=== PATIENT | male | born 1975 | race Two or more races ===

== ENCOUNTER → 2022-12-27 | Outpatient (CLI) | payer OTHER ==
[2022-12-27 22:58] LABS: Basophils # (A) 0.05 X 10*3/uL (0.00-0.10); Basophils % (A) 0.5 %; Eosinophils % (A) 2.2 %; HCT 44.6 % (39.6-50.0); HGB 14.2 d/dL (13.0-17.0); Lymphocytes # (A) 2.41 X 10*3/uL (0.90-5.00); Lymphocytes % (A) 26.2 %; MCH 28.3 pg (27.0-32.0); MCHC 31.8 d/dL (32.0-37.0); Monocytes # (A) 0.56 X 10*3/uL (0.20-1.00); Monocytes % (A) 6.1 %; NRBC Per 100 WBC 0 X 10*3/uL (0.00-0.01); Neutrophils # (A) 5.95 X 10*3/uL (1.80-7.70); Neutrophils % (A) 64.8 %; Platelet Count 261 X 10*3/uL (140-440); RBC 5.01 X 10*6/uL (4.40-5.60); RDW 12.7 % (11.5-14.5); WBC 9.19 X 10*3/uL (4.50-10.00)
[2022-12-27 23:23] LABS: ALT 28 U/L (10-49); AST 16 U/L (14-35); Albumin 4.1 d/dL (3.8-4.9); Albumin/Globulin Ratio 1.64 Ratio (1.60-3.17); Alkaline Phosphatase 60 U/L (41-126); BUN/Creat Ratio 20.25 Ratio (12.00-20.00); Blood Urea Nitrogen 16.2 mg/dL (9.0-27.0); Calcium 9.6 mg/dL (8.7-10.3); Chloride 107 mmol/L (96-109); Chol/HDL Ratio 3.16 Ratio; Globulin 2.5 d/dL (1.6-3.3); Glucose 103 mg/dL (70-110); LDL Cholesterol,Calculated 90.9 mg/dL (0.0-131.0); Sodium 143 mmol/L (135-145); Total Bilirubin 0.3 mg/dL (0.3-1.2); Total Protein 6.6 d/dL (6.2-8.2); VLDL Calculation 13.74 mg/dL (5.00-40.00)
== END | disposition home or self-care (01) ==
LOC: LABWHC1 10:16
PROVIDERS: ATTEND Family Medicine
DX: Z00.00 Encounter for general adult medical examination without abnormal findings (principal); Z12.5 Encounter for screening for malignant neoplasm of prostate; I10 Essential (primary) hypertension; E66.9 Obesity, unspecified; G47.33 Obstructive sleep apnea (adult) (pediatric)
CPT/HCPCS: 86803; 80061; 80053; 84443; 82607; 82746; 85025; 82306; 87086; 82043; 82570; 83036; 36415; G0103

== ENCOUNTER 2024-04-25 09:21 | Inpatient (IN) | payer BC ==
--- NOTE | 2024-04-25 09:36 | ED ---
General Adult HPI - General Stated complaint: Ch pressure, elevated temp Time Seen by Provider: 04/25/24 09:25 Source: patient, RN notes reviewed, old records reviewed - History of Present Illness Initial comments: This a 48-year-old male who presents to the emergency department with a past medical history significant for autism and panic attacks. Patient states this morning had a panic attack and after that he had a sharp chest pain which is now resolved. Patient states he also felt short of breath when he was having a pa eron attack. Patient states she was nauseous and did vomit and they gave him Zofran on the way in. Patient also was experiencing a temperature the last 2 days upwards of 101. Patient denies cough. Patient denies back pain. Patient has abdominal pain. - Related Data Allergies Allergy/AdvReac Type Severity Reaction Status Date / Time No Known Allergies Allergy Verified 04/25/24 09:52 Review of Systems ROS Statement: Those systems with pertinent positive or pertinent negative responses have been documented in the HPI. ROS Other: All systems not noted in ROS Statement are negative. General Exam - General Exam Comments Initial Comments: GENERAL: Patient is well-developed and well-nourished. Patient is nontoxic and well- hydrated and is in mild distress. ENT: Neck is soft and supple. No significant lymphadenopathy is noted. Oropharynx is clear. Moist mucous membranes. Neck has full range of motion without eliciting any pain. EYES: The sclera were anicteric and conjunctiva were pink and moist. Extraocular movements were intact and pupils were equal round and reactive to light. Eyelids were unremarkable. PULMONARY: Unlabored respirations. Good breath sounds bilaterally. No audible rales r honchi or wheezing was noted. CARDIOVASCULAR: There is a regular rate and rhythm without any murmurs gallops or rubs. ABDOMEN: Soft and nontender with normal bowel sounds. SKIN: Skin is clear with no lesions or rashes and otherwise unremarkable. NEUROLOGIC: Patient is alert and oriented x3. Cranial nerves II through XII are grossly intact. Motor and sensory are also intact. Normal speech, volume and content. Symmetrical smile. MUSCULOSKELETAL: Normal extremities with adequate strength and full range of motion. No lower extremity swelling or edema. No calf tenderness. LYMPHATICS: No significant lymphadenopathy is noted PSYCHIATRIC: Patient appears mildly anxious Course Vital Signs 04/25/24 04/25/24 04/25/24 09:30 09:48 10:00 Temperature 99.7 F H Pulse Rate 101 H 98 Pulse Rate [ 99 Bilateral Vascular Neurologist ] Respiratory 18 20 Rate Blood Pressure 103/63 103/63 O2 Sat by Pulse 97 97 Oximetry 04/25/24 04/25/24 04/25/24 10:30 11:00 11:46 Temperature 99.9 F H Pulse Rate 93 92 Pulse Rate [ Bilateral Vascular Neurologist ] Respiratory 26 H 25 H 18 Rate Blood Pressure 93/26 108/23 85/62 O2 Sat by Pulse 98 97 98 Oximetry Medical Decision Making - Medical Decision Making EKG is interpreted by myself EKG shows sinus tachycardia at 100 bpm OR interval 141 QRS 100 QT interval 342 QTc is 399. Patient's EKG shows no ST segment elevation. Patient does have some T wave versions in leads III and aVF as well as Q waves in 3 and aVF Was pt. sent in by a medical professional or institution ([facility]BI Grimaldo, CLAIMS INVESTIGATOR, urgent care, hospital, or fpc...) When possible be specific @ -No Did you speak to anyone other than the patient for history (EMS, parent, family, police, friend...)? What history was obtained from this source @ -No Did you review nursing and triage notes (agree or disagree)? Why? @ -I reviewed and agree with nursing and triage notes Were old charts reviewed (outside hosp., previous admission, EMS record, old EKG, old radiological studies, urgent care reports/EKG's, fpc records)? Report findings @ -No old charts were reviewed Differential Diagnosis? @ -Differential Chest Pain: Stable Angina, Unstable Angina, STEMI, NSTEMI Aortic Dissection, Pneumothorax, Musculoskeletal, Esophageal Spasm GERD, Cholecystitis, Pancreatitis, Zoster, this is not meant to be an all-inclusive list. EKG interpreted by me (3pts min.). @ -As above X-rays interpreted by me (1pt min.). @ -Chest x-ray shows no acute abnormality CT interpreted by me (1pt min.). @ -CT chest. CT shows no pulmonary embolism however the base of the lungs show some opacifications that could be consistent with atypical pneumonia U/S interpreted by me (1pt. min.). @ -None done What testing was considered but not performed or refused? (CT, X-rays, U/S, labs)? Why? @ -None What meds were considered but not given or refused? Why? @ -None Did you discuss the management of the patient with other professionals (professionals i.e. , PA, CLAIMS INVESTIGATOR, lab, RT, psych nurse, social media project manager, magnetic tape composer operator, teacher, chief technical officer, case investigator)? Give summary @ -I spoke with sound physicians agreed to admit the patient admit the patient wrote admitting orders Was smoking cessation discussed for >3mins.? @ -No Was critical care preformed (if so, how long)? @ -35 minutes Were there social determinants of health that impacted care today? How? (Homelessness, low income, unemployed, alcoholism, drug addiction, tr ansportation, low edu. Level, literacy, decrease access to med. care, shelter, rehab)? @ -No Was there de-escalation of care discussed even if they declined (Discuss DNR or withdrawal of care, Hospice)? DNR status @ -No What co-morbidities impacted this encounter? (DM, HTN, Smoking, COPD, CAD, Cancer, CVA, ARF, Chemo, Hep., AIDS, mental health diagnosis, sleep apnea, morbid obesity)? @ -None Was patient admitted / discharged? Hospital course, mention meds given and route, prescriptions, significant lab abnormalities, going to OR and other pertinent info. @ -Patient had a white count and had a fever so Rocephin was started. Patient's troponin was elevated so cardiology was consulted. They wanted to heparin started but since the patient had head trauma a few weeks ago without a normal CT reading we were waiting until the CT of the head was done and then heparin will be started. Cardiology came down to the emergency department to see the patient as did the sound physicians Undiagnosed new problem with uncertain prognosis? @ -No Drug Therapy requiring intensive monitoring for toxicity (Heparin, Nitro, Insulin, Cardizem)? @ -No Were any procedures done? @ -No Diagnosis/symptom? @ -NSTEMI Acute, or Chronic, or Acute on Chronic? @ -Acute Uncomplicated (without systemic symptoms) or Complicated (systemic symptoms)? @ -Complicated Side effects of treatment? @ -No Exacerbation, Progression, or Severe Exacerbation? @ -No Poses a threat to life or bodily function? How? (Chest pain, [place], [place], pneumonia, PE, COPD, DKA, ARF, appy, cholecystitis, CVA, Diverticulitis, Homicidal, Suicidal, threat to staff... and all critical care pts) @ -Yes this could lead to heart damage and poor perfusion with endorgan dysfunction Diagnosis/symptom? @ -Pneumonia Acute, or Chronic, or Acute on Chronic? @ -Acute Uncomplicated (without systemic symptoms) or Complicated (systemic symptoms)? @ -Complicated Side effects of treatment? @ -None Exacerbation, Progression, or Severe Exacerbation] @ -No Poses a threat to life or bodily function? @ -Yes this could lead to hypoxia and endorgan dysfunction - Lab Data Result diagrams: 04/25/24 09:46 04/25/24 09:46 Lab Results 04/25/24 04/25/24 04/25/24 Range/Units 09:46 09:46 09:46 WBC 26.3 H (3.8-10.6) k/uL RBC 4.64 (4.30-5.90) m/uL Hgb 14.1 (13.0-17.5) gm/dL Hct 41.5 (39.0-53.0) % MCV 89.5 (80.0-100.0) fL MCH 30.4 (25.0-35.0) pg MCHC 34.0 (31.0-37.0) g/dL RDW 13.3 (11.5-15.5) % Plt Count 171 (150-450) k/uL MPV 7.9 Neutrophils % 91 % Lymphocytes % 4 % Monocytes % 4 % Eosinophils % 1 % Basophils % 0 % Neutrophils # 23.8 H (1.3-7.7) k/uL Lymphocytes # 1.1 (1.0-4.8) k/uL Monocytes # 1.0 (0-1.0) k/uL Eosinophils # 0.1 (0-0.7) k/uL Basophils # 0.1 (0-0.2) k/uL PT 14.5 H (10.0-12.5) sec INR 1.4 H (<1.2) APTT 23.5 (22.0-30.0) sec D-Dimer (<0.60) mg/L FEU Sodium 138 (137-145) mmol/L Potassium 3.2 L (3.5-5.1) mmol/L Chloride 106 (98-107) mmol/L Carbon Dioxide 15 L (22-30) mmol/L Anion Gap 17 mmol/L BUN 27 H (9-20) mg/dL Creatinine 1.49 H (0.66-1.25) mg/dL Est GFR (CKD-EPI)AfAm 63 (>60 ml/min/1.73 sqM) Est GFR (CKD-EPI)NonAf 55 (>60 ml/min/1.73 sqM) Glucose 160 H (74-99) mg/dL Plasma Lactic Acid Marv (0.7-2.0) mmol/L Calcium 9.3 (8.4-10.2) mg/dL Magnesium 2.0 (1.6-2.3) mg/dL Total Bilirubin 1.5 H (0.2-1.3) mg/dL AST 47 (17-59) U/L ALT 40 (4-49) U/L Alkaline Phosphatase 134 H (38-126) U/L Troponin I (0.000-0.034) ng/mL Total Protein 6.6 (6.3-8.2) g/dL Albumin 3.9 (3.5-5.0) g/dL Influenza Type A (PCR) (Not Detectd) Influenza Type B (PCR) (Not Detectd) RSV (PCR) (Not Detectd) SARS-CoV-2 (PCR) (Not Detectd) 04/25/24 04/25/24 04/25/24 Range/Units 09:46 09:46 09:46 WBC (3.8-10.6) k/uL RBC (4.30-5.90) m/uL Hgb (13.0-17.5) gm/dL Hct (39.0-53.0) % MCV (80.0-100.0) fL MCH (25.0-35.0) pg MCHC (31.0-37.0) g/dL RDW (11.5-15.5) % Plt Count (150-450) k/uL MPV Neutrophils % % Lymphocytes % % Monocytes % % Eosinophils % % Basophils % % Neutrophils # (1.3-7.7) k/uL Lymphocytes # (1.0-4.8) k/uL Monocytes # (0-1.0) k/uL Eosinophils # (0-0.7) k/uL Basophils # (0-0.2) k/uL PT (10.0-12.5) sec INR (<1.2) APTT (22.0-30.0) sec D-Dimer 7.66 H (<0.60) mg/L FEU Sodium (137-145) mmol/L Potassium (3.5-5.1) mmol/L Chloride (98-107) mmol/L Carbon Dioxide (22-30) mmol/L Anion Gap mmol/L BUN (9-20) mg/dL Creatinine (0.66-1.25) mg/dL Est GFR (CKD-EPI)AfAm (>60 ml/min/1.73 sqM) Est GFR (CKD-EPI)NonAf (>60 ml/min/1.73 sqM) Glucose (74-99) mg/dL Plasma Lactic Acid Marv (0.7-2.0) mmol/L Calcium (8.4-10.2) mg/dL Magnesium (1.6-2.3) mg/dL Total Bilirubin (0.2-1.3) mg/dL AST (17-59) U/L ALT (4-49) U/L Alkaline Phosphatase (38-126) U/L Troponin I 1.310 H* (0.000-0.034) ng/mL Total Protein (6.3-8.2) g/dL Albumin (3.5-5.0) g/dL Influenza Type A (PCR) Not Detected (Not Detectd) Influenza Type B (PCR) Not Detected (Not Detectd) RSV (PCR) Not Detected (Not Detectd) SARS-CoV-2 (PCR) Not Detected (Not Detectd) 04/25/24 Range/Units 11:25 WBC (3.8-10.6) k/uL RBC (4.30-5.90) m/uL Hgb (13.0-17.5) gm/dL Hct (39.0-53.0) % MCV (80.0-100.0) fL MCH (25.0-35.0) pg MCHC (31.0-37.0) g/dL RDW (11.5-15.5) % Plt Count (150-450) k/uL MPV Neutrophils % % Lymphocytes % % Monocytes % % Eosinophils % % Basophils % % Neutrophils # (1.3-7.7) k/uL Lymphocytes # (1.0-4.8) k/uL Monocytes # (0-1.0) k/uL Eosinophils # (0-0.7) k/uL Basophils # (0-0.2) k/uL PT (10.0-12.5) sec INR (<1.2) APTT (22.0-30.0) sec D-Dimer (<0.60) mg/L FEU Sodium (137-145) mmol/L Potassium (3.5-5.1) mmol/L Chloride (98-107) mmol/L Carbon Dioxide (22-30) mmol/L Anion Gap mmol/L BUN (9-20) mg/dL Creatinine (0.66-1.25) mg/dL Est GFR (CKD-EPI)AfAm (>60 ml/min/1.73 sqM) Est GFR (CKD-EPI)NonAf (>60 ml/min/1.73 sqM) Glucose (74-99) mg/dL Plasma Lactic Acid Marv 2.7 H* (0.7-2.0) mmol/L Calcium (8.4-10.2) mg/dL Magnesium (1.6-2.3) mg/dL Total Bilirubin (0.2-1.3) mg/dL AST (17-59) U/L ALT (4-49) U/L Alkaline Phosphatase (38-126) U/L Troponin I (0.000-0.034) ng/mL Total Protein (6.3-8.2) g/dL Albumin (3.5-5.0) g/dL Influenza Type A (PCR) (Not Detectd) Influenza Type B (PCR) (Not Detectd) RSV (PCR) (Not Detectd) SARS-CoV-2 (PCR) (Not Detectd) Disposition Clinical Impression: Acute non-ST elevation myocardial infarction (NSTEMI), Pneumonia Disposition: ADMITTED IP TO THIS HOSP Referrals: None,Stated [REFERRING] - 1-2 days Time of Disposition: 13:20
[2024-04-25] MEDS: ACETAMINOPHEN TAB 500 MG TAB PO STA (09:58)
[2024-04-25] MEDS: IBUPROFEN 600 MG TAB PO STA (10:00)
[2024-04-25] MEDS: LORazepam 2 MG/ML INJ IV STA (10:04)
[2024-04-25] MEDS: SODIUM CHLORIDE 0.9% 500 ML 500 ML IV STA (10:07)
[2024-04-25 10:12] LABS: ALT 40 U/L (4-49); AST 47 U/L (17-59); African American GFR (CKD) 63 (>60 ml/min/1.73 sqM); Albumin 3.9 g/dL (3.5-5.0); Alkaline Phosphatase 134 U/L (38-126); Anion Gap 17 mmol/L; Blood Urea Nitrogen 27 mg/dL (9-20); Calcium 9.3 mg/dL (8.4-10.2); Carbon Dioxide 15 mmol/L (22-30); Chloride 106 mmol/L (98-107); Glucose 160 mg/dL (74-99); Non-African American GFR(CKD) 55 (>60 ml/min/1.73 sqM); Potassium 3.2 mmol/L (3.5-5.1); Sodium 138 mmol/L (137-145); Total Bilirubin 1.5 mg/dL (0.2-1.3); Total Protein 6.6 g/dL (6.3-8.2)
[2024-04-25 10:18] LABS: Basophils # (A) 0.1 k/uL (0-0.2); Basophils % (A) 0 %; Eosinophils # (A) 0.1 k/uL (0-0.7); Eosinophils % (A) 1 %; HCT 41.5 % (39.0-53.0); HGB 14.1 gm/dL (13.0-17.5); Lymphocytes # (A) 1.1 k/uL (1.0-4.8); Lymphocytes % (A) 4 %; MCH 30.4 pg (25.0-35.0); MCV 89.5 fL (80.0-100.0); Mean Platelet Volume 7.9; Monocytes % (A) 4 %; Neutrophils # (A) 23.8 k/uL (1.3-7.7); Neutrophils % (A) 91 %; Platelet Count 171 k/uL (150-450); RBC 4.64 m/uL (4.30-5.90); RDW 13.3 % (11.5-15.5); WBC 26.3 k/uL (3.8-10.6)
[2024-04-25 10:26] LABS: INR 1.4 (<1.2); Partial Thromboplastin Time 23.5 sec (22.0-30.0); Prothrombin Time 14.5 sec (10.0-12.5)
--- NOTE | 2024-04-25 10:29 | XR ---
EXAMINATION TYPE: XR chest 2V DATE OF EXAM: 04/25/2024 10:20 AM COMPARISON: None. CLINICAL INDICATION: Male, 48 years old with history of Chest Pain, TECHNIQUE: XR chest 2V view(s) obtained. FINDINGS: The heart size is normal. The pulmonary vasculature is normal. The lungs are clear. IMPRESSION: 1. No acute pulmonary process. [facility], , 04/25/2024 10:27 AM
[2024-04-25 10:36] LABS: Influenza A Not Detected (Not Detectd); Influenza B Not Detected (Not Detectd); RSV Not Detected (Not Detectd)
--- NOTE | 2024-04-25 11:06 | CT ---
EXAMINATION TYPE: CT chest angio for PE CT DLP: 436 mGycm, Automated exposure control for dose reduction was used. DATE OF EXAM: 04/25/2024 10:51 AM COMPARISON: Chest radiograph from same day. CLINICAL INDICATION:Male, 48 years old with history of Chest pain; SOB TECHNIQUE/CONTRAST: CTA scan of the thorax is performed with IV Contrast, patient injected with 80 mL of Isovue 370, pulm onary embolism protocol. MIP images are created and reviewed. FINDINGS: Pulmonary Artery: There is no evidence for a filling defect within the pulmonary vasculature to sugge st acute pulmonary embolism. The pulmonary artery is of normal size. Lungs/Pleura: No pleural effusion or pneumothorax. Minimal dependent groundglass opacities/atelectasi s. No suspicious pulmonary nodule or mass. Airway: Large airways are patent. Heart: Heart is within normal limits for size.. Vasculature: No evidence of aortic aneurysm. Mediastinum: No gross evidence of adenopathy. Musculoskeletal: No acute osseous abnormalities Soft Tissues: Unremarkable. Lower neck: No significant findings. Upper Abdomen: No significant findings. IMPRESSION: 1. No evidence of pulmonary embolism. 2. Minimal dependent groundglass opacities/atelectasis. Correlate for possible atypical pneumonia. [facility], , 04/25/2024 11:04 AM
[2024-04-25] MEDS ORDERED: HEPARIN SODIUM 1,000 UN/ML (10ML VL) IV PRN (11:10)
[2024-04-25] MEDS: cefTRIAXone IN SWFI 1,000 MG/10 ML SYRINGE IVP STA (11:37)
[2024-04-25] MEDS: SODIUM CHLORIDE 0.9% 1,000 ML IV STA (12:09)
[2024-04-25] MEDS: SODIUM CHLORIDE 0.9% 1,000 ML IV SCH (12:45)
[2024-04-25] MEDS: LACTATED RINGERS 1,000 ML IV ONE ×2 (12:53→12:59)
--- NOTE | 2024-04-25 13:09 | P.HPIM ---
History of Present Illness H&P Date: 04/25/24 History of present illness; 48-year-old man with PMH of autism panic attacks, had a panic attack earlier this morning with associated sharp chest pain, shortness of breath and dizziness. He describes the chest pain as being a sharp pain that is centrally located without radiation. He notes the pain having been 910/10 in intensity. He notes that nothing alleviates the pain and even presently when exerting himself in the bed he notes some centrally located chest pain. Additionally, he endorses 2-day history of elevated temperature, with Tmax being 101 F, and "not feeling well". He states that he had been feeling this way dating back more than a week ago, at that time he went to [facility] and was prescribed amoxicillin and prednisone and he began to feel better. However, he notes that this past weekend he began feeling the same way he had been before, with increased fatigue and fevers. Labratory review: -WBCs 26.3, hemoglobin 14.1, hematocrit 41.5, platelet 171; D-dimer 7.66; sodium 138, potassium 3.2, bicarb 15, BUN 27, creatinine 1.49, calcium 9.3, magnesium 2.0, total bilirubin 1.5, AST 47, ALT 40, alkaline phosphatase 134; troponin 1.310 -Respiratory viral panel all negative Imaging: -Chest x-ray done in the ER showed no acute pulmonary process -CTA chest showed no evidence of pulmonary embolism with minimal dependent groundglass opacity/atelectasis, to be correlated for atypical pneumonia -EKG done in the ER showed heart rate of 100, no ST segment elevation or depression seen, T wave inversions. Vitals: Temp 99.7 F, blood pressure 103/63, heart rate 101, respiratory rate 18, SpO2 97% on room air Patient admitted to internal medicine service REVIEW OF SYSTEMS: Pertinent positives and negatives noted in HPI. The rest of the 14-point review of systems is negative. Physical Exam: General: nontoxic, in some distress/discomfort Derm: warm, dry, intact Head: atraumatic, normocephalic, symmetric Eyes: EOMI, anicteric sclera Mouth: no lip lesion, mucus membranes moist Cardiovascular: S1 S2 reg, no murmur, rubs, or gallops Lungs: CTA bilateral, no rales, no accessory muscle use Abdominal: soft, non-tender to palpataion, no appreciable organomegaly Extremities: no gross muscle atrophy, no edema, no contractures Neuro: Alert, Oriented, CNII-XII grossly intact, gait normal Psych: well appearing, appropriate affect Assessment and plan 48-year-old man with PMH of autism panic attacks, had a panic attack earlier this morning with associated sharp chest pain, shortness of breath and dizziness. He describes the chest pain as being a sharp pain that is centrally located without radiation. He notes the pain having been 910/10 in intensity. Additionally, he endorses 2-day history of elevated temperature, with Tmax being 101 F, and "not feeling well". #Acute NSTEMI #History of panic attacks -Trend troponins: Initial troponin 1.310 -EKG done in the ER showed sinus rhythm heart rate of 100, with T wave inversions in inferior leads -Continue with aspirin 81 mg daily -Continue Lipitor 40 mg nightly -To be initiated on heparin drip, has had head trauma in the last [address] brain ordered, currently pending, continue with heparin drip pending the result -Lipid panel and hemoglobin A1c pending -Cardiac monitoring -Supplemental oxygen as needed -Cardiology consulted -Echocardiogram ordered #Severe sepsis secondary to likely atypical pneumonia #Leukocytosis of unknown origin with neutrophilic predominance, atypical pneumonia v dehydration #Anion gap metabolic acidosis #Acute kidney injury #Hypokalemia #Transaminitis #Elevated D-dimer -CTA chest read and reviewed, ruled out pulmonary embolism -Total bilirubin 1.5, alkaline phosphatase 134 -Lactic acid 2.7 -Started on Zithromax IV 500 mg and Rocephin IV 2 g daily -Liver US pending -Blood culture pending -Sputum culture pending -Legionella pending -LR 150 cc/h -Continue monitor CBC and CMP DVT prophylaxis: To be started on heparin drip The patient is admitted with an anticipated more than than 2 midnight stay for evaluation of sepsis and non-STEMI Anticipated discharge place: Pending clinical course Dictation was produced using [employer] dictation software. please excuse any grammatical, word or spelling errors. A total of 55 minutes was spent on the care of this complex patient more than 50% of the time was spent in counseling and care coordination. I have seen and evaluated the patient today. Discussed with the resident and agree with the residents finding and plan as documented in the resident's note. Changes highlighted in blue font. Past Medical History Past Medical History: Hypertension History of Any Multi-Drug Resistant Organisms: None Reported Past Psychological History: Anxiety, Panic Disorder Smoking Status: Never smoker Past Alcohol Use History: Occasional Past Drug Use History: None Reported Medications and Allergies Allergies Allergy/AdvReac Type Severity Reaction Status Date / Time No Known Allergies Allergy Verified 04/25/24 09:52 Physical Exam Vitals: Vital Signs Temp Pulse Pulse Resp BP Pulse Ox 04/25/24 11:46 99.9 F H 92 18 85/62 98 04/25/24 11:00 93 25 H 108/23 97 04/25/24 10:30 26 H 93/26 98 04/25/24 10:00 98 20 103/63 97 04/25/24 09:48 99 04/25/24 09:30 99.7 F H 101 H 18 103/63 97 Intake and Output 04/24/24 04/25/24 04/25/24 22:59 06:59 14:59 Other: Weight 93.894 kg Results CBC & Chem 7: 04/25/24 09:46 04/25/24 09:46 Labs: Abnormal Lab Results - Last 24 Hours (Table) 04/25/24 04/25/24 04/25/24 Range/Units 09:46 09:46 09:46 WBC 26.3 H (3.8-10.6) k/uL Neutrophils # 23.8 H (1.3-7.7) k/uL PT 14.5 H (10.0-12.5) sec INR 1.4 H (<1.2) D-Dimer (<0.60) mg/L FEU Potassium 3.2 L (3.5-5.1) mmol/L Carbon Dioxide 15 L (22-30) mmol/L BUN 27 H (9-20) mg/dL Creatinine 1.49 H (0.66-1.25) mg/dL Glucose 160 H (74-99) mg/dL Total Bilirubin 1.5 H (0.2-1.3) mg/dL Alkaline Phosphatase 134 H (38-126) U/L Troponin I (0.000-0.034) ng/mL 04/25/24 04/25/24 Range/Units 09:46 09:46 WBC (3.8-10.6) k/uL Neutrophils # (1.3-7.7) k/uL PT (10.0-12.5) sec INR (<1.2) D-Dimer 7.66 H (<0.60) mg/L FEU Potassium (3.5-5.1) mmol/L Carbon Dioxide (22-30) mmol/L BUN (9-20) mg/dL Creatinine (0.66-1.25) mg/dL Glucose (74-99) mg/dL Total Bilirubin (0.2-1.3) mg/dL Alkaline Phosphatase (38-126) U/L Troponin I 1.310 H* (0.000-0.034) ng/mL
--- NOTE | 2024-04-25 13:17 | P.CRDCN ---
History of Present Illness History of present illness: HISTORY OF PRESENT ILLNESS: This is a 48-year-old male with a past medical history significant for hypertension, obesity, and anxiety. Patient not follow with a geriatric nurse practitioner. We have been asked to see the patient in consultation for elevated troponins. Patient examined at the bedside in the emergency room. Patient states this morning he had a panic attack. He states shortly after this he began to have chest pain in the middle of his chest that felt like a stabbing sensation. He s tates the pain was in the middle of his chest and also on the right side of his chest. He states the pain lasted for about 15 minutes and then subsided. He states that he was not doing anything exertionally related at that time. He denies having any previous episodes of chest pain in the past. The patient does report that he has been feeling ill over the past week. He states that he went to his PCP office last Thursday and was diagnosed with an upper respiratory infection and was prescribed steroids and antibiotics. He states that he was starting to feel little bit better until this weekend when he started to feel worse again. He does report having a fever at home. According to EMS he had 101.0 temperature and route to the hospital. He continues to have a low-grade fever of 99.9. Patient is also hypotensive with a systolic blood pressure in the 80s90s. DIAGNOSTICS: - EKG reveals sinus tachycardia with T wave inversions inferiorly. - Chest xray negative for acute process. - Chest CTA: Negative for pulmonary embolism. Minimal dependent groundglass opacity/atelectasis. Correlate for possible atypical pneumonia. - Laboratory data: WBC 26.3. Hemoglobin 14.1. Platelet count 171. Sodium 138. Potassium 3.2. BUN 27. Creatinine 1.49. Lactic acid 2.7. Troponin 1.310. - Current home cardiac medications include lisinopril 20 mg daily and amlodipine 5 mg daily - No previous echocardiogram, stress test, or cardiac catheterization available in EMR for review REVIEW OF SYSTEMS: At the time of my exam: CONSTITUTIONAL: Reports fever or chills. HEENT: Denies blurred vision, vision changes, or eye pain. Denies hemoptysis CARDIOVASCULAR: Denies chest pain. Denies orthopnea. Denies PND. Denies palpitations RESPIRATORY: Denies shortness of breath. GASTROINTESTINAL: Denies abdominal pain. Denies nausea or vomiting. HEMATOLOGIC: Denies bleeding disorders. GENITOURINARY: Denies any blood in urine. SKIN: Denies pruitis. Denies rash. PHYSICAL EXAM: VITAL SIGNS: Reviewed. GENERAL: Well-developed in no acute distress. HEENT: Head is normocephalic. Pupils are equal, round. Sclerae anicteric. Mucous membranes of the mouth are moist. Neck supple. No JVD or thyromegaly LUNGS: Respirations even and unlabored. Lungs with fine bilateral crackles HEART: Regular rate and rhythm. S1 and S2 heard. ABDOMEN: Soft. Nondistended. Nontender. EXTREMITIES: Normal range of motion. No clubbing or cyanosis. Peripheral pulses intact. No lower extremity edema NEUROLOGIC: Awake and alert. Oriented x 3. ASSESSMENT: Elevated troponins, Type I versus type II [place] Recent upper respiratory infection Sepsis with leukocytosis, fever, and hypotension Acute kidney injury Elevated D-dimer, CTA negative for pulmonary embolism History of hypertension PLAN: Obtain 2D echo to assess cardiac structure and function Trend troponins Begin IV heparin Begin IV fluids. Repeat kidney function in a.m. Add aspirin 81 mg daily Add atorvastatin 40 mg at night Check lipid panel and hemoglobin A1c Hold home antihypertensive medications due to hypotension Consult pulmonary for evaluation Patient may require cardiac catheterization pending trend of troponins and echocardiogram results Further recommendations pending patient course Nurse practitioner note has been reviewed by physician. Signing provider agrees with the documented findings, assessment, and plan of care documented by [employer] AD[employer]RATION SUPERVISOR as a scribe. Past Medical History Past Medical History: Hypertension History of Any Multi-Drug Resistant Organisms: None Reported Past Psychological History: Anxiety, Panic Disorder Smoking Status: Never smoker Past Alcohol Use History: Occasional Past Drug Use History: None Reported Medications and Allergies Allergies Allergy/AdvReac Type Severity Reaction Status Date / Time No Known Allergies Allergy Verified 04/25/24 09:52 Physical Exam Vitals: Vital Signs Temp Pulse Pulse Resp BP Pulse Ox 04/25/24 12:46 85 18 90/43 99 04/25/24 11:46 99.9 F H 92 18 85/62 98 04/25/24 11:00 93 25 H 108/23 97 04/25/24 10:30 26 H 93/26 98 04/25/24 10:00 98 20 103/63 97 04/25/24 09:48 99 04/25/24 09:30 99.7 F H 101 H 18 103/63 97 Intake and Output 04/24/24 04/25/24 04/25/24 22:59 06:59 14:59 Other: Weight 93.894 kg Results 04/25/24 09:46 04/25/24 09:46 Cardiac Enzymes 04/25/24 04/25/24 Range/Units 09:46 09:46 AST 47 (17-59) U/L Troponin I 1.310 H* (0.000-0.034) ng/mL Coagulation 04/25/24 Range/Units 09:46 PT 14.5 H (10.0-12.5) sec APTT 23.5 (22.0-30.0) sec CBC 04/25/24 Range/Units 09:46 WBC 26.3 H (3.8-10.6) k/uL RBC 4.64 (4.30-5.90) m/uL Hgb 14.1 (13.0-17.5) gm/dL Hct 41.5 (39.0-53.0) % Plt Count 171 (150-450) k/uL Comprehensive Metabolic Panel 04/25/24 Range/Units 09:46 Sodium 138 (137-145) mmol/L Potassium 3.2 L (3.5-5.1) mmol/L Chloride 106 (98-107) mmol/L Carbon Dioxide 15 L (22-30) mmol/L BUN 27 H (9-20) mg/dL Creatinine 1.49 H (0.66-1.25) mg/dL Glucose 160 H (74-99) mg/dL Calcium 9.3 (8.4-10.2) mg/dL AST 47 (17-59) U/L ALT 40 (4-49) U/L Alkaline Phosphatase 134 H (38-126) U/L Total Protein 6.6 (6.3-8.2) g/dL Albumin 3.9 (3.5-5.0) g/dL Current Medications Generic Name Dose Route Start Last Admin Trade Name Freq PRN Reason Stop Dose Admin Aspirin 81 mg 04/26/24 09:00 Aspirin 81 Mg PO DAILY [facility] Atorvastatin Calcium 40 mg 04/25/24 21:00 Atorvastatin 40 Mg Tab PO HS JOB Heparin Sodium (Porcine) 0 unit 04/25/24 11:10 Heparin Sodium 1,000 Un/Ml (10ml Vl) IV PER PROTOCOL PRN Low PTT Protocol Heparin Sodium/Sodium Chloride 250 mls @ 10 mls/hr 04/25/24 11:15 25,000 unit/ Sodium Chloride IV .Q24H JOB Protocol 10.65 UNITS/KG/HR Lactated Ringer's 1,000 mls @ 150 mls/hr 04/25/24 12:37 04/25/24 12:53 Lactated Ringers IV 04/25/24 19:16 100 mls/hr .Q6H40M ONE Administration Lactated Ringer's 1,000 mls @ 999 mls/hr 04/25/24 12:55 04/25/24 12:59 Lactated Ringers IV 04/25/24 13:55 999 mls/hr .Q1H1M ONE Administration Ceftriaxone Sodium 2 gm/ 50 mls @ 100 mls/hr 04/26/24 09:00 Sodium Chloride IVPB Q24HR JOB Protocol Azithromycin 500 mg/ Sodium 250 mls @ 250 mls/hr 04/25/24 13:00 Chloride IVPB 04/27/24 09:59 DAILY JOB Protocol Potassium Chloride 40 meq 04/25/24 13:00 Potassium Chloride Er 20 Meq Tab.Er PO 04/25/24 13:01 ONCE STA Intake and Output 04/24/24 04/25/24 04/25/24 22:59 06:59 14:59 Other: Weight 93.894 kg Patient Weight 04/26/24 06:59 Weight 93.894 kg 04/25/24 09:46 04/25/24 09:46
[2024-04-25] MEDS ORDERED: NITROGLYCERIN SL TABS 0.4 MG TAB SUBLINGUAL PRN (13:20)
[2024-04-25] MEDS: POTASSIUM CHLORIDE ER 20 MEQ TAB.ER PO STA (13:49)
--- NOTE | 2024-04-25 14:48 | US ---
EXAMINATION TYPE: US liver DATE OF EXAM: 04/25/2024 COMPARISON: NONE CLINICAL INDICATION: Male, 48 years old with history of transaminitis; LFTs TECHNIQUE: Grayscale and color Doppler imaging of the right upper quadrant was performed. FINDINGS: EXAM MEASUREMENTS: Liver Length: 18.8 cm Gallbladder Wall: 0.3 cm CBD: obscured by bowel Right Kidney: 10.2x6.3x5.4 cm [employer] INST[employer]ER NOTES: Pancreas: Obscured by bowel gas Liver: increased size and echogenicity Gallbladder: wnl as best visualized Evidence for sonographic De Paz's sign: No CBD: Obscured by overlying bowel gas Right Kidney: wnl as best visualized exam very limited by bowel gas, body habitus, rib shadows IMPRESSION: 1. Hepatomegaly. 2. Limited evaluation due to bowel gas and body habitus [facility], , 04/25/2024 2:45 PM
--- NOTE | 2024-04-25 15:05 | CT ---
EXAMINATION TYPE: CT brain wo con DATE OF EXAM: 04/25/2024 2:56 PM COMPARISON: None. CLINICAL INDICATION: Male, 48 years old with history of Trauma, PT has previous hx of fall, head inju ry. Dr. Morfin also wants to start heparin drip. Pt had contrast 4 hours prior for CTA chest, Dr. Shirley breen said to wait 4 hours post injection to scan brain. TECHNIQUE: Brain: Axial CT images of the brain were obtained with coronal and sagittal reformats created and rev iewed. Contrast used: None. Oral contrast used: None. CT DLP: 1168.4 mGycm, Automated exposure control for dose reduction was used. FINDINGS: Brain: Extra-axial spaces: No abnormal extra-axial fluid collections. Ventricular system: Within normal limits Cerebral parenchyma: No acute intraparenchymal hemorrhage or mass effect. The pham-white junction is well differentiated. Cerebellum: Unremarkable. Mass effect: No evidence of midline shift. Intracranial vasculature: unremarkable Soft tissues: Normal. Calvarium/osseous structures: No depressed skull fracture. Paranasal sinuses and mastoid air cells: Mild scattered paranasal sinus disease. Visualized orbits: Orbital contents are intact. IMPRESSION: No acute intracranial process. [facility], , 04/25/2024 3:02 PM
[2024-04-25] MEDS: HEPARIN SODIUM 1,000 UN/ML (10ML VL) IV ONE (15:21)
[2024-04-25] MEDS: HEPARIN SOD,PORK IN 0.45% NACL 25,000 UNIT in 0.45% NACL 1 250ML.BAG IV SCH (15:25)
[2024-04-25] MEDS: AZITHROMYCIN 500 MG in SODIUM CHLORIDE 0.9% 250 ML IVPB SCH (15:30)
[2024-04-25 16:03] LABS: Chol/HDL Ratio 2.41 Ratio; LDL Cholesterol,Calculated 73.3 mg/dL (0.0-131.0); VLDL Calculation 10.36 mg/dL (5.00-40.00)
[2024-04-25] MEDS: ONDANSETRON 4 MG/2 ML VIAL IVP PRN (16:13)
[2024-04-25 20:04] LABS: Appearance,Urine Clear (Clear); Bacteria,Urine Rare /hpf; Bilirubin,Urine Negative (Negative); Blood,Urine Moderate (Negative); Color,Urine Yellow; Glucose,Urine (UA) Negative (Negative); Ketones,Urine Trace (Negative); Leukocyte Esterase,Urine Moderate (Negative); Mucus,Urine Rare /hpf; Nitrite,Urine Negative (Negative); Protein,Urine 1+ (Negative); RBC,Urine 14 /hpf (0-5); Specific Gravity,Urine >1.050 (1.001-1.035); Squamous Epithelial Cell,Urine 1 /hpf (0-4); WBC,Urine 33 /hpf (0-5)
[2024-04-25] MEDS: ATORVASTATIN 40 MG TAB PO SCH (20:23)
[2024-04-26] MEDS: SODIUM CHLORIDE 0.9% 500 ML 500 ML IV ONE (01:29)
[2024-04-26] MEDS: SODIUM CHLORIDE 0.9% 1,000 ML IV SCH (03:18)
--- NOTE | 2024-04-26 05:20 | P.CNPUL ---
History of Present Illness Consult date: 04/26/24 Requesting physician: Sarahi Muhammad Reason for consult: pneumonia Chief complaint: Shortness of breath, chest pain History of present illness: Patient is a 48-year-old male with past medical history significant for hypertension, urethral stricture with previous dilation. His primary care pr ovider is Dr. Garvin. Patient presents emergency department yesterday afternoon complaining of substernal chest pain, diaphoresis, nausea and vomiting. Chest pain, severe, nonradiating, reported lasting 10 to 15 minutes. He did take 4 baby aspirin at home. His is at bedside, and states that he did get confused and pulled down the shower curtain at home. Patient believes he was having a panic attack. Of note, patient reportedly recently treated for URI by his PCP 1 to 2 weeks ago, given a course of amoxicillin and prednisone burst taper. States his symptoms initially improved and then worsened following completion of medications. Reportedly, having intermittent fevers, cough with occasional clear phlegm production. Denies purulent sputum, hemoptysis. Denies any abdominal pain. Denies any diarrhea. Appetite has been fair. Viral screen done at our facility negative for influenza A/B, COVID, RSV. Workup in the emergency department including a chest CTA which did not show any filling defects consistent with pulmonary embolism. Very minimal dependent groundglass opacities or atelectasis. No pleural effusions or pneumothoraces. CBC remarkable for leukocytosis with a WBC count of 26.3, hemoglobin 14.1, platelets 171. D-dimer was 7.6. CMP: Sodium 138, potassium 3.2, chloride 106, serum bicarb 15, BUN 27, creatinine 1.49, glucose 160. NT proBNP elevated at 2040. Troponins were elevated at 1.3, 1.17, and 0.8 respectively. EKG: Normal sinus rhythm, rate 100 bpm, T wave inversions in 3, aVF; no ST segment elevation or depressions. Patient was started on IV heparin per cardiology. Patient currently being evaluated in the emergency department. Resting comfortably in bed. His spouse is at bedside. Denies any further chest pain. Heparin continues per protocol. Denies heart palpitations, lightheadedness, syncopal events, orthopnea, PND, lower extremity edema. He is alert and oriented. Brain CT was done earlier and unremarkable for acute intracranial process. Did have low-grade temperature of 99.9 F. Empirically placed on antibiotics in the ED. UA remarkable for pyuria and rare bacteriuria. Blood pressure is marginal, did receive 2 L crystalloid fluid bolus in the ED. Current vital signs: Temperature 97.6 F, heart rate 70 bpm, blood pressure 87/59 mmHg, SpO2 97% on room air. Review of Systems Constitutional: Reports chills, Reports fatigue, Reports fever, Reports night sweats, Reports poor appetite, Denies weight gain, Denies weight loss Ears, nose, mouth and throat: Denies headache, Denies nasal congestion, Denies nasal discharge, Denies post-nasal drip, Denies sinus pain, Denies sinus pressure, Denies sore throat Cardiovascular: Reports as per HPI Respiratory: Reports as per HPI Gastrointestinal: Reports as per HPI Genitourinary: Reports dysuria, Reports urinary frequency, Reports urinary retention, Denies flank pain, Denies hematuria Musculoskeletal: Denies limitation of motion Integumentary: Denies rash Neurological: Denies seizures, Denies syncope Psychiatric: Reports anxiety, Denies depression Past Medical History Past Medical History: Hypertension History of Any Multi-Drug Resistant Organisms: None Reported Past Psychological History: Anxiety, Panic Disorder Smoking Status: Never smoker Past Alcohol Use History: Occasional Past Drug Use History: None Reported Medications and Allergies Home Medications Medication Instructions Recorded Confirmed Type Multivitamins, Thera [Multivitamin 1 tab PO DAILY 04/25/24 04/25/24 History (formulary)] amLODIPine [Norvasc] 5 mg PO DAILY 04/25/24 04/25/24 History lisinopriL [Zestril] 20 mg PO DAILY 04/25/24 04/25/24 History Allergies Allergy/AdvReac Type Severity Reaction Status Date / Time No Known Allergies Allergy Verified 04/25/24 09:52 Physical Exam Vitals: Vital Signs Temp Pulse Pulse Resp BP Pulse Ox 04/26/24 00:13 67 18 87/59 97 04/25/24 21:43 65 18 78/60 99 04/25/24 20:26 97.6 F 72 18 88/59 100 04/25/24 18:30 80 14 82/55 99 04/25/24 18:00 71 16 82/52 99 04/25/24 17:39 97.9 F 04/25/24 17:30 74 16 75/57 99 04/25/24 17:00 80 17 71/52 96 04/25/24 16:30 86 20 72/53 96 04/25/24 16:00 85 16 87/58 97 04/25/24 15:30 20 86/63 95 04/25/24 15:00 81 18 89/56 96 04/25/24 14:30 87 11 L 88/60 99 04/25/24 14:00 86 9 L 105/66 98 04/25/24 13:30 86 21 72/55 98 04/25/24 13:00 89 11 L 90/43 99 04/25/24 12:46 97.4 F L 85 18 90/43 99 04/25/24 12:30 88 14 82/58 04/25/24 12:00 21 80/62 98 04/25/24 11:46 99.9 F H 92 18 85/62 98 04/25/24 11:30 89 25 H 84/66 99 04/25/24 11:00 93 25 H 108/23 97 04/25/24 10:30 26 H 93/26 98 04/25/24 10:00 98 20 103/63 97 04/25/24 09:48 99 04/25/24 09:30 99.7 F H 101 H 18 103/63 97 Intake and Output 04/25/24 04/25/24 04/26/24 14:59 22:59 06:59 Other: Weight 93.894 kg GENERAL EXAM: Alert, 48-year-old male, comfortable in no apparent distress. HEAD: Normocephalic and atraumatic EYES: Normal reaction of pupils, equal size. NOSE: Clear with pink turbinates. THROAT: No erythema or exudates. NECK: No masses, no JVD. CHEST: No chest wall deformity. LUNGS: Equal air entry with no crackles, wheeze, rhonchi or dullness. On room air. No conversational dyspnea or accessory muscle use.. CVS: S1 and S2 normal with soft grade 1 systolic murmur, regular rhythm. No other extra heart sounds ABDOMEN: No hepatosplenomegaly, active bowel sounds, no guarding or rigidity. SPINE: No scoliosis or deformity SKIN: No rashes CENTRAL NERVOUS SYSTEM: No focal deficits, tone is normal in all 4 extremities. EXTREMITIES: There is no peripheral edema, clubbing, or cyanosis. Peripheral pulses are intact. Results - Laboratory Findings CBC and BMP: 04/26/24 07:58 04/26/24 07:30 PT/INR, D-dimer PT 14.5 sec (10.0-12.5) H 04/25/24 09:46 INR 1.4 (<1.2) H 04/25/24 09:46 D-Dimer 7.66 mg/L FEU (<0.60) H 04/25/24 09:46 Abnormal lab findings: Abnormal Labs 04/25/24 04/25/24 04/25/24 09:46 09:46 09:46 WBC 26.3 H Neutrophils # 23.8 H PT 14.5 H INR 1.4 H APTT D-Dimer Potassium 3.2 L Carbon Dioxide 15 L BUN 27 H Creatinine 1.49 H Glucose 160 H Plasma Lactic Acid Marv Total Bilirubin 1.5 H Alkaline Phosphatase 134 H Troponin I Ur Specific [place] Urine Protein Urine Ketones Urine Blood Ur Leukocyte Esterase Urine RBC Urine WBC Urine Bacteria Urine Mucus 04/25/24 04/25/24 04/25/24 09:46 09:46 11:25 WBC Neutrophils # PT INR APTT D-Dimer 7.66 H Potassium Carbon Dioxide BUN Creatinine Glucose Plasma Lactic Acid Marv 2.7 H* Total Bilirubin Alkaline Phosphatase Troponin I 1.310 H* Ur Specific [place] Urine Protein Urine Ketones Urine Blood Ur Leukocyte Esterase Urine RBC Urine WBC Urine Bacteria Urine Mucus 04/25/24 04/25/24 04/25/24 13:08 16:11 16:11 WBC Neutrophils # PT INR APTT D-Dimer Potassium Carbon Dioxide BUN Creatinine Glucose Plasma Lactic Acid Marv 3.0 H* Total Bilirubin Alkaline Phosphatase Troponin I 1.170 H* 0.859 H* Ur Specific [place] Urine Protein Urine Ketones Urine Blood Ur Leukocyte Esterase Urine RBC Urine WBC Urine Bacteria Urine Mucus 04/25/24 04/25/24 04/25/24 18:20 19:19 19:19 WBC Neutrophils # PT INR APTT D-Dimer Potassium Carbon Dioxide BUN Creatinine Glucose Plasma Lactic Acid Marv 2.5 H* Total Bilirubin Alkaline Phosphatase Troponin I 0.804 H* Ur Specific [place] >1.050 H Urine Protein 1+ H Urine Ketones Trace H Urine Blood Moderate H Ur Leukocyte Esterase Moderate H Urine RBC 14 H Urine WBC 33 H Urine Bacteria Rare H Urine Mucus Rare H 04/25/24 21:11 WBC Neutrophils # PT INR APTT 58.4 H D-Dimer Potassium Carbon Dioxide BUN Creatinine Glucose Plasma Lactic Acid Marv Total Bilirubin Alkaline Phosphatase Troponin I Ur Specific [place] Urine Protein Urine Ketones Urine Blood Ur Leukocyte Esterase Urine RBC Urine WBC Urine Bacteria Urine Mucus - Diagnostic Findings Chest x-ray: image reviewed Assessment and Plan Assessment: Acute dyspnea, chest CTA unremarkable for filling defects consistent with pulmonary embolism, very minimal bibasilar groundglass opacity disease/atelectasis. No obvious focal infiltrates or definitive pneumonia. Elevated troponins, rule out non-ST elevation VT, continues on IV heparin per cardiology Acute leukocytosis Anion gap metabolic acidosis Acute kidney injury, creatinine 1.49 Hypokalemia, replaced History of urethral stricture with previous dilation History of hypertension Obesity, with a BMI 31.5 kg/m Plan: Patient's medications, labs, chest x-ray reviewed Currently on room air Continues on IV heparin per cardiology Echocardiogram scheduled for the morning Blood pressure remains marginal, give an additional 500 mL normal saline bolus and continue normal saline at 75 mm/h Continues on antibiotics, which are empiric Blood and urine cultures pending Procalcitonin level Viral screen negative for influenza A/B, COVID, RSV We will continue to follow I have personally seen and examined the patient, performed the documentation and the assessment and plan as written. Number of minutes spent on the visit:20 This is a joint evaluation that was done along with the nurse practitioner. This evaluation was done more than 30 minutes, specifically 32 minutes. The patient was seen and evaluated. The patient presented to us with a vague subste rnal chest pain and diaphoresis along with nausea and vomiting. Noted, the patient's cardiac enzymes were elevated. He came in with a creatinine of 1.3 and dropped down to 0.8 and the patient is currently on IV heparin. Echocardiogram was also done and the patient has impairment of the LV function and the patient's left ventricular ejection fraction was estimated to be at 35 to 40%. He has impairment of LV function along with mild pulm hypertension. No significant valvular abnormalities. I also reviewed the CT of the chest that showed no evidence of any pulmonary embolism. There is minimal dependent groundglass changes/atelectasis and a CAT scan of the abdomen and pelvis was also completed today that showed similar findings in the lung bases without any acute intra-abdominal abnormalities. The patient is scheduled to undergo a cardiac catheterization in a.m. Currently, hemodynamically stable, pulse ox is 98% on room air oxygen. The white cell count is at 14.4 with a hemoglobin 11.6 and a platelet count of 118. Electrolytes are normal. Renal function is normal. LDL cholesterol is at 43. Antibiotics can be discontinued. Continue IV fluids. Cardiac catheterization in a.m. Cannot completely rule out the possibility of mild pericarditis underlying his symptoms. Healthcare Economics Consultant on the case. Time with Patient: Greater than 30
[2024-04-26 08:03] LABS: Basophils % (A) 0 %; Eosinophils % (A) 0 %; HGB 11.6 gm/dL (13.0-17.5); Hypochromasia Slight; Lymphocytes # (A) 1.1 k/uL (1.0-4.8); Lymphocytes % (A) 7 %; MCH 29.7 pg (25.0-35.0); MCHC 32.1 g/dL (31.0-37.0); MCV 92.5 fL (80.0-100.0); Mean Platelet Volume 7.9; Monocytes # (A) 0.5 k/uL (0-1.0); Monocytes % (A) 3 %; Neutrophils # (A) 12.7 k/uL (1.3-7.7); Neutrophils % (A) 88 %; Platelet Count 118 k/uL (150-450); RBC 3.89 m/uL (4.30-5.90); RDW 13.2 % (11.5-15.5); WBC 14.4 k/uL (3.8-10.6)
[2024-04-26] MEDS: ASPIRIN 81 MG PO SCH (08:17)
[2024-04-26 08:38] LABS: ALT 64 U/L (4-49); AST 70 U/L (17-59); African American GFR (CKD) >90 (>60 ml/min/1.73 sqM); Albumin 2.8 g/dL (3.5-5.0); Alkaline Phosphatase 88 U/L (38-126); Anion Gap 5 mmol/L; Blood Urea Nitrogen 17 mg/dL (9-20); Calcium 7.8 mg/dL (8.4-10.2); Carbon Dioxide 23 mmol/L (22-30); Chloride 109 mmol/L (98-107); Glucose 103 mg/dL (74-99); Non-African American GFR(CKD) >90 (>60 ml/min/1.73 sqM); Potassium 4.1 mmol/L (3.5-5.1); Sodium 137 mmol/L (137-145); Total Bilirubin 1.2 mg/dL (0.2-1.3); Total Protein 5.1 g/dL (6.3-8.2)
[2024-04-26] MEDS ORDERED: ASPIRIN 325 MG TAB PO SCH (09:00)
[2024-04-26 10:54] LABS: Chol/HDL Ratio 2.92 Ratio
[2024-04-26 11:06] LABS: LDL Cholesterol,Calculated 43.5 mg/dL (0.0-131.0)
[2024-04-26] MEDS ORDERED: IOPAMIDOL CONTRAST (ORAL USE) VIAL PO PRN (11:37)
[2024-04-26] MEDS ORDERED: NITROGLYCERIN SL TABS 0.4 MG TAB SUBLINGUAL PRN (12:11)
--- NOTE | 2024-04-26 12:11 | P.PN ---
Subjective HISTORY OF PRESENT ILLNESS: This is a 48-year-old male with a past medical history significant for hypertension, obesity, and anxiety. 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 We have been asked to see the patient in consultation for elevated troponins. Patient examined at the bedside in the emergency room. Patient states this morning he had a panic attack. He states shortly after this he began to have chest pain in the middle of his chest that felt like a stabbing sensation. He states the pain was in the middle of his chest and also on the right side of his chest. He states the pain lasted for about 15 minutes and then subsided. He states that he was not doing anything exertionally related at that time. He denies having any previous episodes of chest pain in the past. The patient does report that he has been feeling ill over the past week. He states that he went to his PCP office last Thursday and was diagnosed with an upper respiratory infection and was prescribed steroids and antibiotics. He states that he was starting to feel little bit better until this weekend when he started to feel worse again. He does report having a fever at home. According to EMS he had 101.0 temperature and route to the hospital. He continues to have a low-grade fever of 99.9. Patient is also hypotensive with a systolic blood pressure in the 80s90s. DIAGNOSTICS: - EKG reveals sinus tachycardia with T wave inversions inferiorly. - Chest xray negative for acute process. - Chest CTA: Negative for pulmonary embolism. Minimal dependent groundglass opacity/atelectasis. Correlate for possible atypical pneumonia. - Laboratory data: WBC 26.3. Hemoglobin 14.1. Platelet count 171. Sodium 138. Potassium 3.2. BUN 27. Creatinine 1.49. Lactic acid 2.7. Troponin 1.310. - Current home cardiac medications include lisinopril 20 mg daily and amlodipine 5 mg daily - No previous echocardiogram, stress test, or cardiac catheterization available in EMR for review 04/26/2024 Patient examined this morning in the emergency room. Patient's is at the bedside. Patient states he feels weak this morning. He states he has been sneezing and coughing a lot. He denies shortness of breath. He denies any chest pain at the time of examination. He remains on IV heparin. Troponins resulted at 1.310. 1.170. 0.859. 0.804. Blood pressures this morning remain marginal. PHYSICAL EXAM: VITAL SIGNS: Reviewed. GENERAL: Well-developed in no acute distress. HEENT: Head is normocephalic. Pupils are equal, round. Sclerae anicteric. Mucous membranes of the mouth are moist. Neck supple. No JVD or thyromegaly LUNGS: Respirations even and unlabored. Lungs with fine bilateral crackles HEART: Regular rate and rhythm. S1 and S2 heard. ABDOMEN: Soft. Nondistended. Nontender. EXTREMITIES: Normal range of motion. No clubbing or cyanosis. Peripheral pulses intact. No lower extremity edema NEUROLOGIC: Awake and alert. Oriented x 3. ASSESSMENT: Elevated troponins, Type I versus type II SD Recent upper respiratory infection Sepsis with leukocytosis, fever, and hypotension Acute kidney injury, resolved Elevated D-dimer, CTA negative for pulmonary embolism History of hypertension PLAN: 2D echo pending. Await results. Continue IV fluids Continue to monitor blood pressure. Continue to hold home antihypertensive medications. Continue IV heparin N.p.o. at midnight Patient to undergo cardiac catheterization tomorrow with Dr. Love Further recommendations pending patient course Nurse practitioner note has been reviewed by physician. Signing provider agrees with the documented findings, assessment, and plan of care documented by ROLL GRINDER as a scribe. Objective - Vital Signs Vital signs: Vital Signs Temp 97.6 F 04/25/24 20:26 Pulse 68 04/26/24 11:05 Resp 16 04/26/24 11:05 BP 105/61 04/26/24 11:05 Pulse Ox 99 04/26/24 11:05 FiO2 Intake & Output 04/25/24 04/26/24 04/26/24 18:59 06:59 18:59 Intake Total 197.167 Balance 197.167 Weight 93.894 kg Intake: Intake, IV Titration 197.167 Amount Heparin Sod,Pork in 0.45% 197.167 NaCl 25,000 unit In 0.45 % NaCl 1 250ml.bag @ 10. 65 UNITS/KG/HR 10 mls/hr IV .Q24H [facility] Rx#: [id number] - Labs CBC & Chem 7: 04/26/24 07:58 04/26/24 07:30 Labs: Abnormal Lab Results - Last 24 Hours (Table) 04/25/24 04/25/24 04/25/24 Range/Units 13:08 16:11 16:11 WBC (3.8-10.6) k/uL RBC (4.30-5.90) m/uL Hgb (13.0-17.5) gm/dL Hct (39.0-53.0) % Plt Count (150-450) k/uL Neutrophils # (1.3-7.7) k/uL APTT (22.0-30.0) sec Chloride (98-107) mmol/L Glucose (74-99) mg/dL Plasma Lactic Acid Marv 3.0 H* (0.7-2.0) mmol/L Calcium (8.4-10.2) mg/dL AST (17-59) U/L ALT (4-49) U/L Troponin I 1.170 H* 0.859 H* (0.000-0.034) ng/mL Total Protein (6.3-8.2) g/dL Albumin (3.5-5.0) g/dL HDL Cholesterol (40.00-60.00) mg/dL Procalcitonin (0.02-0.50) ng/mL Ur Specific [place] (1.001-1.035) Urine Protein (Negative) Urine Ketones (Negative) Urine Blood (Negative) Ur Leukocyte Esterase (Negative) Urine RBC (0-5) /hpf Urine WBC (0-5) /hpf Urine Bacteria (None) /hpf Urine Mucus (None) /hpf 04/25/24 04/25/24 04/25/24 Range/Units 18:20 19:19 19:19 WBC (3.8-10.6) k/uL RBC (4.30-5.90) m/uL Hgb (13.0-17.5) gm/dL Hct (39.0-53.0) % Plt Count (150-450) k/uL Neutrophils # (1.3-7.7) k/uL APTT (22.0-30.0) sec Chloride (98-107) mmol/L Glucose (74-99) mg/dL Plasma Lactic Acid Marv 2.5 H* (0.7-2.0) mmol/L Calcium (8.4-10.2) mg/dL AST (17-59) U/L ALT (4-49) U/L Troponin I 0.804 H* (0.000-0.034) ng/mL Total Protein (6.3-8.2) g/dL Albumin (3.5-5.0) g/dL HDL Cholesterol (40.00-60.00) mg/dL Procalcitonin (0.02-0.50) ng/mL Ur Specific [place] >1.050 H (1.001-1.035) Urine Protein 1+ H (Negative) Urine Ketones Trace H (Negative) Urine Blood Moderate H (Negative) Ur Leukocyte Esterase Moderate H (Negative) Urine RBC 14 H (0-5) /hpf Urine WBC 33 H (0-5) /hpf Urine Bacteria Rare H (None) /hpf Urine Mucus Rare H (None) /hpf 04/25/24 04/26/24 04/26/24 Range/Units 21:11 07:30 07:58 WBC 14.4 H (3.8-10.6) k/uL RBC 3.89 L (4.30-5.90) m/uL Hgb 11.6 L (13.0-17.5) gm/dL Hct 36.0 L (39.0-53.0) % Plt Count 118 L (150-450) k/uL Neutrophils # 12.7 H (1.3-7.7) k/uL APTT 58.4 H (22.0-30.0) sec Chloride 109 H (98-107) mmol/L Glucose 103 H (74-99) mg/dL Plasma Lactic Acid Marv (0.7-2.0) mmol/L Calcium 7.8 L (8.4-10.2) mg/dL AST 70 H (17-59) U/L ALT 64 H (4-49) U/L Troponin I (0.000-0.034) ng/mL Total Protein 5.1 L (6.3-8.2) g/dL Albumin 2.8 L (3.5-5.0) g/dL HDL Cholesterol (40.00-60.00) mg/dL Procalcitonin (0.02-0.50) ng/mL Ur Specific [place] (1.001-1.035) Urine Protein (Negative) Urine Ketones (Negative) Urine Blood (Negative) Ur Leukocyte Esterase (Negative) Urine RBC (0-5) /hpf Urine WBC (0-5) /hpf Urine Bacteria (None) /hpf Urine Mucus (None) /hpf 04/26/24 04/26/24 04/26/24 Range/Units 07:58 07:58 07:58 WBC (3.8-10.6) k/uL RBC (4.30-5.90) m/uL Hgb (13.0-17.5) gm/dL Hct (39.0-53.0) % Plt Count (150-450) k/uL Neutrophils # (1.3-7.7) k/uL APTT 50.2 H (22.0-30.0) sec Chloride (98-107) mmol/L Glucose (74-99) mg/dL Plasma Lactic Acid Marv (0.7-2.0) mmol/L Calcium (8.4-10.2) mg/dL AST (17-59) U/L ALT (4-49) U/L Troponin I (0.000-0.034) ng/mL Total Protein (6.3-8.2) g/dL Albumin (3.5-5.0) g/dL HDL Cholesterol 34.30 L (40.00-60.00) mg/dL Procalcitonin 28.90 H (0.02-0.50) ng/mL Ur Specific [place] (1.001-1.035) Urine Protein (Negative) Urine Ketones (Negative) Urine Blood (Negative) Ur Leukocyte Esterase (Negative) Urine RBC (0-5) /hpf Urine WBC (0-5) /hpf Urine Bacteria (None) /hpf Urine Mucus (None) /hpf
--- NOTE | 2024-04-26 13:11 | CA ---
Transthoracic Echo Report Name: Ulises Jacobson Age: 48 Gender: M : 1975 Exam Date: 04/25/2024 14:50 Exam Location: [place] [facility] Ht (in): 68 Wt (lb): 207 Ordering Physician: Sarahi Muhammad Attending/Referring Phys: [id number], [employer] Curator Mamie Khalil RDCS Procedure CPT: Indications: CP, elevated trops Cardiac Hx: Technical Quality: Technically difficult study Contrast 1: Definity Total Dose (mL): 3 Contrast 2: Total Dose (mL): MEASUREMENTS (Male / Female) Normal Values 2D ECHO LV Diastolic Diameter PLAX 4.8 cm 4.2 - 5.9 / 3.9 - 5.3 cm LV Systolic Diameter PLAX 3.8 cm IVS Diastolic Thickness 0.8 cm 0.6 - 1.0 / 0.6 - 0.9 cm LVPW Diastolic Thickness 0.8 cm 0.6 - 1.0 / 0.6 - 0.9 cm LV Relative Wall Thickness 0.3 LVOT Diameter 2.1 cm LV Diastolic Volume MOD 4C 98.1 cm??? LV Systolic Volume MOD 4C 52.1 cm??? LV Ejection Fraction MOD 4C 46.9 % LV Cardiac Index MOD 4C 1772.6 cm???/min???m??? LV Diastolic Length 4C 8.3 cm LV Systolic Length 4C 7.4 cm LA Volume 48.8 cm??? 18 - 58 / 22 - 52 cm??? LA Volume Index 22.7 cm???/m??? 16 - 28 cm???/m??? DOPPLER AV Peak Velocity 115.4 cm/s AV Peak Gradient 5.3 mmHg AV Mean Velocity 85.9 cm/s AV Mean Gradient 3.2 mmHg AV Velocity Time Integral 20.9 cm LVOT Peak Velocity 94.0 cm/s LVOT Peak Gradient 3.5 mmHg LVOT Velocity Time Integral 15.8 cm LVOT Stroke Volume 57.0 cm??? LVOT Stroke Volume Index 27.5 ml/m??? LVOT Cardiac Index 2197.4 cm???/min???m??? AV Area Cont Eq vti 2.7 cm??? AV Area Cont Eq pk 2.9 cm??? Mitral E Point Velocity 44.7 cm/s Mitral A Point Velocity 33.9 cm/s Mitral E to A Ratio 1.3 MV Deceleration Time 141.3 ms TR Peak Velocity 239.6 cm/s TR Peak Gradient 23.0 mmHg Right Atrial Pressure 20.0 mmHg Pulmonary Artery Systolic Pressu 43.0 mmHg Right Ventricular Systolic Press 43.0 mmHg PV Peak Velocity 52.3 cm/s PV Peak Gradient 1.1 mmHg FINDINGS Left Ventricle Left ventricular ejection fraction is estimated at 35-40 %. Left ventricular cavity size normal. Left ventricular wall thickness normal. Global left ventricular hypokinesis with regional variability. Right Ventricle Right ventricle not well visualized. Moderately reduced right ventricular global systolic function. Mild pulmonary hypertension. Right Atrium Normal right atrial size. Left Atrium Normal left atrial size. Mitral Valve Structurally normal mitral valve. No mitral stenosis, regurgitation or prolapse. Aortic Valve Trileaflet aortic valve. Aortic valve sclerosis. No aortic valve stenosis or regurgitation. Tricuspid Valve Structurally normal tricuspid valve. No tricuspid stenosis. Mild tricuspid regurgitation. Pulmonic Valve Structurally normal pulmonic valve. No pulmonic stenosis. No pulmonic regurgitation. Pericardium No pericardial effusion. Aorta Normal size aortic root and proximal ascending aorta. CONCLUSIONS Impaired LV function with EF between 35 to 40% Technically difficult study for interpretation and Definity was used Poorly visualized right ventricle Mild pulmonary hypertension Previewed by: Dr. Gil Laurent MD (Electronically Signed) Final Date: 26 April 2024 13:10
--- NOTE | 2024-04-26 13:55 | P.PN ---
Subjective Progress Note Date: 04/26/24 48-year-old man with PMH of autism panic attacks, had a panic attack earlier this morning with associated sharp chest pain, shortness of breath and dizziness. He describes the chest pain as being a sharp pain that is centrally located without radiation. He notes the pain having been 910/10 in intensity. He notes that nothing alleviates the pain and even presently when exerting himself in the bed he notes some centrally located chest pain. Additionally, he endorses 2-day history of elevated temperature, with Tmax being 101 F, and "not feeling well". He states that he had been feeling this way dating back more than a week ago, at that time he went to [facility] and was prescribed amoxicillin and prednisone and he began to feel better. However, he notes that this past weekend he began feeling the same way he had been before, with increased fatigue and fevers. 04/26/24 - Patient seen and examined at bedside this morning, remaining in the emergency department, patient's at bedside as well. No acute events overnight. He denies any shortness of breath or chest pain at time examination. Blood pressure continues to be marginal, 105/61, and improvement from yesterday afternoon. Continues to have good oxygen saturation on room air. REVIEW OF SYSTEMS: Pertinent positives and negatives noted in HPI. Physical Exam: General: nontoxic, in some distress/discomfort Derm: warm, dry, intact Head: atraumatic, normocephalic, symmetric Eyes: EOMI, anicteric sclera Mouth: no lip lesion, mucus membranes moist Cardiovascular: S1 S2 reg, no murmur, rubs, or gallops Lungs: CTA bilateral, no rales, no accessory muscle use Abdominal: soft, non-tender to palpataion, no appreciable organomegaly Extremities: no gross muscle atrophy, no edema, no contractures Neuro: Alert, Oriented, CNII-XII grossly intact, gait normal Psych: well appearing, appropriate affect Data Received Today: Labs: WBCs 14.4, hemoglobin 11.6 hematocrit 36.0, platelet 118; sodium 03/09/1937, potassium 4.1, chloride 109, bicarb 23, BUN 70, creatinine 0.75, calcium 7.8, total bilirubin 1.2, AST 70, ALT 64, alkaline phosphatase 88; total cholesterol 100, LDL 43.5, VLDL 22.2, HDL 34.3, triglycerides 111; procalcitonin 28.9 Imagining: Liver US showed hepatomegaly Assessment and plan 48-year-old man with PMH of autism panic attacks, had a panic attack earlier this morning with associated sharp chest pain, shortness of breath and dizziness. He describes the chest pain as being a sharp pain that is centrally located without radiation. He notes the pain having been 910/10 in intensity. Additionally, he endorses 2-day history of elevated temperature, with Tmax being 101 F, and "not feeling well". #Acute NSTEMI, type I versus type II #History of panic attacks -Trend troponins: Initial troponin 1.310 => 1.170 => 0.859 => 0.804 -Continue with aspirin 81 mg daily, continue Lipitor 40 mg nightly and continue on heparin drip -Cardiac monitoring -Supplemental oxygen as needed -Cardiology consulted -N.p.o. at midnight; patient undergo cardiac catheterization with Dr. Love tomorrow -Echocardiogram ordered, awaiting results -Continue to hold home antihypertensives #Severe sepsis secondary to likely atypical pneumonia #Leukocytosis of unknown origin with neutrophilic predominance, atypical pneumonia v dehydration #Anion gap metabolic acidosis #Acute kidney injury, resolved #Hypokalemia, resolved #Lactic acidosis, resolved #Transaminitis #Elevated D-dimer -Continue on Zithromax IV 500 mg (day 2) and Rocephin IV 2 g daily (day 2) -Liver US showed hepatomegaly -CT abdomen pelvis with contrast, and with oral contrast currently pending -Blood culture pending -Sputum culture pending -Legionella pending -Procalcitonin 20.9 -UA showed 1+ protein, trace ketones, moderate blood, moderate leukocyte esterase, 14 urine RBCs, 33 urine WBCs, rare urine bacteria and rare urine mucus -LR 150 cc/h -Continue monitor CBC and CMP DVT ppx: On heparin drip Code status: Full code F: LR 150 cc/h E: Replete as needed N: Heart healthy, n.p.o. at midnight A: Ambulatory Anticipated discharge place: Pending clinical course Anticipated discharge time: Pending clinical course Dictation was produced using [employer] dictation software. please excuse any grammatical, word or spelling errors. I have seen and evaluated the patient today. Discussed with the resident and agree with the residents finding and plan as documented in the resident's note. Changes highlighted in blue font. Objective - Vital Signs Vital signs: Vital Signs Temp 97.6 F 04/25/24 20:26 Pulse 68 04/26/24 11:05 Resp 16 04/26/24 11:05 BP 105/61 04/26/24 11:05 Pulse Ox 99 04/26/24 11:05 FiO2 Intake & Output 04/25/24 04/26/24 04/26/24 18:59 06:59 18:59 Intake Total 197.167 Balance 197.167 Weight 93.894 kg Intake: Intake, IV Titration 197.167 Amount Heparin Sod,Pork in 0.45% 197.167 NaCl 25,000 unit In 0.45 % NaCl 1 250ml.bag @ 10. 65 UNITS/KG/HR 10 mls/hr IV .Q24H [facility] Rx#: [id number] - Labs CBC & Chem 7: 04/26/24 07:58 04/26/24 07:30 Labs: Abnormal Lab Results - Last 24 Hours (Table) 04/25/24 04/25/24 04/25/24 Range/Units 13:08 16:11 16:11 WBC (3.8-10.6) k/uL RBC (4.30-5.90) m/uL Hgb (13.0-17.5) gm/dL Hct (39.0-53.0) % Plt Count (150-450) k/uL Neutrophils # (1.3-7.7) k/uL APTT (22.0-30.0) sec Chloride (98-107) mmol/L Glucose (74-99) mg/dL Plasma Lactic Acid Marv 3.0 H* (0.7-2.0) mmol/L Calcium (8.4-10.2) mg/dL AST (17-59) U/L ALT (4-49) U/L Troponin I 1.170 H* 0.859 H* (0.000-0.034) ng/mL Total Protein (6.3-8.2) g/dL Albumin (3.5-5.0) g/dL HDL Cholesterol (40.00-60.00) mg/dL Procalcitonin (0.02-0.50) ng/mL Ur Specific [place] (1.001-1.035) Urine Protein (Negative) Urine Ketones (Negative) Urine Blood (Negative) Ur Leukocyte Esterase (Negative) Urine RBC (0-5) /hpf Urine WBC (0-5) /hpf Urine Bacteria (None) /hpf Urine Mucus (None) /hpf 04/25/24 04/25/24 04/25/24 Range/Units 18:20 19:19 19:19 WBC (3.8-10.6) k/uL RBC (4.30-5.90) m/uL Hgb (13.0-17.5) gm/dL Hct (39.0-53.0) % Plt Count (150-450) k/uL Neutrophils # (1.3-7.7) k/uL APTT (22.0-30.0) sec Chloride (98-107) mmol/L Glucose (74-99) mg/dL Plasma Lactic Acid Marv 2.5 H* (0.7-2.0) mmol/L Calcium (8.4-10.2) mg/dL AST (17-59) U/L ALT (4-49) U/L Troponin I 0.804 H* (0.000-0.034) ng/mL Total Protein (6.3-8.2) g/dL Albumin (3.5-5.0) g/dL HDL Cholesterol (40.00-60.00) mg/dL Procalcitonin (0.02-0.50) ng/mL Ur Specific [place] >1.050 H (1.001-1.035) Urine Protein 1+ H (Negative) Urine Ketones Trace H (Negative) Urine Blood Moderate H (Negative) Ur Leukocyte Esterase Moderate H (Negative) Urine RBC 14 H (0-5) /hpf Urine WBC 33 H (0-5) /hpf Urine Bacteria Rare H (None) /hpf Urine Mucus Rare H (None) /hpf 04/25/24 04/26/24 04/26/24 Range/Units 21:11 07:30 07:58 WBC 14.4 H (3.8-10.6) k/uL RBC 3.89 L (4.30-5.90) m/uL Hgb 11.6 L (13.0-17.5) gm/dL Hct 36.0 L (39.0-53.0) % Plt Count 118 L (150-450) k/uL Neutrophils # 12.7 H (1.3-7.7) k/uL APTT 58.4 H (22.0-30.0) sec Chloride 109 H (98-107) mmol/L Glucose 103 H (74-99) mg/dL Plasma Lactic Acid Marv (0.7-2.0) mmol/L Calcium 7.8 L (8.4-10.2) mg/dL AST 70 H (17-59) U/L ALT 64 H (4-49) U/L Troponin I (0.000-0.034) ng/mL Total Protein 5.1 L (6.3-8.2) g/dL Albumin 2.8 L (3.5-5.0) g/dL HDL Cholesterol (40.00-60.00) mg/dL Procalcitonin (0.02-0.50) ng/mL Ur Specific [place] (1.001-1.035) Urine Protein (Negative) Urine Ketones (Negative) Urine Blood (Negative) Ur Leukocyte Esterase (Negative) Urine RBC (0-5) /hpf Urine WBC (0-5) /hpf Urine Bacteria (None) /hpf Urine Mucus (None) /hpf 04/26/24 04/26/24 04/26/24 Range/Units 07:58 07:58 07:58 WBC (3.8-10.6) k/uL RBC (4.30-5.90) m/uL Hgb (13.0-17.5) gm/dL Hct (39.0-53.0) % Plt Count (150-450) k/uL Neutrophils # (1.3-7.7) k/uL APTT 50.2 H (22.0-30.0) sec Chloride (98-107) mmol/L Glucose (74-99) mg/dL Plasma Lactic Acid Marv (0.7-2.0) mmol/L Calcium (8.4-10.2) mg/dL AST (17-59) U/L ALT (4-49) U/L Troponin I (0.000-0.034) ng/mL Total Protein (6.3-8.2) g/dL Albumin (3.5-5.0) g/dL HDL Cholesterol 34.30 L (40.00-60.00) mg/dL Procalcitonin 28.90 H (0.02-0.50) ng/mL Ur Specific [place] (1.001-1.035) Urine Protein (Negative) Urine Ketones (Negative) Urine Blood (Negative) Ur Leukocyte Esterase (Negative) Urine RBC (0-5) /hpf Urine WBC (0-5) /hpf Urine Bacteria (None) /hpf Urine Mucus (None) /hpf
--- NOTE | 2024-04-26 14:07 | CT ---
EXAMINATION TYPE: CT abdomen pelvis w con DATE OF EXAM: 04/26/2024 COMPARISON: None CLINICAL INDICATION: Male, 48 years old with history of severe sepsis; PHH, severe sepsis TECHNIQUE: Performed with Oral Contrast and with IV Contrast, patient injected with 100 mL of Isovue 300. CT DLP: 1419.[address] CTDI: mGy Automated exposure control for dose reduction was used. FINDINGS: There is mild interstitial opacity in the posterior lung bases with tiny pleural effusions. Acute inf ectious process not excluded and short-term follow-up is recommended.. The gallbladder is normal without distention, wall thickening, pericholecystic fluid or gallstones. T here is no biliary ductal dilatation. There is no focal mass or organomegaly involving the liver, pancreas, spleen or adrenal glands. There is no solid renal mass or hydronephrosis and there is homogeneous contrast enhancement of the r enal parenchyma. The caliber the abdominal aorta is normal is no retroperitoneal adenopathy or hemorr robyn. The bowel loops are normal in caliber and there is no evidence of dilatation or obstruction. No infla mmatory changes are identified in the bowel wall or mesentery. There is no free intraperitoneal air or fluid. No pelvic mass, free fluid, abscess or adenopathy. There are no focal destructive osseous lesions. IMPRESSION: 1. No acute changes within the abdomen or pelvis. 2. Mild reticular opacities and tiny effusions in the lung bases. Findings could represent a chronic or acute infectious process and short-term follow-up is recommended [facility] Eliezer Vegas, , 04/26/2024 2:05 PM
[2024-04-26 15:53] LABS: Glucose,Whole Blood 88 mg/dL (70-110)
[2024-04-26] MEDS: ACETAMINOPHEN TAB 325 MG TAB PO PRN (21:45)
[2024-04-26] MEDS: SODIUM CHLORIDE 0.9% 1,000 ML in EMPTY BAG 1 BAG IV SCH (22:10)
[2024-04-27] MEDS: ATORVASTATIN 80 MG TAB PO ONE (05:59)
[2024-04-27] MEDS: ASPIRIN 325 MG TAB PO ONE (05:59)
[2024-04-27] MEDS ORDERED: HEPARIN SODIUM,PORCINE (1 ML) 2,500 UNIT in SODIUM CHLORIDE 0.9% 250 ML IRRIGATION PRN (07:00)
[2024-04-27] MEDS ORDERED: HEPARIN SODIUM,PORCINE 10,000 UNIT in SODIUM CHLORIDE 0.9% 1,000 ML IRRIGATION PRN (07:00)
[2024-04-27 08:21] LABS: Basophils % (A) 0 %; Eosinophils % (A) 0 %; HCT 34.1 % (39.0-53.0); HGB 11.3 gm/dL (13.0-17.5); Lymphocytes # (A) 1.1 k/uL (1.0-4.8); Lymphocytes % (A) 19 %; MCH 30.1 pg (25.0-35.0); MCV 91.3 fL (80.0-100.0); Mean Platelet Volume 8.2; Monocytes # (A) 0.4 k/uL (0-1.0); Monocytes % (A) 6 %; Neutrophils # (A) 4.3 k/uL (1.3-7.7); Neutrophils % (A) 72 %; Platelet Count 115 k/uL (150-450); RBC 3.74 m/uL (4.30-5.90); RDW 13.1 % (11.5-15.5); WBC 5.9 k/uL (3.8-10.6)
[2024-04-27 08:50] LABS: ALT 59 U/L (4-49); AST 66 U/L (17-59); African American GFR (CKD) >90 (>60 ml/min/1.73 sqM); Albumin 2.8 g/dL (3.5-5.0); Alkaline Phosphatase 92 U/L (38-126); Anion Gap 8 mmol/L; Blood Urea Nitrogen 9 mg/dL (9-20); Calcium 7.9 mg/dL (8.4-10.2); Carbon Dioxide 21 mmol/L (22-30); Chloride 110 mmol/L (98-107); Glucose 102 mg/dL (74-99); Non-African American GFR(CKD) >90 (>60 ml/min/1.73 sqM); Potassium 3.8 mmol/L (3.5-5.1); Sodium 139 mmol/L (137-145); Total Bilirubin 1.1 mg/dL (0.2-1.3); Total Protein 5.2 g/dL (6.3-8.2)
--- NOTE | 2024-04-27 11:04 | P.PN ---
Subjective Progress Note Date: 04/27/24 48-year-old man with PMH of autism panic attacks, had a panic attack earlier this morning with associated sharp chest pain, shortness of breath and dizziness. He describes the chest pain as being a sharp pain that is centrally located without radiation. He notes the pain having been 910/10 in intensity. He notes that nothing alleviates the pain and even presently when exerting himself in the bed he notes some centrally located chest pain. Additionally, he endorses 2-day history of elevated temperature, with Tmax being 101 F, and "not feeling well". He states that he had been feeling this way dating back more than a week ago, at that time he went to [facility] and was prescribed amoxicillin and prednisone and he began to feel better. However, he notes that this past weekend he began feeling the same way he had been before, with increased fatigue and fevers. 04/26/24 - Patient seen and examined at bedside this morning, remaining in the emergency department, patient's at bedside as well. No acute events overnight. He denies any shortness of breath or chest pain at time examination. Blood pressure continues to be marginal, 105/61, and improvement from yesterday afternoon. Continues to have good oxygen saturation on room air. 04/27/24 - Patient seen and examined at bedside this morning. No acute events overnight. Preliminary blood culture positive for E. coli, with no resistance genes detected. Per the pharmacist, ceftriaxone is the appropriate treatment for the organism identified. He is to receive cardiac catheterization early this afternoon. He has no acute complaints at this time. REVIEW OF SYSTEMS: Pertinent positives and negatives noted in HPI. Physical Exam: General: nontoxic, in some distress/discomfort Derm: warm, dry, intact Head: atraumatic, normocephalic, symmetric Eyes: EOMI, anicteric sclera Mouth: no lip lesion, mucus membranes moist Cardiovascular: S1 S2 reg, no murmur, rubs, or gallops Lungs: CTA bilateral, no rales, no accessory muscle use Abdominal: soft, non-tender to palpataion, no appreciable organomegaly Extremities: no gross muscle atrophy, no edema, no contractures Neuro: Alert, Oriented, CNII-XII grossly intact, gait normal Psych: well appearing, appropriate affect Data Received Today: Labs: WBCs 5.9, hemoglobin 12.3, hematocrit 34.1, platelet 115 Imagining: Echocardiogram (04/25/2024) showed EF 35-40%, with mild pulmonary hypertension -CT abdomen pelvis with no acute changes within the abdomen or pelvis, with mild reticular opacities and tiny effusions in the lung bases Assessment and plan 48-year-old man with PMH of autism panic attacks, had a panic attack earlier this morning with associated sharp chest pain, shortness of breath and dizziness. He describes the chest pain as being a sharp pain that is centrally located without radiation. He notes the pain having been 910/10 in intensity. Additionally, he endorses 2-day history of elevated temperature, with Tmax being 101 F, and "not feeling well". #Acute NSTEMI, type I versus type II #New onset HFrEF (echocardiogram 04/25/24 showed EF 35-40%) #History of panic attacks -Trend troponins: Initial troponin 1.310 => 1.170 => 0.859 => 0.804 -Continue with aspirin 81 mg daily, continue Lipitor 40 mg nightly and continue on heparin drip -Cardiac monitoring -Supplemental oxygen as needed -Cardiology consulted -Undergoing cardiac catheterization today (04/27/2024) -Echocardiogram (04/25/2024) showed EF 35-40%, with mild pulmonary hypertension -Continue to hold home antihypertensives #Severe sepsis secondary to likely atypical pneumonia #Leukocytosis of unknown origin with neutrophilic predominance, atypical pneumonia v dehydration #Anion gap metabolic acidosis #Acute kidney injury, resolved #Hypokalemia, resolved #Lactic acidosis, resolved #Transaminitis #Elevated D-dimer -Continue on Zithromax IV 500 mg (day 3) and Rocephin IV 2 g daily (day 3) -CT abdomen pelvis with contrast, and with oral contrast read and reviewed -Blood culture preliminarily positive for E. coli, without resistance gene detected -Sputum culture pending -Legionella pending -0.9% 75 cc/h -Continue monitor CBC and CMP DVT ppx: On heparin drip Code status: Full code F: 0.9% 75 cc/h E: Replete as needed N: N.p.o. in preparation for catheterization A: Ambulatory Anticipated discharge place: Pending clinical course Anticipated discharge time: Pending clinical course Dictation was produced using IQMax[employer] software. please excuse any grammatical, word or spelling errors. I have seen and evaluated the patient today. Discussed with the resident and agree with the residents finding and plan as documented in the resident's note. Changes highlighted in blue font. Objective - Vital Signs Vital signs: Vital Signs Temp 98.3 F 04/27/24 08:00 Pulse 86 04/27/24 08:00 Resp 18 04/27/24 08:00 BP 114/73 04/27/24 08:00 Pulse Ox 96 04/27/24 08:00 FiO2 Intake & Output 04/26/24 04/27/24 04/27/24 18:59 06:59 18:59 Intake Total 197.167 Balance 197.167 Weight 95.8 kg Intake: Intake, IV Titration 197.167 Amount Heparin Sod,Pork in 0.45% 197.167 NaCl 25,000 unit In 0.45 % NaCl 1 250ml.bag @ 10. 65 UNITS/KG/HR 10 mls/hr IV .Q24H [facility] Rx#: [id number] Other: Voiding Method Toilet # Voids 1 - Labs CBC & Chem 7: 04/27/24 07:10 04/27/24 07:10 Labs: Abnormal Lab Results - Last 24 Hours (Table) 04/26/24 04/26/24 04/27/24 Range/Units 07:58 07:58 07:10 RBC 3.74 L (4.30-5.90) m/uL Hgb 11.3 L (13.0-17.5) gm/dL Hct 34.1 L (39.0-53.0) % Plt Count 115 L (150-450) k/uL HDL Cholesterol 34.30 L (40.00-60.00) mg/dL Procalcitonin 28.90 H (0.02-0.50) ng/mL Microbiology - Last 24 Hours (Table) 04/25/24 11:10 Blood Culture Gram Stain - Preliminary Blood Blood Culture - Preliminary Molecular ID 04/25/24 18:20 Urine Culture - Final Urine,Voided
[2024-04-27] MEDS: fentaNYL (PF) 50 MCG/ML 2 ML AMP IVP ONE (11:52)
[2024-04-27] MEDS: LIDOCAINE 1% INJ 10MG/ML (20 ML MDV) SQ ONE (11:53)
[2024-04-27] MEDS: MIDAZOLAM 2 MG/2 ML VIAL IVP ONE ×2 (11:55→12:12)
[2024-04-27] MEDS: VERAPAMIL SYRINGE (5 MG/10 ML) INTRAARTER ONE (12:03)
[2024-04-27] MEDS: HEPARIN SODIUM 1,000 UN/ML (10ML VL) IVP ONE (12:05)
[2024-04-27] MEDS: HEPARIN SODIUM,PORCINE (1 ML) 2,500 UNIT in SODIUM CHLORIDE 0.9% 250 ML IRRIGATION ONE (12:06)
[2024-04-27] MEDS: IV FLUID CONTINUATION 350 ML IV ONE (12:06)
[2024-04-27] MEDS: HEPARIN SODIUM,PORCINE 10,000 UNIT in SODIUM CHLORIDE 0.9% 1,000 ML IRRIGATION ONE (12:06)
[2024-04-27] MEDS: IOPAMIDOL-370 100ML BTL INJ ONE (12:22)
[2024-04-27] MEDS ORDERED: RX INFO: IV CONTRAST WAS GIVEN 1 EACH MISC MISCELLANE PRN (12:33)
--- NOTE | 2024-04-27 12:39 | P.CARDCATH ---
Date of Procedure: 04/27/24 Description of Procedure: Cardiac Catheterization: The patient is a 48-year-old male with a history of hypertension who presented with symptoms of chest comfort, fever and not feeling well had troponin elevation and his echocardiogram showed evidence of cardiomyopathy of unclear etiology. Recommendations were made regarding cardiac catheterization, the risks and the complications were discussed with the patient who is in full understanding and agreement. 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 Using Xylocaine Anesthesia and modified Seldinger technique, a 6-Zambian sheath was introduced in the right radial artery . Subsequently, selective coronary angiography was performed using a 5-[place]ambian 3.5 bend Livier catheter. Multiple views of the coronary artery including hemiaxial views were obtained. The 5 [place]ian pigtail catheter was used to cross the aortic valve and LVEDP was calculated. A 30 degree WHITAKER view of the left ventricle was performed. Following that, catheter and sheath were removed. Hemostasis was obtained with deployment of vascular band . There was no immediate complication. Patient was returned to room in stable condition. Of note, the patient received a total of 5000 units of intravenous heparin as well as intra-arterial verapamil. Findings: Left main: This is a large size vessel, bifurcating into LAD and left circumflex, left main has no obstructive disease LAD: This is a large size vessel, reaching to the apex, giving rise to a diagonal branch of moderate caliber the LAD and its branches have no obstructive disease Left circumflex: This is a large nondominant vessel giving rise to a very proximal obtuse marginal branch the second obtuse marginal branch is smaller caliber. The left circumflex and its branches have no obstructive disease RCA: This is a large dominant vessel, bifurcating distally to PDA and PLV, the right coronary artery and its branches have no obstructive disease Left Ventriculogram: Performed in the 30 degree WHITAKER view revealed normal left ventricular size and systolic function with ejection fraction of 50 to 55% Hemodynamics: There was no gradient across aortic valve, LVEDP was 14-16 mmHg Conclusion: 1. Normal coronary arteries 2. Preserved left ventricular systolic function 3. Normal LVEDP Recommendations: I have recommended to continue medical therapy, the patient may have had an episode of transient cardiomyopathy related to his infections with no evidence of obstructive disease. The findings and the recommendations were discussed with the patient and the family and they were in full understanding and agreement. Duration of sedation is 30 minutes.
[2024-04-27] MEDS: SODIUM CHLORIDE 0.9% 1,000 ML IV SCH (14:07)
--- NOTE | 2024-04-27 18:47 | P.PN ---
Subjective Progress Note Date: 04/27/24 Patient is a 48-year-old male with past medical history significant for hypertension, urethral stricture with previous dilation. His primary care provider is Dr. Garvin. Patient presents emergency department yesterday afternoon complaining of substernal chest pain, diaphoresis, nausea and vomiting. Chest pain, severe, nonradiating, reported lasting 10 to 15 minutes. He did take 4 baby aspirin at home. His is at bedside, and states that he did get confused and pulled down the shower curtain at home. Patient believes he was having a panic attack. Of note, patient reportedly recently treated for URI by his PCP 1 to 2 weeks ago, given a course of amoxicillin and prednisone burst taper. States his symptoms initially improved and then worsened following completion of medications. Reportedly, having intermittent fevers, cough with occasional clear phlegm production. Denies purulent sputum, hemoptysis. Denies any abdominal pain. Denies any diarrhea. Appetite has been fair. Viral screen done at our facility negative for influenza A/B, COVID, RSV. Workup in the emergency department including a chest CTA which did not show any filling defects consistent with pulmonary embolism. Very minimal dependent groundglass opacities or atelectasis. No pleural effusions or pneumothoraces. CBC remarkable for leukocytosis with a WBC count of 26.3, hemoglobin 14.1, platelets 171. D-dimer was 7.6. CMP: Sodium 138, potassium 3.2, chloride 106, serum bicarb 15, BUN 27, creatinine 1.49, glucose 160. NT proBNP elevated at 2040. Troponins were elevated at 1.3, 1.17, and 0.8 respectively. EKG: Normal sinus rhythm, rate 100 bpm, T wave inversions in 3, aVF; no ST segment elevation or depressions. Patient was started on IV heparin per cardiology. Patient currently being evaluated in the emergency department. Resting comfortably in bed. His spouse is at bedside. Denies any further chest pain. Heparin continues per protocol. Denies heart palpitations, lightheadedness, syncopal events, orthopnea, PND, lower extremity edema. He is alert and oriented. Brain CT was done earlier and unremarkable for acute intracranial process. Did have low-grade temperature of 99.9 F. Empirically placed on antibiotics in the ED. UA remarkable for pyuria and rare bacteriuria. Blood pressure is marginal, did receive 2 L crystalloid fluid bolus in the ED. Current vital signs: Temperature 97.6 F, heart rate 70 bpm, blood pressure 87/59 mmHg, SpO2 97% on room air. 04/27/2024, seen the patient for a follow-up. The patient has improved considerably. The patient feels less short of breath. Afebrile. Hemodynamically stable and the patient is currently on room air oxygen with a 9 7% pulse ox. Meanwhile, the patient's procalcitonin level was considerably elevated at 28.9. Blood culture came back positive for E. coli and I suspect that this E. coli septicemia is related to a urinary source. The patient has had issues with urinary stricture in the past. Cardiac catheterization was also done and the patient was found to have normal coronaries, preserved LV function, normal left ventricular end-diastolic pressure. White cell count is currently down to 5.9 with a hemoglobin 11.3 and a platelet count of 115. BUN is 9 with a creatinine of 0.66 and sodium levels at 139. Hemodynamically stable. Objective - Vital Signs Vital signs: Vital Signs Temp 97.5 F L 04/27/24 12:54 Pulse 80 04/27/24 12:54 Resp 18 04/27/24 12:54 BP 125/81 04/27/24 12:54 Pulse Ox 97 04/27/24 12:54 FiO2 Intake & Output 04/26/24 04/27/24 04/27/24 18:59 06:59 18:59 Intake Total 197.167 100 Balance 197.167 100 Weight 95.8 kg Intake: IV 100 Intake, IV Titration 197.167 Amount Heparin Sod,Pork in 0.45% 197.167 NaCl 25,000 unit In 0.45 % NaCl 1 250ml.bag @ 10. 65 UNITS/KG/HR 10 mls/hr IV .Q24H [facility] Rx#: [id number] Other: Voiding Method Toilet # Voids 1 - Exam GENERAL EXAM: Alert, 48-year-old male, comfortable in no apparent distress. HEAD: Normocephalic and atraumatic EYES: Normal reaction of pupils, equal size. NOSE: Clear with pink turbinates. THROAT: No erythema or exudates. NECK: No masses, no JVD. CHEST: No chest wall deformity. LUNGS: Equal air entry with no crackles, wheeze, rhonchi or dullness. On room air. No conversational dyspnea or accessory muscle use.. CVS: S1 and S2 normal with soft grade 1 systolic murmur, regular rhythm. No other extra heart sounds ABDOMEN: No hepatosplenomegaly, active bowel sounds, no guarding or rigidity. SPINE: No scoliosis or deformity SKIN: No rashes CENTRAL NERVOUS SYSTEM: No focal deficits, tone is normal in all 4 extremities. EXTREMITIES: There is no peripheral edema, clubbing, or cyanosis. Peripheral pulses are intact. - Labs CBC & Chem 7: 04/27/24 07:10 04/27/24 07:10 Labs: Abnormal Lab Results - Last 24 Hours (Table) 04/27/24 04/27/24 Range/Units 07:10 07:10 RBC 3.74 L (4.30-5.90) m/uL Hgb 11.3 L (13.0-17.5) gm/dL Hct 34.1 L (39.0-53.0) % Plt Count 115 L (150-450) k/uL Chloride 110 H (98-107) mmol/L Carbon Dioxide 21 L (22-30) mmol/L Glucose 102 H (74-99) mg/dL Calcium 7.9 L (8.4-10.2) mg/dL AST 66 H (17-59) U/L ALT 59 H (4-49) U/L Total Protein 5.2 L (6.3-8.2) g/dL Albumin 2.8 L (3.5-5.0) g/dL Microbiology - Last 24 Hours (Table) 04/25/24 11:10 Blood Culture Gram Stain - Preliminary Blood Blood Culture - Preliminary Escherichia coli Molecular ID 04/25/24 18:20 Urine Culture - Final Urine,Voided Assessment and Plan Assessment: E. coli sepsis, likely urinary source. Currently on IV Rocephin 2 g every 24 hours. The patient has abnormal UA. The patient also has previous history of urethral stricture that has required dilatation. Will consult urology again. Acute dyspnea, chest CTA unremarkable for filling defects consistent with pulmonary embolism, very minimal bibasilar groundglass opacity disease/atelectasis. No obvious focal infiltrates or definitive pneumonia. No significant shortness of breath for now. Elevated troponins probably demand type of myocardial ischemia type II second to underlying sepsis. Cardiac catheterization was done and the coronaries are within normal limits. Left-ventricular diastolic pressure is also within normal limits. Acute leukocytosis, improving Anion gap metabolic acidosis, improved Acute kidney injury,, improved Hypokalemia, replaced History of urethral stricture with previous dilation History of hypertension Obesity, with a BMI 31.5 kg/m Plan: Continue Rocephin 2 g every 24 hours Discontinue Zithromax Cardiac catheterization results were noted Patient currently on room air oxygen White cell count is improving Renal function has normalized Clinically improving Consult urology regarding a complicated urine tract infection as the patient has previous history of ureteral stricture.
[2024-04-27] MEDS: lisinopriL 5 MG TAB PO SCH (20:27)
[2024-04-28 07:32] LABS: Basophils % (A) 0 %; Eosinophils % (A) 0 %; HCT 33.9 % (39.0-53.0); HGB 10.9 gm/dL (13.0-17.5); Lymphocytes # (A) 1.1 k/uL (1.0-4.8); Lymphocytes % (A) 17 %; MCH 29.4 pg (25.0-35.0); MCHC 32.2 g/dL (31.0-37.0); MCV 91.3 fL (80.0-100.0); Monocytes # (A) 0.3 k/uL (0-1.0); Monocytes % (A) 5 %; Neutrophils % (A) 75 %; Platelet Count 135 k/uL (150-450); RBC 3.71 m/uL (4.30-5.90); RDW 13.2 % (11.5-15.5); WBC 6.6 k/uL (3.8-10.6)
[2024-04-28 07:44] LABS: ALT 67 U/L (4-49); AST 71 U/L (17-59); African American GFR (CKD) >90 (>60 ml/min/1.73 sqM); Albumin 3.1 g/dL (3.5-5.0); Alkaline Phosphatase 129 U/L (38-126); Anion Gap 7 mmol/L; Blood Urea Nitrogen 6 mg/dL (9-20); Calcium 8.1 mg/dL (8.4-10.2); Carbon Dioxide 21 mmol/L (22-30); Chloride 106 mmol/L (98-107); Glucose 118 mg/dL (74-99); Non-African American GFR(CKD) >90 (>60 ml/min/1.73 sqM); Potassium 3.6 mmol/L (3.5-5.1); Sodium 134 mmol/L (137-145); Total Bilirubin 0.9 mg/dL (0.2-1.3); Total Protein 5.5 g/dL (6.3-8.2)
--- NOTE | 2024-04-28 13:53 | P.PN ---
Subjective HISTORY OF PRESENT ILLNESS: This is a 48-year-old male with a past medical history significant for hypertension, obesity, and anxiety. 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 We have been asked to see the patient in consultation for elevated troponins. Patient examined at the bedside in the emergency room. Patient states this morning he had a panic attack. He states shortly after this he began to have chest pain in the middle of his chest that felt like a stabbing sensation. He states the pain was in the middle of his chest and also on the right side of his chest. He states the pain lasted for about 15 minutes and then subsided. He states that he was not doing anything exertionally related at that time. He denies having any previous episodes of chest pain in the past. The patient does report that he has been feeling ill over the past week. He states that he went to his PCP office last Thursday and was diagnosed with an upper respiratory infection and was prescribed steroids and antibiotics. He states that he was starting to feel little bit better until this weekend when he started to feel worse again. He does report having a fever at home. According to EMS he had 101.0 temperature and route to the hospital. He continues to have a low-grade fever of 99.9. Patient is also hypotensive with a systolic blood pressure in the 80s90s. DIAGNOSTICS: - EKG reveals sinus tachycardia with T wave inversions inferiorly. - Chest xray negative for acute process. - Chest CTA: Negative for pulmonary embolism. Minimal dependent groundglass opacity/atelectasis. Correlate for possible atypical pneumonia. - Laboratory data: WBC 26.3. Hemoglobin 14.1. Platelet count 171. Sodium 138. Potassium 3.2. BUN 27. Creatinine 1.49. Lactic acid 2.7. Troponin 1.310. - Current home cardiac medications include lisinopril 20 mg daily and amlodipine 5 mg daily - No previous echocardiogram, stress test, or cardiac catheterization available in EMR for review 04/26/2024 Patient examined this morning in the emergency room. Patient's is at the bedside. Patient states he feels weak this morning. He states he has been sneezing and coughing a lot. He denies shortness of breath. He denies any chest pain at the time of examination. He remains on IV heparin. Troponins resulted at 1.310. 1.170. 0.859. 0.804. Blood pressures this morning remain marginal. 04/28/2024 Patient is s/p cardiac catheterization with Dr. Love revealing normal coronary arteries, normal LVEDP and preserved left ventricular systolic function. Patient seen this afternoon. Patient is sitting up in the chair. He denies any chest pain or pressure. He continues to report frequent coughing. He states that he feels tired and does not have much energy currently. Vital signs are stable. Telemetry reveals sinus mechanism PHYSICAL EXAM: VITAL SIGNS: Reviewed. GENERAL: Well-developed in no acute distress. HEENT: Head is normocephalic. Pupils are equal, round. Sclerae anicteric. Mucous membranes of the mouth are moist. Neck supple. No JVD or thyromegaly LUNGS: Respirations even and unlabored. Lungs are clear to auscultation. HEART: Regular rate and rhythm. S1 and S2 heard. ABDOMEN: Soft. Nondistended. Nontender. EXTREMITIES: Normal range of motion. No clubbing or cyanosis. Peripheral pulses intact. No lower extremity edema NEUROLOGIC: Awake and alert. Oriented x 3. ASSESSMENT: Elevated troponins, Type II NV, status post cardiac cath revealing normal coronary arteries Recent upper respiratory infection E. coli bacteremia Sepsis with leukocytosis, fever, and hypotension Acute kidney injury, resolved Elevated D-dimer, CTA negative for pulmonary embolism History of hypertension PLAN: Continue current cardiac medications Patient is currently stable for discharge from a cardiac standpoint Patient to follow-up postdischarge with Dr. Love Nurse practitioner note has been reviewed by physician. Signing provider agrees with the documented findings, assessment, and plan of care documented by NURSE TRANSPLANT as a scribe. Objective - Vital Signs Vital signs: Vital Signs Temp 97.6 F 04/28/24 08:00 Pulse 84 04/28/24 08:00 Resp 16 04/28/24 08:00 BP 147/91 04/28/24 08:00 Pulse Ox 99 04/28/24 08:00 FiO2 Intake & Output 04/27/24 04/28/24 04/28/24 18:59 06:59 18:59 Intake Total 100 540 480 Balance 100 540 480 Weight 97.6 kg Intake: IV 100 Oral 540 480 Other: Voiding Method Toilet Toilet # Voids 3 - Labs CBC & Chem 7: 04/28/24 07:12 04/28/24 07:12 Labs: Abnormal Lab Results - Last 24 Hours (Table) 04/28/24 04/28/24 Range/Units 07:12 07:12 RBC 3.71 L (4.30-5.90) m/uL Hgb 10.9 L (13.0-17.5) gm/dL Hct 33.9 L (39.0-53.0) % Plt Count 135 L (150-450) k/uL Sodium 134 L (137-145) mmol/L Carbon Dioxide 21 L (22-30) mmol/L BUN 6 L (9-20) mg/dL Glucose 118 H (74-99) mg/dL Calcium 8.1 L (8.4-10.2) mg/dL AST 71 H (17-59) U/L ALT 67 H (4-49) U/L Alkaline Phosphatase 129 H (38-126) U/L Total Protein 5.5 L (6.3-8.2) g/dL Albumin 3.1 L (3.5-5.0) g/dL Microbiology - Last 24 Hours (Table) 04/25/24 11:10 Blood Culture Gram Stain - Final Blood Blood Culture - Final Escherichia coli Molecular ID
--- NOTE | 2024-04-28 16:35 | P.PN ---
Subjective Progress Note Date: 04/28/24 48-year-old man with PMH of autism panic attacks, had a panic attack earlier this morning with associated sharp chest pain, shortness of breath and dizziness. He describes the chest pain as being a sharp pain that is centrally located without radiation. He notes the pain having been 910/10 in intensity. He notes that nothing alleviates the pain and even presently when exerting himself in the bed he notes some centrally located chest pain. Additionally, he endorses 2-day history of elevated temperature, with Tmax being 101 F, and "not feeling well". He states that he had been feeling this way dating back more than a week ago, at that time he went to [facility] and was prescribed amoxicillin and prednisone and he began to feel better. However, he notes that this past weekend he began feeling the same way he had been before, with increased fatigue and fevers. 04/26/24 - Patient seen and examined at bedside this morning, remaining in the emergency department, patient's at bedside as well. No acute events overnight. He denies any shortness of breath or chest pain at time examination. Blood pressure continues to be marginal, 105/61, and improvement from yesterday afternoon. Continues to have good oxygen saturation on room air. 04/27/24 - Patient seen and examined at bedside this morning. No acute events overnight. Preliminary blood culture positive for E. coli, with no resistance genes detected. Per the pharmacist, ceftriaxone is the appropriate treatment for the organism identified. He is to receive cardiac catheterization early this afternoon. He has no acute complaints at this time. 04/28/24 - Patient seen and examined at bedside this morning. No acute events overnight. Final urine culture noted to be negative. He underwent cardiac catheterization yesterday which no stents were placed and showed normal coronary arteries, preserved left ventricular systolic function and a normal LVEDP. He is waiting to be seen by urology. Cardiology consider him medically stable for discharge, plan is to discharge tomorrow following evaluation by urology. REVIEW OF SYSTEMS: Pertinent positives and negatives noted in HPI. Physical Exam: General: nontoxic Derm: warm, dry, intact Head: atraumatic, normocephalic, symmetric Eyes: EOMI, anicteric sclera Mouth: no lip lesion, mucus membranes moist Cardiovascular: S1 S2 reg, no murmur, rubs, or gallops Lungs: CTA bilateral, no rales, no accessory muscle use Abdominal: soft, non-tender to palpataion, no appreciable organomegaly Extremities: no gross muscle atrophy, no edema, no contractures Neuro: Alert, Oriented, CNII-XII grossly intact, gait normal Psych: well appearing, appropriate affect Data Received Today: Labs: WBC 6.6, hemoglobin 10.9, hematocrit 33.9, platelet 135; sodium 134, potassium 3.6, bicarb 21, BUN 6, creatinine 0.74, calcium 8.1, total bilirubin 0.9, AST 71, ALT 67, alkaline phosphatase 129 Imagining: Cardiac catheterization was completed yesterday which showed normal coronary arteries, preserved left ventricular systolic function and normal LVEDP without any stents placed; left ventriculogram showed normal left ventricle size and systolic function with an ejection fraction of 50-55% Assessment and plan 48-year-old man with PMH of autism panic attacks, had a panic attack earlier this morning with associated sharp chest pain, shortness of breath and dizziness. He describes the chest pain as being a sharp pain that is centrally located without radiation. He notes the pain having been 910/10 in intensity. Additionally, he endorses 2-day history of elevated temperature, with Tmax being 101 F, and "not feeling well". #Acute NSTEMI, type I versus type II #Possible new onset HFrEF (echocardiogram 04/25/24 showed EF 35-40% v left ventriculogram showed normal left ventricle size and systolic function with an ejection fraction of 50-55%) #History of panic attacks -Trend troponins: Initial troponin 1.310 => 1.170 => 0.859 => 0.804 -Continue with aspirin 81 mg daily, continue Lipitor 40 mg nightly -Heparin drip discontinued -Patient initiated on Zestril 5 mg twice daily per cardiology's recommendation -Cardiac monitoring -Supplemental oxygen as needed -Cardiology consulted -Undergoing cardiac catheterization today (04/27/2024) -left ventriculogram showed normal left ventricle size and systolic function with an ejection fraction of 50-55% -Continue to hold home antihypertensives #Severe sepsis secondary to E. coli bacteremia #Anion gap metabolic acidosis #Acute kidney injury, resolved #Hypokalemia, resolved #Lactic acidosis, resolved #Transaminitis #Elevated D-dimer -Continue on Rocephin IV 2 g daily -CT abdomen pelvis with contrast, and with oral contrast read and reviewed -Blood culture preliminarily positive for E. coli, without resistance gene detected -Final urine culture negative -Urology consulted due to patient's history of urethral stricture -0.9% 75 cc/h -Continue monitor CBC and CMP DVT ppx: Code status: Full code F: 0.9% 75 cc/h E: Replete as needed N: N.p.o. in preparation for catheterization A: Ambulatory Anticipated discharge place: Home Anticipated discharge time: Tomorrow Dictation was produced using [employer] dictation software. please excuse any grammatical, word or spelling errors. I have seen and evaluated the patient today. Discussed with the resident and agree with the residents finding and plan as documented in the resident's note. Changes highlighted in blue font. Objective - Vital Signs Vital signs: Vital Signs Temp 97.7 F 04/28/24 04:00 Pulse 93 04/28/24 04:00 Resp 18 04/28/24 04:00 BP 122/72 04/28/24 04:00 Pulse Ox 96 04/28/24 04:00 FiO2 Intake & Output 04/27/24 04/28/24 04/28/24 18:59 06:59 18:59 Intake Total 100 540 Balance 100 540 Weight 97.6 kg Intake: IV 100 Oral 540 Other: Voiding Method Toilet # Voids 3 - Labs CBC & Chem 7: 04/28/24 07:12 04/28/24 07:12 Labs: Abnormal Lab Results - Last 24 Hours (Table) 04/27/24 04/27/24 Range/Units 07:10 07:10 RBC 3.74 L (4.30-5.90) m/uL Hgb 11.3 L (13.0-17.5) gm/dL Hct 34.1 L (39.0-53.0) % Plt Count 115 L (150-450) k/uL Chloride 110 H (98-107) mmol/L Carbon Dioxide 21 L (22-30) mmol/L Glucose 102 H (74-99) mg/dL Calcium 7.9 L (8.4-10.2) mg/dL AST 66 H (17-59) U/L ALT 59 H (4-49) U/L Total Protein 5.2 L (6.3-8.2) g/dL Albumin 2.8 L (3.5-5.0) g/dL Microbiology - Last 24 Hours (Table) 04/25/24 11:10 Blood Culture Gram Stain - Preliminary Blood Blood Culture - Preliminary Escherichia coli Molecular ID
--- NOTE | 2024-04-28 19:04 | P.PN ---
Subjective Progress Note Date: 04/28/24 Patient is a 48-year-old male with past medical history significant for hypertension, urethral stricture with previous dilation. His primary care provider is Dr. Garvin. Patient presents emergency department yesterday afternoon complaining of substernal chest pain, diaphoresis, nausea and vomiting. Chest pain, severe, nonradiating, reported lasting 10 to 15 minutes. He did take 4 baby aspirin at home. His is at bedside, and states that he did get confused and pulled down the shower curtain at home. Patient believes he was having a panic attack. Of note, patient reportedly recently treated for URI by his PCP 1 to 2 weeks ago, given a course of amoxicillin and prednisone burst taper. States his symptoms initially improved and then worsened following completion of medications. Reportedly, having intermittent fevers, cough with occasional clear phlegm production. Denies purulent sputum, hemoptysis. Denies any abdominal pain. Denies any diarrhea. Appetite has been fair. Viral screen done at our facility negative for influenza A/B, COVID, RSV. Workup in the emergency department including a chest CTA which did not show any filling defects consistent with pulmonary embolism. Very minimal dependent groundglass opacities or atelectasis. No pleural effusions or pneumothoraces. CBC remarkable for leukocytosis with a WBC count of 26.3, hemoglobin 14.1, platelets 171. D-dimer was 7.6. CMP: Sodium 138, potassium 3.2, chloride 106, serum bicarb 15, BUN 27, creatinine 1.49, glucose 160. NT proBNP elevated at 2040. Troponins were elevated at 1.3, 1.17, and 0.8 respectively. EKG: Normal sinus rhythm, rate 100 bpm, T wave inversions in 3, aVF; no ST segment elevation or depressions. Patient was started on IV heparin per cardiology. Patient currently being evaluated in the emergency department. Resting comfortably in bed. His spouse is at bedside. Denies any further chest pain. Heparin continues per protocol. Denies heart palpitations, lightheadedness, syncopal events, orthopnea, PND, lower extremity edema. He is alert and oriented. Brain CT was done earlier and unremarkable for acute intracranial process. Did have low-grade temperature of 99.9 F. Empirically placed on antibiotics in the ED. UA remarkable for pyuria and rare bacteriuria. Blood pressure is marginal, did receive 2 L crystalloid fluid bolus in the ED. Current vital signs: Temperature 97.6 F, heart rate 70 bpm, blood pressure 87/59 mmHg, SpO2 97% on room air. 04/27/2024, seen the patient for a follow-up. The patient has improved considerably. The patient feels less short of breath. Afebrile. Hemodynamically stable and the patient is currently on room air oxygen with a 9 7% pulse ox. Meanwhile, the patient's procalcitonin level was considerably elevated at 28.9. Blood culture came back positive for E. coli and I suspect that this E. coli septicemia is related to a urinary source. The patient has had issues with urinary stricture in the past. Cardiac catheterization was also done and the patient was found to have normal coronaries, preserved LV function, normal left ventricular end-diastolic pressure. White cell count is currently down to 5.9 with a hemoglobin 11.3 and a platelet count of 115. BUN is 9 with a creatinine of 0.66 and sodium levels at 139. Hemodynamically stable. On 04/28/2024, the patient is being seen for a follow-up. Patient is feeling well. No new complaints. Remains on IV Rocephin. Urology consultation has been requested regarding his history of ureteral stricture. The white cell count is down to 6.6 with a hemoglobin 10.9 and a platelet count of 135. Electrolytes are all within normal limits. BUN 6 with a creatinine of 0.7. LFTs are mildly elevated. Procalcitonin level was as high as 28. He is on room air oxygen. No chest pain. Cardiac catheterization was completed and the patient has a normal coronaries Objective - Vital Signs Vital signs: Vital Signs Temp 97.6 F 04/28/24 08:00 Pulse 84 04/28/24 08:00 Resp 16 04/28/24 08:00 BP 147/91 04/28/24 08:00 Pulse Ox 99 04/28/24 08:00 FiO2 Intake & Output 04/27/24 04/28/24 04/28/24 18:59 06:59 18:59 Intake Total 100 540 240 Balance 100 540 240 Weight 97.6 kg Intake: IV 100 Oral 540 240 Other: Voiding Method Toilet Toilet # Voids 3 - Exam GENERAL EXAM: Alert, 48-year-old male, comfortable in no apparent distress. HEAD: Normocephalic and atraumatic EYES: Normal reaction of pupils, equal size. NOSE: Clear with pink turbinates. THROAT: No erythema or exudates. NECK: No masses, no JVD. CHEST: No chest wall deformity. LUNGS: Equal air entry with no crackles, wheeze, rhonchi or dullness. On room air. No conversational dyspnea or accessory muscle use.. CVS: S1 and S2 normal with soft grade 1 systolic murmur, regular rhythm. No other extra heart sounds ABDOMEN: No hepatosplenomegaly, active bowel sounds, no guarding or rigidity. SPINE: No scoliosis or deformity SKIN: No rashes CENTRAL NERVOUS SYSTEM: No focal deficits, tone is normal in all 4 extremities. EXTREMITIES: There is no peripheral edema, clubbing, or cyanosis. Peripheral pulses are intact. - Labs CBC & Chem 7: 04/28/24 07:12 04/28/24 07:12 Labs: Abnormal Lab Results - Last 24 Hours (Table) 04/28/24 04/28/24 Range/Units 07:12 07:12 RBC 3.71 L (4.30-5.90) m/uL Hgb 10.9 L (13.0-17.5) gm/dL Hct 33.9 L (39.0-53.0) % Plt Count 135 L (150-450) k/uL Sodium 134 L (137-145) mmol/L Carbon Dioxide 21 L (22-30) mmol/L BUN 6 L (9-20) mg/dL Glucose 118 H (74-99) mg/dL Calcium 8.1 L (8.4-10.2) mg/dL AST 71 H (17-59) U/L ALT 67 H (4-49) U/L Alkaline Phosphatase 129 H (38-126) U/L Total Protein 5.5 L (6.3-8.2) g/dL Albumin 3.1 L (3.5-5.0) g/dL Microbiology - Last 24 Hours (Table) 04/25/24 11:10 Blood Culture Gram Stain - Final Blood Blood Culture - Final Escherichia coli Molecular ID Assessment and Plan Assessment: E. coli sepsis, likely urinary source. Currently on IV Rocephin 2 g every 24 hours. The patient has abnormal UA. The patient also has previous history of urethral stricture that has required dilatation. Will consult urology again. Acute dyspnea, chest CTA unremarkable for filling defects consistent with pulmonary embolism, very minimal bibasilar groundglass opacity disease/atelectasis. No obvious focal infiltrates or definitive pneumonia. No significant shortness of breath for now. Elevated troponins probably demand type of myocardial ischemia type II second to underlying sepsis. Cardiac catheterization was done and the coronaries are within normal limits. Left-ventricular diastolic pressure is also within normal limits. Acute leukocytosis, improving Anion gap metabolic acidosis, improved Acute kidney injury,, improved Hypokalemia, replaced History of urethral stricture with previous dilation History of hypertension Obesity, with a BMI 31.5 kg/m Plan: Continue same treatment Clinically improving Continue Rocephin 2 g every 24 hours Cardiac catheterization results were noted Patient currently on room air oxygen White cell count is improving Renal function has normalized Clinically improving Consult urology regarding a complicated urine tract infection as the patient has previous history of ureteral stricture. Time with Patient: Greater than 30
[2024-04-29 06:46] LABS: Basophils % (A) 0 %; Eosinophils # (A) 0.1 k/uL (0-0.7); Eosinophils % (A) 2 %; HCT 32.9 % (39.0-53.0); HGB 10.9 gm/dL (13.0-17.5); Hypochromasia Slight; Lymphocytes % (A) 32 %; MCH 30.4 pg (25.0-35.0); MCHC 33.2 g/dL (31.0-37.0); MCV 91.4 fL (80.0-100.0); Mean Platelet Volume 7.9; Monocytes # (A) 0.4 k/uL (0-1.0); Monocytes % (A) 6 %; Neutrophils # (A) 3.4 k/uL (1.3-7.7); Neutrophils % (A) 56 %; Platelet Count 148 k/uL (150-450); RDW 13.4 % (11.5-15.5); WBC 6.2 k/uL (3.8-10.6)
[2024-04-29 06:57] LABS: ALT 81 U/L (4-49); AST 76 U/L (17-59); African American GFR (CKD) >90 (>60 ml/min/1.73 sqM); Albumin 3.2 g/dL (3.5-5.0); Alkaline Phosphatase 111 U/L (38-126); Anion Gap 7 mmol/L; Blood Urea Nitrogen 7 mg/dL (9-20); Calcium 8.8 mg/dL (8.4-10.2); Carbon Dioxide 25 mmol/L (22-30); Chloride 107 mmol/L (98-107); Glucose 95 mg/dL (74-99); Non-African American GFR(CKD) >90 (>60 ml/min/1.73 sqM); Potassium 3.9 mmol/L (3.5-5.1); Sodium 139 mmol/L (137-145); Total Bilirubin 0.6 mg/dL (0.2-1.3); Total Protein 5.7 g/dL (6.3-8.2)
--- NOTE | 2024-04-29 11:01 | P.PN ---
Subjective Progress Note Date: 04/29/24 48-year-old man with PMH of autism panic attacks, had a panic attack earlier this morning with associated sharp chest pain, shortness of breath and dizziness. He describes the chest pain as being a sharp pain that is centrally located without radiation. He notes the pain having been 910/10 in intensity. He notes that nothing alleviates the pain and even presently when exerting himself in the bed he notes some centrally located chest pain. Additionally, he endorses 2-day history of elevated temperature, with Tmax being 101 F, and "not feeling well". He states that he had been feeling this way dating back more than a week ago, at that time he went to [facility] and was prescribed amoxicillin and prednisone and he began to feel better. However, he notes that this past weekend he began feeling the same way he had been before, with increased fatigue and fevers. 04/26/24 - Patient seen and examined at bedside this morning, remaining in the emergency department, patient's at bedside as well. No acute events overnight. He denies any shortness of breath or chest pain at time examination. Blood pressure continues to be marginal, 105/61, and improvement from yesterday afternoon. Continues to have good oxygen saturation on room air. 04/27/24 - Patient seen and examined at bedside this morning. No acute events overnight. Preliminary blood culture positive for E. coli, with no resistance genes detected. Per the pharmacist, ceftriaxone is the appropriate treatment for the organism identified. He is to receive cardiac catheterization early this afternoon. He has no acute complaints at this time. 04/28/24 - Patient seen and examined at bedside this morning. No acute events overnight. Final urine culture noted to be negative. He underwent cardiac catheterization yesterday which no stents were placed and showed normal coronary arteries, preserved left ventricular systolic function and a normal LVEDP. He is waiting to be seen by urology. Cardiology consider him medically stable for discharge, plan is to discharge tomorrow following evaluation by urology. 04/29/24 - Patient seen and examined at bedside this morning. No acute events overnight. He is scheduled to undergo surgery for his urethral stricture with Dr. Marie. He reports feeling well without any acute complaints at this time. REVIEW OF SYSTEMS: Pertinent positives and negatives noted in HPI. Physical Exam: General: nontoxic, no distress. Derm: warm, dry, intact Head: atraumatic, normocephalic, symmetric Eyes: EOMI, anicteric sclera Mouth: no lip lesion, mucus membranes moist Cardiovascular: S1 S2 reg, no murmur, rubs, or gallops Lungs: CTA bilateral, no rales, no accessory muscle use Abdominal: soft, non-tender to palpataion, no appreciable organomegaly Extremities: no gross muscle atrophy, no edema, no contractures Neuro: Alert, Oriented, CNII-XII grossly intact, gait normal Psych: well appearing, appropriate affect Data Received Today: Labs: WBC 6.2, hemoglobin 10.9, hematocrit 32.9, platelet 148; sodium 139, potassium 3.9, bicarb 25, BUN 7, creatinine 0.70, calcium 8.8, AST 76, ALT 81 Imagining: No new ventricular Assessment and plan 48-year-old man with PMH of autism panic attacks, had a panic attack earlier this morning with associated sharp chest pain, shortness of breath and dizziness. He describes the chest pain as being a sharp pain that is centrally located without radiation. He notes the pain having been 910/10 in intensity. Additionally, he endorses 2-day history of elevated temperature, with Tmax being 101 F, and "not feeling well". #Severe sepsis secondary to UTI #History of urethral stricture #Anion gap metabolic acidosis #Acute kidney injury, resolved #Hypokalemia, resolved #Lactic acidosis, resolved #Transaminitis #Elevated D-dimer -Continue on Rocephin IV 2 g daily (day 4) -Final urine culture negative -0.9% 20 cc/h -Continue monitor CBC and CMP -He is scheduled to undergo repair of his urethral stricture with Dr. Marie today #Acute NSTEMI, type I versus type II #Possible new onset HFrEF (echocardiogram 04/25/24 showed EF 35-40% v left ventriculogram showed normal left ventricle size and systolic function with an ejection fraction of 50-55%) #History of panic attacks -left ventriculogram showed normal left ventricle size and systolic function with an ejection fraction of 50-55% -Cardiac cath showing normal coronary arteries -Continue with aspirin 81 mg daily, continue Lipitor 40 mg nightly -Heparin drip discontinued -Cardiac monitoring -Supplemental oxygen as needed -Cardiology consulted -Continue to hold home antihypertensives DVT ppx: Code status: Full code F: 0.9% 20 cc/h E: Replete as needed N: N.p.o. in preparation for ureteral surgery A: Ambulatory Anticipated discharge place: Home Anticipated discharge time: Tomorrow Dictation was produced using [employer] dictation software. please excuse any grammatical, word or spelling errors. I have seen and evaluated the patient today. Discussed with the resident and agree with the residents finding and plan as documented in the resident's note. Changes highlighted in blue font. Objective - Vital Signs Vital signs: Vital Signs Temp 97.8 F 04/29/24 08:00 Pulse 61 04/29/24 08:00 Resp 16 04/29/24 08:00 BP 156/93 04/29/24 08:00 Pulse Ox 100 04/29/24 08:00 FiO2 Intake & Output 04/28/24 04/29/24 04/29/24 18:59 06:59 18:59 Intake Total 720 Balance 720 Weight 98.2 kg Intake: Oral 720 Other: Voiding Method Toilet Toilet Toilet # Voids 2 - Labs CBC & Chem 7: 04/29/24 05:30 04/29/24 05:30 Labs: Abnormal Lab Results - Last 24 Hours (Table) 04/29/24 04/29/24 Range/Units 05:30 05:30 RBC 3.60 L (4.30-5.90) m/uL Hgb 10.9 L (13.0-17.5) gm/dL Hct 32.9 L (39.0-53.0) % Plt Count 148 L (150-450) k/uL BUN 7 L (9-20) mg/dL AST 76 H (17-59) U/L ALT 81 H (4-49) U/L Total Protein 5.7 L (6.3-8.2) g/dL Albumin 3.2 L (3.5-5.0) g/dL Microbiology - Last 24 Hours (Table) 04/25/24 11:10 Blood Culture Gram Stain - Final Blood Blood Culture - Final Escherichia coli Molecular ID
--- NOTE | 2024-04-29 12:40 | P.GSCN ---
History of Present Illness Consult date: 04/28/24 Reason for Consult: Possible UTI, h/o urethral stricture disease Requesting physician: Shelly Peraza History of present illness: The patient is a 48-year-old white male who presented to the ER with complaints of chest pain, dyspnea, and dizziness on April 25, 2024. He also reported fever and laboratory studies showed evidence of leukocytosis. Urinalysis was somewhat suggestive of a UTI. A urine culture was negative, but the specimen appears to have been obtained after the patient received a dose of azithromycin. Additionally, the patient has taken amoxicillin for 7 days for an upper respiratory tract infection. Blood cultures have shown E. coli. The patient has a history of urethral stricture disease. A CT scan of the abdomen and pelvis showed no genitourinary abnormalities. The patient has a history of hypospadius repair during childhood. He has developed meatal stenosis. He underwent urethral dilation and cystoscopy by Dr. Porter in April 2023. The patient states that his urinary stream improved significantly following that procedure, but has recently diminished and he reports a feeling of incomplete bladder emptying. He also reports urinary frequency and urgency. An attempt to catheterize him in the emergency room was unsuccessful. Review of Systems - Cardiovascular Reports high blood pressure - Genitourinary Reports as per HPI Past Medical History Past Medical History: Hypertension Additional Past Medical History / Comment(s): urethral stricture, high functioning autism History of Any Multi-Drug Resistant Organisms: None Reported Additional Past Surgical History / Comment(s): urethral stricture surgery Past Anesthesia/Blood Transfusion Reactions: No Reported Reaction Past Psychological History: Anxiety, Panic Disorder Smoking Status: Never smoker Past Alcohol Use History: Occasional Past Drug Use History: None Reported Medications and Allergies Home Medications Medication Instructions Recorded Confirmed Type Multivitamins, Thera [Multivitamin 1 tab PO DAILY 04/25/24 04/25/24 History (formulary)] amLODIPine [Norvasc] 5 mg PO DAILY 04/25/24 04/25/24 History lisinopriL [Zestril] 20 mg PO DAILY 04/25/24 04/25/24 History Allergies Allergy/AdvReac Type Severity Reaction Status Date / Time No Known Allergies Allergy Verified 04/25/24 09:52 Surgical - Exam Vital Signs Temp Pulse Resp BP Pulse Ox 99.7 F H 101 H 18 103/63 97 04/25/24 09:30 04/25/24 09:30 04/25/24 09:30 04/25/24 09:30 04/25/24 09:30 - General well developed, well nourished, no distress - Respiratory normal respiratory effort - Genitourinary The penis is circumcised. Scarring of the glans penis was evident due to previous hypospadias repair. The urethral meatus is diminished in caliber. Frenular edema is noted. The scrotum and testes are normal. - Psychiatric oriented to time, oriented to person, oriented to place, speech is normal, memory intact Results - Labs 04/29/24 05:30 04/29/24 05:30 Abnormal Lab Results - Last 24 Hours (Table) 04/28/24 04/28/24 Range/Units 07:12 07:12 RBC 3.71 L (4.30-5.90) m/uL Hgb 10.9 L (13.0-17.5) gm/dL Hct 33.9 L (39.0-53.0) % Plt Count 135 L (150-450) k/uL Sodium 134 L (137-145) mmol/L Carbon Dioxide 21 L (22-30) mmol/L BUN 6 L (9-20) mg/dL Glucose 118 H (74-99) mg/dL Calcium 8.1 L (8.4-10.2) mg/dL AST 71 H (17-59) U/L ALT 67 H (4-49) U/L Alkaline Phosphatase 129 H (38-126) U/L Total Protein 5.5 L (6.3-8.2) g/dL Albumin 3.1 L (3.5-5.0) g/dL Microbiology - Last 24 Hours (Table) 04/25/24 11:10 Blood Culture Gram Stain - Final Blood Blood Culture - Final Escherichia coli Molecular ID Diabetes panel 04/28/24 Range/Units 07:12 Sodium 134 L (137-145) mmol/L Potassium 3.6 (3.5-5.1) mmol/L Chloride 106 (98-107) mmol/L Carbon Dioxide 21 L (22-30) mmol/L BUN 6 L (9-20) mg/dL Creatinine 0.74 (0.66-1.25) mg/dL Glucose 118 H (74-99) mg/dL Calcium 8.1 L (8.4-10.2) mg/dL AST 71 H (17-59) U/L ALT 67 H (4-49) U/L Alkaline Phosphatase 129 H (38-126) U/L Total Protein 5.5 L (6.3-8.2) g/dL Albumin 3.1 L (3.5-5.0) g/dL Calcium panel 04/28/24 Range/Units 07:12 Calcium 8.1 L (8.4-10.2) mg/dL Albumin 3.1 L (3.5-5.0) g/dL Pituitary panel 04/28/24 Range/Units 07:12 Sodium 134 L (137-145) mmol/L Potassium 3.6 (3.5-5.1) mmol/L Chloride 106 (98-107) mmol/L Carbon Dioxide 21 L (22-30) mmol/L BUN 6 L (9-20) mg/dL Creatinine 0.74 (0.66-1.25) mg/dL Glucose 118 H (74-99) mg/dL Calcium 8.1 L (8.4-10.2) mg/dL Adrenal panel 04/28/24 Range/Units 07:12 Sodium 134 L (137-145) mmol/L Potassium 3.6 (3.5-5.1) mmol/L Chloride 106 (98-107) mmol/L Carbon Dioxide 21 L (22-30) mmol/L BUN 6 L (9-20) mg/dL Creatinine 0.74 (0.66-1.25) mg/dL Glucose 118 H (74-99) mg/dL Calcium 8.1 L (8.4-10.2) mg/dL Total Bilirubin 0.9 (0.2-1.3) mg/dL AST 71 H (17-59) U/L ALT 67 H (4-49) U/L Alkaline Phosphatase 129 H (38-126) U/L Total Protein 5.5 L (6.3-8.2) g/dL Albumin 3.1 L (3.5-5.0) g/dL - Imaging CT scan - abdomen: report reviewed, image reviewed Assessment and Plan (1) Unspecified urethral stricture, male, meatal Current Visit: Yes Status: Acute Code(s): N35.911 - UNSPECIFIED URETHRAL STRICTURE, MALE, MEATAL SNOMED Code(s): 88164403546345270 Plan: The patient will undergo urethral dilation with cystoscopy to improve bladder emptying. The procedure has been reviewed in detail with the patient, who is aware of risks which include anesthesia, bleeding, infection, and recurrent stricture.
--- NOTE | 2024-04-29 12:45 | P.PN ---
Subjective HISTORY OF PRESENT ILLNESS: This is a 48-year-old male with a past medical history significant for hypertension, obesity, and anxiety. Patient not follow with a title i assistant. We have been asked to see the patient in consultation for elevated troponins. Patient examined at the bedside in the emergency room. Patient states this morning he had a panic attack. He states shortly after this he began to have chest pain in the middle of his chest that felt like a stabbing sensation. He states the pain was in the middle of his chest and also on the right side of his chest. He states the pain lasted for about 15 minutes and then subsided. He states that he was not doing anything exertionally related at that time. He denies having any previous episodes of chest pain in the past. The patient does report that he has been feeling ill over the past week. He states that he went to his PCP office last Thursday and was diagnosed with an upper respiratory infection and was prescribed steroids and antibiotics. He states that he was starting to feel little bit better until this weekend when he started to feel worse again. He does report having a fever at home. According to EMS he had 101.0 temperature and route to the hospital. He continues to have a low-grade fever of 99.9. Patient is also hypotensive with a systolic blood pressure in the 80s90s. DIAGNOSTICS: - EKG reveals sinus tachycardia with T wave inversions inferiorly. - Chest xray negative for acute process. - Chest CTA: Negative for pulmonary embolism. Minimal dependent groundglass opacity/atelectasis. Correlate for possible atypical pneumonia. - Laboratory data: WBC 26.3. Hemoglobin 14.1. Platelet count 171. Sodium 138. Potassium 3.2. BUN 27. Creatinine 1.49. Lactic acid 2.7. Troponin 1.310. - Current home cardiac medications include lisinopril 20 mg daily and amlodipine 5 mg daily - No previous echocardiogram, stress test, or cardiac catheterization available in EMR for review 04/26/2024 Patient examined this morning in the emergency room. Patient's is at the bedside. Patient states he feels weak this morning. He states he has been sneezing and coughing a lot. He denies shortness of breath. He denies any chest pain at the time of examination. He remains on IV heparin. Troponins resulted at 1.310. 1.170. 0.859. 0.804. Blood pressures this morning remain marginal. 04/28/2024 Patient is s/p cardiac catheterization with Dr. Love revealing normal coronary arteries, normal LVEDP and preserved left ventricular systolic function. Patient seen this afternoon. Patient is sitting up in the chair. He denies any chest pain or pressure. He continues to report frequent coughing. He states that he feels tired and does not have much energy currently. Vital signs are stable. Telemetry reveals sinus mechanism 04/29/2024 Patient examined at the bedside. Patient denies chest pain or pressure. Denies shortness of breath. Patient does report having some anxiety today. Patient has been up ambulating without difficulty. Vital signs are stable. Blood pressure is elevated with a systolic between [id number]. He is maintaining sinus mechanism on telemetry. Patient was evaluated by urology and is scheduled for to undergo urethral dilation today. PHYSICAL EXAM: VITAL SIGNS: Reviewed. GENERAL: Well-developed in no acute distress. HEENT: Head is normocephalic. Pupils are equal, round. Sclerae anicteric. Mucous membranes of the mouth are moist. Neck supple. No JVD or thyromegaly LUNGS: Respirations even and unlabored. Lungs are clear to auscultation. HEART: Regular rate and rhythm. S1 and S2 heard. ABDOMEN: Soft. Nondistended. Nontender. EXTREMITIES: Normal range of motion. No clubbing or cyanosis. Peripheral pu lses intact. No lower extremity edema NEUROLOGIC: Awake and alert. Oriented x 3. ASSESSMENT: Elevated troponins, Type II TN, status post cardiac cath revealing normal coronary arteries Recent upper respiratory infection E. coli bacteremia Sepsis with leukocytosis, fever, and hypotension Acute kidney injury, resolved Elevated D-dimer, CTA negative for pulmonary embolism History of hypertension History of urethral stricture PLAN: Increase lisinopril to 10 mg twice a day. Given additional 5 mg now. Continue additional current cardiac medications Patient is currently stable for discharge from a cardiac standpoint Patient to follow-up postdischarge with Dr. Love Nurse practitioner note has been reviewed by physician. Signing provider agrees with the documented findings, assessment, and plan of care documented by TANK PUMPER as a scribe. Objective - Vital Signs Vital signs: Vital Signs Temp 97.8 F 04/29/24 08:00 Pulse 61 04/29/24 08:00 Resp 16 04/29/24 08:00 BP 156/93 04/29/24 08:00 Pulse Ox 100 04/29/24 08:00 FiO2 Intake & Output 04/28/24 04/29/24 04/29/24 18:59 06:59 18:59 Intake Total 720 Balance 720 Weight 98.2 kg Intake: Oral 720 Other: Voiding Method Toilet Toilet Toilet # Voids 2 - Labs CBC & Chem 7: 04/29/24 05:30 04/29/24 05:30 Labs: Abnormal Lab Results - Last 24 Hours (Table) 04/29/24 04/29/24 Range/Units 05:30 05:30 RBC 3.60 L (4.30-5.90) m/uL Hgb 10.9 L (13.0-17.5) gm/dL Hct 32.9 L (39.0-53.0) % Plt Count 148 L (150-450) k/uL BUN 7 L (9-20) mg/dL AST 76 H (17-59) U/L ALT 81 H (4-49) U/L Total Protein 5.7 L (6.3-8.2) g/dL Albumin 3.2 L (3.5-5.0) g/dL Microbiology - Last 24 Hours (Table) 04/25/24 11:10 Blood Culture Gram Stain - Final Blood Blood Culture - Final Escherichia coli Molecular ID
[2024-04-29] MEDS: ALPRAZolam 0.5 MG TAB PO PRN (14:00)
[2024-04-29] MEDS: lisinopriL 5 MG TAB PO STA (14:00)
[2024-04-29] MEDS: DEXAMETHASONE SOD PHOSPHATE 4 MG/ML 1 ML VIAL IVP STA (14:53)
[2024-04-29] MEDS: LACTATED RINGERS 1,000 ML IV ONE (14:57)
[2024-04-29] MEDS: LACTATED RINGERS 1,000 ML IV STA (15:00)
--- NOTE | 2024-04-29 16:08 | P.PN ---
Subjective Progress Note Date: 04/29/24 Patient is a 48-year-old male with past medical history significant for hypertension, urethral stricture with previous dilation. His primary care provider is Dr. Garvin. Patient presents emergency department yesterday afternoon complaining of substernal chest pain, diaphoresis, nausea and vomiting. Chest pain, severe, nonradiating, reported lasting 10 to 15 minutes. He did take 4 baby aspirin at home. His is at bedside, and states that he did get confused and pulled down the shower curtain at home. Patient believes he was having a panic attack. Of note, patient reportedly recently treated for URI by his PCP 1 to 2 weeks ago, given a course of amoxicillin and prednisone burst taper. States his symptoms initially improved and then worsened following completion of medications. Reportedly, having intermittent fevers, cough with occasional clear phlegm production. Denies purulent sputum, hemoptysis. Denies any abdominal pain. Denies any diarrhea. Appetite has been fair. Viral screen done at our facility negative for influenza A/B, COVID, RSV. Workup in the emergency department including a chest CTA which did not show any filling defects consistent with pulmonary embolism. Very minimal dependent groundglass opacities or atelectasis. No pleural effusions or pneumothoraces. CBC remarkable for leukocytosis with a WBC count of 26.3, hemoglobin 14.1, platelets 171. D-dimer was 7.6. CMP: Sodium 138, potassium 3.2, chloride 106, serum bicarb 15, BUN 27, creatinine 1.49, glucose 160. NT proBNP elevated at 2040. Troponins were elevated at 1.3, 1.17, and 0.8 respectively. EKG: Normal sinus rhythm, rate 100 bpm, T wave inversions in 3, aVF; no ST segment elevation or depressions. Patient was started on IV heparin per cardiology. Patient currently being evaluated in the emergency department. Resting comfortably in bed. His spouse is at bedside. Denies any further chest pain. Heparin continues per protocol. Denies heart palpitations, lightheadedness, syncopal events, orthopnea, PND, lower extremity edema. He is alert and oriented. Brain CT was done earlier and unremarkable for acute intracranial process. Did have low-grade temperature of 99.9 F. Empirically placed on antibiotics in the ED. UA remarkable for pyuria and rare bacteriuria. Blood pressure is marginal, did receive 2 L crystalloid fluid bolus in the ED. Current vital signs: Temperature 97.6 F, heart rate 70 bpm, blood pressure 87/59 mmHg, SpO2 97% on room air. 04/27/2024, seen the patient for a follow-up. The patient has improved considerably. The patient feels less short of breath. Afebrile. Hemodynamically stable and the patient is currently on room air oxygen with a 9 7% pulse ox. Meanwhile, the patient's procalcitonin level was considerably elevated at 28.9. Blood culture came back positive for E. coli and I suspect that this E. coli septicemia is related to a urinary source. The patient has had issues with urinary stricture in the past. Cardiac catheterization was also done and the patient was found to have normal coronaries, preserved LV function, normal left ventricular end-diastolic pressure. White cell count is currently down to 5.9 with a hemoglobin 11.3 and a platelet count of 115. BUN is 9 with a creatinine of 0.66 and sodium levels at 139. Hemodynamically stable. On 04/28/2024, the patient is being seen for a follow-up. Patient is feeling well. No new complaints. Remains on IV Rocephin. Urology consultation has been requested regarding his history of ureteral stricture. The white cell count is down to 6.6 with a hemoglobin 10.9 and a platelet count of 135. Electrolytes are all within normal limits. BUN 6 with a creatinine of 0.7. LFTs are mildly elevated. Procalcitonin level was as high as 28. He is on room air oxygen. No chest pain. Cardiac catheterization was completed and the patient has a normal coronaries On 04/29/2024, the patient is being seen for a follow-up. Doing well. Remains on IV Rocephin. The patient has no fever. White cell count is normalized down to 6.2. Hemoglobin is 10.9. Platelet count is at 148. Electrolytes are all within normal limits with a BUN of 7 and a creatinine of 0.6. On a separate note, the patient was evaluated by urology. The patient has a urethral stricture and the patient is going to undergo a urethral dilatation with cystoscopy to improve bladder emptying. At Objective - Vital Signs Vital signs: Vital Signs Temp 97.5 F L 04/29/24 11:57 Pulse 60 04/29/24 11:57 Resp 16 04/29/24 11:57 BP 176/84 04/29/24 11:57 Pulse Ox 100 04/29/24 11:57 FiO2 Intake & Output 04/28/24 04/29/24 04/29/24 18:59 06:59 18:59 Intake Total 720 Balance 720 Weight 98.2 kg Intake: Oral 720 Other: Voiding Method Toilet Toilet Toilet # Voids 2 - Exam GENERAL EXAM: Alert, 48-year-old male, comfortable in no apparent distress. HEAD: Normocephalic and atraumatic EYES: Normal reaction of pupils, equal size. NOSE: Clear with pink turbinates. THROAT: No erythema or exudates. NECK: No masses, no JVD. CHEST: No chest wall deformity. LUNGS: Equal air entry with no crackles, wheeze, rhonchi or dullness. On room air. No conversational dyspnea or accessory muscle use.. CVS: S1 and S2 normal with soft grade 1 systolic murmur, regular rhythm. No other extra heart sounds ABDOMEN: No hepatosplenomegaly, active bowel sounds, no guarding or rigidity. SPINE: No scoliosis or deformity SKIN: No rashes CENTRAL NERVOUS SYSTEM: No focal deficits, tone is normal in all 4 extremities. EXTREMITIES: There is no peripheral edema, clubbing, or cyanosis. Peripheral pulses are intact. - Labs CBC & Chem 7: 04/29/24 05:30 04/29/24 05:30 Labs: Abnormal Lab Results - Last 24 Hours (Table) 04/29/24 04/29/24 Range/Units 05:30 05:30 RBC 3.60 L (4.30-5.90) m/uL Hgb 10.9 L (13.0-17.5) gm/dL Hct 32.9 L (39.0-53.0) % Plt Count 148 L (150-450) k/uL BUN 7 L (9-20) mg/dL AST 76 H (17-59) U/L ALT 81 H (4-49) U/L Total Protein 5.7 L (6.3-8.2) g/dL Albumin 3.2 L (3.5-5.0) g/dL Microbiology - Last 24 Hours (Table) 04/25/24 11:10 Blood Culture Gram Stain - Final Blood Blood Culture - Final Escherichia coli Molecular ID Assessment and Plan Assessment: E. coli sepsis, likely urinary source. Currently on IV Rocephin 2 g every 24 hours. The patient has abnormal UA. The patient also has previous history of urethral stricture that has required dilatation. Urology is on the case. Acute dyspnea, chest CTA unremarkable for filling defects consistent with pulmonary embolism, very minimal bibasilar groundglass opacity disease/atelectasis. No obvious focal infiltrates or definitive pneumonia. No significant shortness of breath for now. Elevated troponins probably demand type of myocardial ischemia type II second to underlying sepsis. Cardiac catheterization was done and the coronaries are wit hin normal limits. Left-ventricular diastolic pressure is also within normal limits. Acute leukocytosis, improving Anion gap metabolic acidosis, improved Acute kidney injury,, improved Hypokalemia, replaced History of urethral stricture with previous dilation History of hypertension Obesity, with a BMI 31.5 kg/m Plan: Continue same treatment Clinically improving Continue Rocephin 2 g every 24 hours Cardiac catheterization results were noted Patient currently on room air oxygen White cell count is improving Renal function has normalized Clinically improving Patient evaluated by urology. He is going to undergo ureteral dilatation to improve bladder emptying.
[2024-04-29] MEDS ORDERED: MIDAZOLAM 2 MG/2 ML VIAL ONE (16:16)
[2024-04-29] MEDS ORDERED: KETAMINE HCL IN 0.9 % NACL 50 MG/5 ML SYRINGE ONE (16:16)
[2024-04-29] MEDS ORDERED: fentaNYL (PF) 50 MCG/ML 2 ML AMP ONE (16:16)
[2024-04-29] MEDS ORDERED: PROPOFOL 10 MG/ML 20 ML VIAL IV ONE (16:16)
--- NOTE | 2024-04-29 17:02 | P.OP ---
Date of Procedure: 04/29/24 Preoperative Diagnosis: Urethral stricture Postoperative Diagnosis: Urethral strictures Procedure(s) Performed: Cystoscopy with urethral dilation Anesthesia: MAC Surgeon: Jh Marie Estimated Blood Loss (ml): 0 IV fluids (ml): 100 Pathology: none sent Condition: stable Disposition: PACU Indications for Procedure: The patient is a 48-year-old white male who presented to the ER with complaints of chest pain, dyspnea, and dizziness on April 25, 2024. He also reported fever and laboratory studies showed evidence of leukocytosis. Urinalysis was somewhat suggestive of a UTI. A urine culture was negative, but the specimen appears to have been obtained after the patient received a dose of azithromycin. Additionally, the patient has taken amoxicillin for 7 days for an upper respiratory tract infection. Blood cultures showed E. coli. A CT scan of the abdomen and pelvis showed no genitourinary abnormalities. The patient has a history of urethral stricture disease. He underwent hypospadius repair during childhood and has developed meatal stenosis. He underwent urethral dilation and cystoscopy by Dr. Porter in April 2023. The patient states that his urinary stream improved significantly following that procedure, but has recently diminished and he reports a feeling of incomplete bladder emptying. He also reports urinary frequency and urgency. An attempt to catheterize him in the emergency room was unsuccessful, and his postvoid residual was measured at approximately 350 cc. He now comes for cystoscopy with urethral dilation. Operative Findings: Penile urethral strictures, most prominent at the fossa navicularis. Description of Procedure: The patient was taken to the operating room and placed in the dorsolithotomy position, with his legs supported in Mukesh stirrups. The external genitalia was prepped and draped sterilely. A 0.035 inch Glidewire was passed through the urethral meatus and advanced into the bladder. S-dilators were used to dilate the urethra from 8 Malian to 20 Malian. Cystoscopy was then performed. The 30 degree lens was used to introduce the 17 Malian start cystoscopic sheath through the urethra and into the bladder. Scarring of the distal urethra in the region of the fossa navicularis was noted. Additional scarring was noted within the more proximal aspect of the penile urethra. The bulbous urethra appeared normal. The prostatic urethra was unremarkable, as well as the bladder. The bladder was not significantly trabeculated. The ureteral orifice ease appeared normal. No tumors or foreign bodies were seen. The cystoscope was removed, and a 14 Malian Holden catheter was placed. Some resistance was met as it passed through the fossa navicularis. The irrigant draining from the bladder was clear, and the catheter was connected to gravity drainage. The patient tolerated the procedure well and was taken to the recovery room in stable condition.
[2024-04-29] MEDS: lisinopriL 10 MG TAB PO SCH (19:45)
[2024-04-30 06:50] LABS: Basophils % (A) 0 %; Eosinophils % (A) 0 %; HCT 34.6 % (39.0-53.0); HGB 10.8 gm/dL (13.0-17.5); Lymphocytes # (A) 1.1 k/uL (1.0-4.8); Lymphocytes % (A) 11 %; MCH 28.4 pg (25.0-35.0); MCHC 31.3 g/dL (31.0-37.0); MCV 90.8 fL (80.0-100.0); Mean Platelet Volume 7.7; Monocytes # (A) 0.5 k/uL (0-1.0); Monocytes % (A) 5 %; Neutrophils # (A) 8.3 k/uL (1.3-7.7); Neutrophils % (A) 82 %; Platelet Count 222 k/uL (150-450); RDW 13.2 % (11.5-15.5); WBC 10.1 k/uL (3.8-10.6)
[2024-04-30 07:12] LABS: ALT 74 U/L (4-49); AST 47 U/L (17-59); African American GFR (CKD) >90 (>60 ml/min/1.73 sqM); Albumin 3.3 g/dL (3.5-5.0); Alkaline Phosphatase 99 U/L (38-126); Anion Gap 8 mmol/L; Blood Urea Nitrogen 10 mg/dL (9-20); Calcium 8.9 mg/dL (8.4-10.2); Carbon Dioxide 23 mmol/L (22-30); Chloride 108 mmol/L (98-107); Glucose 119 mg/dL (74-99); Non-African American GFR(CKD) >90 (>60 ml/min/1.73 sqM); Potassium 4.1 mmol/L (3.5-5.1); Sodium 139 mmol/L (137-145); Total Bilirubin 0.6 mg/dL (0.2-1.3); Total Protein 5.8 g/dL (6.3-8.2)
[2024-04-30] MEDS: amLODIPine 5 MG TAB PO SCH (10:20)
[2024-04-30] MEDS: lisinopriL 10 MG TAB PO STA (10:20)
--- NOTE | 2024-04-30 11:05 | P.PN ---
Subjective Progress Note Date: 04/30/24 Principal diagnosis: Urethral strictures, probable UTI The patient underwent cystoscopy with urethral dilation yesterday. He has no complaints this morning. The Holden catheter is in place, draining clear yellow urine. Objective - Vital Signs Vital signs: Vital Signs Temp 98.2 F 04/30/24 01:41 Pulse 87 04/30/24 01:41 Resp 18 04/30/24 01:41 BP 132/82 04/30/24 01:41 Pulse Ox 97 04/30/24 01:41 FiO2 Intake & Output 04/29/24 04/30/24 04/30/24 18:59 06:59 18:59 Intake Total 400 Output Total 700 2950 Balance -300 -2950 Weight 93.4 kg Intake: IV 400 Output: Urine 700 2950 Estimated Blood Loss 0 Other: Voiding Method Toilet Indwelling Catheter - Constitutional General appearance: Present: average body habitus, cooperative, no acute distress - Psychiatric Psychiatric: Present: A&O x's 3 - Labs CBC & Chem 7: 04/30/24 05:57 04/30/24 05:57 Labs: Abnormal Lab Results - Last 24 Hours (Table) 04/30/24 04/30/24 Range/Units 05:57 05:57 RBC 3.80 L (4.30-5.90) m/uL Hgb 10.8 L (13.0-17.5) gm/dL Hct 34.6 L (39.0-53.0) % Neutrophils # 8.3 H (1.3-7.7) k/uL Chloride 108 H (98-107) mmol/L Glucose 119 H (74-99) mg/dL ALT 74 H (4-49) U/L Total Protein 5.8 L (6.3-8.2) g/dL Albumin 3.3 L (3.5-5.0) g/dL Assessment and Plan (1) Unspecified urethral stricture, male, meatal Current Visit: Yes Status: Acute Code(s): N35.911 - UNSPECIFIED URETHRAL STRICTURE, MALE, MEATAL SNOMED Code(s): [id number] Plan: Blood cultures have shown E. coli, and the patient is receiving ceftriaxone. He has undergone urethral dilation, and the Holden catheter will be removed tomorrow morning. He will be referred to a reconstructive urologist as an outpatient to address his recurrent urethral stricture disease.
--- NOTE | 2024-04-30 11:37 | P.PN ---
Subjective Progress Note Date: 04/30/24 48-year-old man with PMH of autism panic attacks, had a panic attack earlier this morning with associated sharp chest pain, shortness of breath and dizziness. He describes the chest pain as being a sharp pain that is centrally located without radiation. He notes the pain having been 910/10 in intensity. He notes that nothing alleviates the pain and even presently when exerting himself in the bed he notes some centrally located chest pain. Additionally, he endorses 2-day history of elevated temperature, with Tmax being 101 F, and "not feeling well". He states that he had been feeling this way dating back more than a week ago, at that time he went to [facility] and was prescribed amoxicillin and prednisone and he began to feel better. However, he notes that this past weekend he began feeling the same way he had been before, with increased fatigue and fevers. 04/26/24 - Patient seen and examined at bedside this morning, remaining in the emergency department, patient's at bedside as well. No acute events overnight. He denies any shortness of breath or chest pain at time examination. Blood pressure continues to be marginal, 105/61, and improvement from yesterday afternoon. Continues to have good oxygen saturation on room air. 04/27/24 - Patient seen and examined at bedside this morning. No acute events overnight. Preliminary blood culture positive for E. coli, with no resistance genes detected. Per the pharmacist, ceftriaxone is the appropriate treatment for the organism identified. He is to receive cardiac catheterization early this afternoon. He has no acute complaints at this time. 04/28/24 - Patient seen and examined at bedside this morning. No acute events overnight. Final urine culture noted to be negative. He underwent cardiac catheterization yesterday which no stents were placed and showed normal coronary arteries, preserved left ventricular systolic function and a normal LVEDP. He is waiting to be seen by urology. Cardiology consider him medically stable for discharge, plan is to discharge tomorrow following evaluation by urology. 04/29/24 - Patient seen and examined at bedside this morning. No acute events overnight. He is scheduled to undergo surgery for his urethral stricture with Dr. Marie. He reports feeling well without any acute complaints at this time. 04/30/24 - Patient seen and examined at bedside this morning. No acute events overnight. He underwent surgery with Dr. Marie yesterday and reports feeling well. Holden catheter is currently replaced. Plan is for him to have the Holden catheter removed early tomorrow morning to further evaluate after that. He states that he is otherwise feeling well and has no current complaints. REVIEW OF SYSTEMS: Pertinent positives and negatives noted in HPI. Physical Exam: General: nontoxic, no distress. Derm: warm, dry, intact Head: atraumatic, normocephalic, symmetric Eyes: EOMI, anicteric sclera Mouth: no lip lesion, mucus membranes moist Cardiovascular: S1 S2 reg, no murmur, rubs, or gallops Lungs: CTA bilateral, no rales, no accessory muscle use Abdominal: soft, non-tender to palpataion, no appreciable organomegaly Extremities: no gross muscle atrophy, no edema, no contractures Neuro: Alert, Oriented, CNII-XII grossly intact, gait normal Psych: well appearing, appropriate affect Data Received Today: Labs: WBCs 10.1, hemoglobin 10.8, hematocrit 34.6, platelet 222; sodium 139, potassium 4.1, chloride 108, bicarb 23, BUN 10, creatinine 0.68, calcium 8.9, total bilirubin 0.6, AST 47, ALT 74 Imagining: No new imaging Assessment and plan 48-year-old man with PMH of autism panic attacks, had a panic attack earlier this morning with associated sharp chest pain, shortness of breath and dizziness. He describes the chest pain as being a sharp pain that is centrally located without radiation. He notes the pain having been 910/10 in intensity. Additionally, he endorses 2-day history of elevated temperature, with Tmax being 101 F, and "not feeling well". #Acute NSTEMI, type I versus type II #Possible new onset HFrEF (echocardiogram 04/25/24 showed EF 35-40% v left ventriculogram showed normal left ventricle size and systolic function with an ejection fraction of 50-55%) #History of panic attacks -left ventriculogram showed normal left ventricle size and systolic function with an ejection fraction of 50-55% -Continue with aspirin 81 mg daily, continue Lipitor 40 mg nightly -Cardiac monitoring -Supplemental oxygen as needed -Cardiology consulted -Continue to hold home antihypertensives #Severe sepsis secondary to likely atypical pneumonia #Leukocytosis of unknown origin with neutrophilic predominance, atypical pneumonia v dehydration #Anion gap metabolic acidosis #Acute kidney injury, resolved #Hypokalemia, resolved #Lactic acidosis, resolved #Transaminitis #Elevated D-dimer -Continue on Zithromax IV 500 mg (day 4) and Rocephin IV 2 g daily (day 4) -Final urine culture negative -Sputum culture pending -Legionella negative -0.9% 75 cc/h -Continue monitor CBC and CMP #History of urethral stricture -He is scheduled to undergo repair of his urethral stricture with Dr. Marie today -Holden catheter currently in place, plan is to remove early tomorrow morning and evaluate ability to to make urine DVT ppx: Lovenox 40 mg subcu daily Code status: Full code F: 0.9% 75 cc/h E: Replete as needed N: Heart healthy diet A: Ambulatory Anticipated discharge place: Home Anticipated discharge time: Tomorrow Dictation was produced using app[employer] dictation software. please excuse any grammatical, word or spelling errors. I have seen and evaluated the patient today. Discussed with the resident and agree with the residents finding and plan as documented in the resident's note. Changes highlighted in blue font. Objective - Vital Signs Vital signs: Vital Signs Temp 97.6 F 04/30/24 08:45 Pulse 92 04/30/24 08:58 Resp 18 04/30/24 08:58 BP 153/77 04/30/24 08:45 Pulse Ox 99 04/30/24 08:45 FiO2 Intake & Output 04/29/24 04/30/24 04/30/24 18:59 06:59 18:59 Intake Total 400 118 Output Total 700 2950 Balance -300 -2950 118 Weight 93.4 kg Intake: IV 400 Oral 118 Output: Urine 700 2950 Estimated Blood Loss 0 Other: Voiding Method Toilet Indwelling Catheter Indwelling Catheter - Labs CBC & Chem 7: 04/30/24 05:57 04/30/24 05:57 Labs: Abnormal Lab Results - Last 24 Hours (Table) 04/30/24 04/30/24 Range/Units 05:57 05:57 RBC 3.80 L (4.30-5.90) m/uL Hgb 10.8 L (13.0-17.5) gm/dL Hct 34.6 L (39.0-53.0) % Neutrophils # 8.3 H (1.3-7.7) k/uL Chloride 108 H (98-107) mmol/L Glucose 119 H (74-99) mg/dL ALT 74 H (4-49) U/L Total Protein 5.8 L (6.3-8.2) g/dL Albumin 3.3 L (3.5-5.0) g/dL
[2024-04-30] MEDS: ENOXAPARIN 40 MG/0.4 ML SYRINGE SQ SCH (13:15)
--- NOTE | 2024-04-30 13:28 | P.PN ---
Subjective HISTORY OF PRESENT ILLNESS: This is a 48-year-old male with a past medical history significant for hypertension, obesity, and anxiety. Patient not follow with a management services technician. We have been asked to see the patient in consultation for elevated troponins. Patient examined at the bedside in the emergency room. Patient states this morning he had a panic attack. He states shortly after this he began to have chest pain in the middle of his chest that felt like a stabbing sensation. He states the pain was in the middle of his chest and also on the right side of his chest. He states the pain lasted for about 15 minutes and then subsided. He states that he was not doing anything exertionally related at that time. He denies having any previous episodes of chest pain in the past. The patient does report that he has been feeling ill over the past week. He states that he went to his PCP office last Thursday and was diagnosed with an upper respiratory infection and was prescribed steroids and antibiotics. He states that he was starting to feel little bit better until this weekend when he started to feel worse again. He does report having a fever at home. According to EMS he had 101.0 temperature and route to the hospital. He continues to have a low-grade fever of 99.9. Patient is also hypotensive with a systolic blood pressure in the 80s90s. DIAGNOSTICS: - EKG reveals sinus tachycardia with T wave inversions inferiorly. - Chest xray negative for acute process. - Chest CTA: Negative for pulmonary embolism. Minimal dependent groundglass opacity/atelectasis. Correlate for possible atypical pneumonia. - Laboratory data: WBC 26.3. Hemoglobin 14.1. Platelet count 171. Sodium 138. Potassium 3.2. BUN 27. Creatinine 1.49. Lactic acid 2.7. Troponin 1.310. - Current home cardiac medications include lisinopril 20 mg daily and amlodipine 5 mg daily - No previous echocardiogram, stress test, or cardiac catheterization available in EMR for review 04/26/2024 Patient examined this morning in the emergency room. Patient's is at the bedside. Patient states he feels weak this morning. He states he has been sneezing and coughing a lot. He denies shortness of breath. He denies any chest pain at the time of examination. He remains on IV heparin. Troponins resulted at 1.310. 1.170. 0.859. 0.804. Blood pressures this morning remain marginal. 04/28/2024 Patient is s/p cardiac catheterization with Dr. Love revealing normal coronary arteries, normal LVEDP and preserved left ventricular systolic function. Patient seen this afternoon. Patient is sitting up in the chair. He denies any chest pain or pressure. He continues to report frequent coughing. He states that he feels tired and does not have much energy currently. Vital signs are stable. Telemetry reveals sinus mechanism 04/29/2024 Patient examined at the bedside. Patient denies chest pain or pressure. Denies shortness of breath. Patient does report having some anxiety today. Patient has been up ambulating without difficulty. Vital signs are stable. Blood pressure is elevated with a systolic between [id number]. He is maintaining sinus mechanism on telemetry. Patient was evaluated by urology and is scheduled for to undergo urethral dilation today. 04/30/2024 Patient examined this morning the bedside. Patient is status post cystoscopy with urethral dilation. Patient currently has indwelling urinary catheter with plans for removal tomorrow. Patient denies any chest pain or pressure. He denies shortness of breath. Blood pressure this morning elevated at 153/77. PHYSICAL EXAM: VITAL SIGNS: Reviewed. GENERAL: Well-developed in no acute distress. HEENT: Head is normocephalic. Pupils are equal, round. Sclerae anicteric. Mucous membranes of the mouth are moist. Neck supple. No JVD or thyromegaly LUNGS: Respirations even and unlabored. Lungs are clear to auscultation. HEART: Regular rate and rhythm. S1 and S2 heard. ABDOMEN: Soft. Nondistended. Nontender. EXTREMITIES: Normal range of motion. No clubbing or cyanosis. Peripheral pulses intact. No lower extremity edema NEUROLOGIC: Awake and alert. Oriented x 3. ASSESSMENT: Elevated troponins, Type II KS, status post cardiac cath revealing normal coronary arteries Recent upper respiratory infection E. coli bacteremia Sepsis with leukocytosis, fever, and hypotension Acute kidney injury, resolved Elevated D-dimer, CTA negative for pulmonary embolism History of hypertension History of urethral stricture status post cystoscopy with urethral dilation PLAN: Change lisinopril to 20 mg daily Resume home dose of amlodipine 5 mg daily Continue additional current cardiac medications Patient is currently stable for discharge from a cardiac standpoint Patient to follow-up postdischarge with Dr. Love Nurse practitioner note has been reviewed by physician. Signing provider agrees with the documented findings, assessment, and plan of care documented by SPORTS TEACHER as a scribe. Objective - Vital Signs Vital signs: Vital Signs Temp 97.6 F 04/30/24 08:45 Pulse 92 04/30/24 08:58 Resp 18 04/30/24 08:58 BP 153/77 04/30/24 08:45 Pulse Ox 99 04/30/24 08:45 FiO2 Intake & Output 04/29/24 04/30/24 04/30/24 18:59 06:59 18:59 Intake Total 400 118 Output Total 700 2950 Balance -300 -2950 118 Weight 93.4 kg Intake: IV 400 Oral 118 Output: Urine 700 2950 Estimated Blood Loss 0 Other: Voiding Method Toilet Indwelling Catheter Indwelling Catheter - Labs CBC & Chem 7: 04/30/24 05:57 04/30/24 05:57 Labs: Abnormal Lab Results - Last 24 Hours (Table) 04/30/24 04/30/24 Range/Units 05:57 05:57 RBC 3.80 L (4.30-5.90) m/uL Hgb 10.8 L (13.0-17.5) gm/dL Hct 34.6 L (39.0-53.0) % Neutrophils # 8.3 H (1.3-7.7) k/uL Chloride 108 H (98-107) mmol/L Glucose 119 H (74-99) mg/dL ALT 74 H (4-49) U/L Total Protein 5.8 L (6.3-8.2) g/dL Albumin 3.3 L (3.5-5.0) g/dL
--- NOTE | 2024-04-30 14:37 | P.PN ---
Subjective Progress Note Date: 04/30/24 Patient is a 48-year-old male with past medical history significant for hypertension, urethral stricture with previous dilation. His primary care provider is Dr. Garvin. Patient presents emergency department yesterday afternoon complaining of substernal chest pain, diaphoresis, nausea and vomiting. Chest pain, severe, nonradiating, reported lasting 10 to 15 minutes. He did take 4 baby aspirin at home. His is at bedside, and states that he did get confused and pulled down the shower curtain at home. Patient believes he was having a panic attack. Of note, patient reportedly recently treated for URI by his PCP 1 to 2 weeks ago, given a course of amoxicillin and prednisone burst taper. States his symptoms initially improved and then worsened following completion of medications. Reportedly, having intermittent fevers, cough with occasional clear phlegm production. Denies purulent sputum, hemoptysis. Denies any abdominal pain. Denies any diarrhea. Appetite has been fair. Viral screen done at our facility negative for influenza A/B, COVID, RSV. Workup in the emergency department including a chest CTA which did not show any filling defects consistent with pulmonary embolism. Very minimal dependent groundglass opacities or atelectasis. No pleural effusions or pneumothoraces. CBC remarkable for leukocytosis with a WBC count of 26.3, hemoglobin 14.1, platelets 171. D-dimer was 7.6. CMP: Sodium 138, potassium 3.2, chloride 106, serum bicarb 15, BUN 27, creatinine 1.49, glucose 160. NT proBNP elevated at 2040. Troponins were elevated at 1.3, 1.17, and 0.8 respectively. EKG: Normal sinus rhythm, rate 100 bpm, T wave inversions in 3, aVF; no ST segment elevation or depressions. Patient was started on IV heparin per cardiology. Patient currently being evaluated in the emergency department. Resting comfortably in bed. His spouse is at bedside. Denies any further chest pain. Heparin continues per protocol. Denies heart palpitations, lightheadedness, syncopal events, orthopnea, PND, lower extremity edema. He is alert and oriented. Brain CT was done earlier and unremarkable for acute intracranial process. Did have low-grade temperature of 99.9 F. Empirically placed on antibiotics in the ED. UA remarkable for pyuria and rare bacteriuria. Blood pressure is marginal, did receive 2 L crystalloid fluid bolus in the ED. Current vital signs: Temperature 97.6 F, heart rate 70 bpm, blood pressure 87/59 mmHg, SpO2 97% on room air. 04/27/2024, seen the patient for a follow-up. The patient has improved considerably. The patient feels less short of breath. Afebrile. Hemodynamically stable and the patient is currently on room air oxygen with a 9 7% pulse ox. Meanwhile, the patient's procalcitonin level was considerably elevated at 28.9. Blood culture came back positive for E. coli and I suspect that this E. coli septicemia is related to a urinary source. The patient has had issues with urinary stricture in the past. Cardiac catheterization was also done and the patient was found to have normal coronaries, preserved LV function, normal left ventricular end-diastolic pressure. White cell count is currently down to 5.9 with a hemoglobin 11.3 and a platelet count of 115. BUN is 9 with a creatinine of 0.66 and sodium levels at 139. Hemodynamically stable. On 04/28/2024, the patient is being seen for a follow-up. Patient is feeling well. No new complaints. Remains on IV Rocephin. Urology consultation has been requested regarding his history of ureteral stricture. The white cell count is down to 6.6 with a hemoglobin 10.9 and a platelet count of 135. Electrolytes are all within normal limits. BUN 6 with a creatinine of 0.7. LFTs are mildly elevated. Procalcitonin level was as high as 28. He is on room air oxygen. No chest pain. Cardiac catheterization was completed and the patient has a normal coronaries On 04/29/2024, the patient is being seen for a follow-up. Doing well. Remains on IV Rocephin. The patient has no fever. White cell count is normalized down to 6.2. Hemoglobin is 10.9. Platelet count is at 148. Electrolytes are all within normal limits with a BUN of 7 and a creatinine of 0.6. On a separate note, the patient was evaluated by urology. The patient has a urethral stricture and the patient is going to undergo a urethral dilatation with cystoscopy to improve bladder emptying. At On 04/30/2024, the patient is doing well. No complaints. The patient underwent a urethral dilatation yesterday by urology and the patient also underwent a cystoscopy and the patient currently has a Holden catheter in place. No hematuria. Remains on IV Rocephin. Remains on room air oxygen. Afebrile. White cell count is at 10 with a hemoglobin 10.8 and a platelet count of 222. Electrolytes are normal. Renal function is also within normal limits. No altered mentation. No hemodynamic instability. No other complaints otherwise. Objective - Vital Signs Vital signs: Vital Signs Temp 97.6 F 04/30/24 08:45 Pulse 92 04/30/24 08:58 Resp 18 04/30/24 08:58 BP 153/77 04/30/24 08:45 Pulse Ox 99 04/30/24 08:45 FiO2 Intake & Output 04/29/24 04/30/24 04/30/24 18:59 06:59 18:59 Intake Total 400 118 Output Total 700 2950 Balance -300 -2950 118 Weight 93.4 kg Intake: IV 400 Oral 118 Output: Urine 700 2950 Estimated Blood Loss 0 Other: Voiding Method Toilet Indwelling Catheter Indwelling Catheter - Exam GENERAL EXAM: Alert, 48-year-old male, comfortable in no apparent distress. HEAD: Normocephalic and atraumatic EYES: Normal reaction of pupils, equal size. NOSE: Clear with pink turbinates. THROAT: No erythema or exudates. NECK: No masses, no JVD. CHEST: No chest wall deformity. LUNGS: Equal air entry with no crackles, wheeze, rhonchi or dullness. On room air. No conversational dyspnea or accessory muscle use.. CVS: S1 and S2 normal with soft grade 1 systolic murmur, regular rhythm. No ot her extra heart sounds ABDOMEN: No hepatosplenomegaly, active bowel sounds, no guarding or rigidity. SPINE: No scoliosis or deformity SKIN: No rashes CENTRAL NERVOUS SYSTEM: No focal deficits, tone is normal in all 4 extremities. EXTREMITIES: There is no peripheral edema, clubbing, or cyanosis. Peripheral pulses are intact. - Labs CBC & Chem 7: 04/30/24 05:57 04/30/24 05:57 Labs: Abnormal Lab Results - Last 24 Hours (Table) 04/30/24 04/30/24 Range/Units 05:57 05:57 RBC 3.80 L (4.30-5.90) m/uL Hgb 10.8 L (13.0-17.5) gm/dL Hct 34.6 L (39.0-53.0) % Neutrophils # 8.3 H (1.3-7.7) k/uL Chloride 108 H (98-107) mmol/L Glucose 119 H (74-99) mg/dL ALT 74 H (4-49) U/L Total Protein 5.8 L (6.3-8.2) g/dL Albumin 3.3 L (3.5-5.0) g/dL Assessment and Plan Assessment: E. coli sepsis, likely urinary source. Currently on IV Rocephin 2 g every 24 hours. The patient has abnormal UA. The patient also has previous history of urethral stricture that has required dilatation. Urology is on the case. Acute dyspnea, chest CTA unremarkable for filling defects consistent with pulmonary embolism, very minimal bibasilar groundglass opacity disease/atelectasis. No obvious focal infiltrates or definitive pneumonia. No significant shortness of breath for now. Elevated troponins probably demand type of myocardial ischemia type II second to underlying sepsis. Cardiac catheterization was done and the coronaries are within normal limits. Left-ventricular diastolic pressure is also within normal limits. Acute leukocytosis, improving Anion gap metabolic acidosis, improved Acute kidney injury,, improved Hypokalemia, replaced History of urethral stricture with previous dilation History of hypertension Obesity, with a BMI 31.5 kg/m Plan: The patient is status post urethral dilatation by urology Continue same treatment Clinically improving Continue Rocephin 2 g every 24 hours Cardiac catheterization results were noted Patient currently on room air oxygen White cell count is improving Renal function has normalized Clinically improving Will switch the patient to oral antibiotics time of discharge. Pulmonary critical care services will sign off. Anticipate discharge in the next 24 to 48 hours.
[2024-05-01 06:50] LABS: Basophils % (A) 0 %; Eosinophils # (A) 0.2 k/uL (0-0.7); Eosinophils % (A) 2 %; HCT 37.8 % (39.0-53.0); HGB 12.2 gm/dL (13.0-17.5); Lymphocytes # (A) 3.2 k/uL (1.0-4.8); Lymphocytes % (A) 34 %; MCH 28.9 pg (25.0-35.0); MCHC 32.3 g/dL (31.0-37.0); MCV 89.5 fL (80.0-100.0); Mean Platelet Volume 7.7; Monocytes # (A) 0.4 k/uL (0-1.0); Monocytes % (A) 5 %; Neutrophils # (A) 5.4 k/uL (1.3-7.7); Neutrophils % (A) 57 %; Platelet Count 296 k/uL (150-450); RBC 4.22 m/uL (4.30-5.90); RDW 13.9 % (11.5-15.5); WBC 9.5 k/uL (3.8-10.6)
[2024-05-01 07:02] LABS: ALT 67 U/L (4-49); AST 33 U/L (17-59); African American GFR (CKD) >90 (>60 ml/min/1.73 sqM); Albumin 3.6 g/dL (3.5-5.0); Alkaline Phosphatase 90 U/L (38-126); Anion Gap 7 mmol/L; Blood Urea Nitrogen 12 mg/dL (9-20); Calcium 9.2 mg/dL (8.4-10.2); Carbon Dioxide 28 mmol/L (22-30); Chloride 106 mmol/L (98-107); Glucose 96 mg/dL (74-99); Non-African American GFR(CKD) >90 (>60 ml/min/1.73 sqM); Potassium 4.1 mmol/L (3.5-5.1); Sodium 141 mmol/L (137-145); Total Bilirubin 0.7 mg/dL (0.2-1.3); Total Protein 6.3 g/dL (6.3-8.2)
[2024-05-01] MEDS: lisinopriL 20 MG TAB PO SCH (08:15)
--- NOTE | 2024-05-01 11:09 | P.PN ---
Subjective Progress Note Date: 05/01/24 Principal diagnosis: Urethral strictures, probable UTI The patient underwent cystoscopy with urethral dilation yesterday. He has no complaints this morning. The Holden catheter was removed this morning, and he states that he is voiding with an improved urinary stream. Objective - Vital Signs Vital signs: Vital Signs Temp 97.7 F 04/30/24 20:00 Pulse 73 04/30/24 23:39 Resp 17 04/30/24 23:39 BP 154/89 04/30/24 23:39 Pulse Ox 100 04/30/24 23:39 FiO2 Intake & Output 04/30/24 05/01/24 05/01/24 18:59 06:59 18:59 Intake Total 236 Output Total 1475 1400 Balance -1239 -1400 Weight 93.7 kg Intake: Oral 236 Output: Urine 1475 1400 Other: Voiding Method Indwelling Catheter Indwelling Catheter - Constitutional General appearance: Present: average body habitus, cooperative, no acute distress - Psychiatric Psychiatric: Present: A&O x's 3 - Labs CBC & Chem 7: 05/01/24 06:13 05/01/24 06:13 Labs: Abnormal Lab Results - Last 24 Hours (Table) 05/01/24 05/01/24 Range/Units 06:13 06:13 RBC 4.22 L (4.30-5.90) m/uL Hgb 12.2 L (13.0-17.5) gm/dL Hct 37.8 L (39.0-53.0) % ALT 67 H (4-49) U/L Assessment and Plan (1) Unspecified urethral stricture, male, meatal Current Visit: Yes Status: Acute Code(s): N35.911 - UNSPECIFIED URETHRAL STRICTURE, MALE, MEATAL SNOMED Code(s): [id number] Plan: Blood cultures have shown E. coli, and the patient is receiving ceftriaxone. He has undergone urethral dilation and reports an improved urinary stream. He is urologically stable for discharge. He will be referred to a reconstructive urologist as an outpatient to address his recurrent urethral stricture disease.
[2024-05-01] MEDS: ALPRAZolam 0.25 MG TAB PO PRN (11:14)
[2024-05-01] MEDS: METOPROLOL SUCCINATE (ER) 25 MG TAB.ER.24H PO SCH (12:04)
[2024-05-01] MEDS: lisinopriL 20 MG TAB PO STA (12:04)
--- NOTE | 2024-05-01 12:35 | P.PN ---
Subjective HISTORY OF PRESENT ILLNESS: This is a 48-year-old male with a past medical history significant for hypertension, obesity, and anxiety. Patient not follow with a facilitator. We have been asked to see the patient in consultation for elevated troponins. Patient examined at the bedside in the emergency room. Patient states this morning he had a panic attack. He states shortly after this he began to have chest pain in the middle of his chest that felt like a stabbing sensation. He states the pain was in the middle of his chest and also on the right side of his chest. He states the pain lasted for about 15 minutes and then subsided. He states that he was not doing anything exertionally related at that time. He denies having any previous episodes of chest pain in the past. The patient does report that he has been feeling ill over the past week. He states that he went to his PCP office last Thursday and was diagnosed with an upper respiratory infection and was prescribed steroids and antibiotics. He states that he was starting to feel little bit better until this weekend when he started to feel worse again. He does report having a fever at home. According to EMS he had 101.0 temperature and route to the hospital. He continues to have a low-grade fever of 99.9. Patient is also hypotensive with a systolic blood pressure in the 80s90s. DIAGNOSTICS: - EKG reveals sinus tachycardia with T wave inversions inferiorly. - Chest xray negative for acute process. - Chest CTA: Negative for pulmonary embolism. Minimal dependent groundglass opacity/atelectasis. Correlate for possible atypical pneumonia. - Laboratory data: WBC 26.3. Hemoglobin 14.1. Platelet count 171. Sodium 138. Potassium 3.2. BUN 27. Creatinine 1.49. Lactic acid 2.7. Troponin 1.310. - Current home cardiac medications include lisinopril 20 mg daily and amlodipine 5 mg daily - No previous echocardiogram, stress test, or cardiac catheterization available in EMR for review 04/26/2024 Patient examined this morning in the emergency room. Patient's is at the bedside. Patient states he feels weak this morning. He states he has been sneezing and coughing a lot. He denies shortness of breath. He denies any chest pain at the time of examination. He remains on IV heparin. Troponins resulted at 1.310. 1.170. 0.859. 0.804. Blood pressures this morning remain marginal. 04/28/2024 Patient is s/p cardiac catheterization with Dr. Love revealing normal coronary arteries, normal LVEDP and preserved left ventricular systolic function. Patient seen this afternoon. Patient is sitting up in the chair. He denies any chest pain or pressure. He continues to report frequent coughing. He states that he feels tired and does not have much energy currently. Vital signs are stable. Telemetry reveals sinus mechanism 04/29/2024 Patient examined at the bedside. Patient denies chest pain or pressure. Denies shortness of breath. Patient does report having some anxiety today. Patient has been up ambulating without difficulty. Vital signs are stable. Blood pressure is elevated with a systolic between [id number]. He is maintaining sinus mechanism on telemetry. Patient was evaluated by urology and is scheduled for to undergo urethral dilation today. 04/30/2024 Patient examined this morning the bedside. Patient is status post cystoscopy with urethral dilation. Patient currently has indwelling urinary catheter with plans for removal tomorrow. Patient denies any chest pain or pressure. He denies shortness of breath. Blood pressure this morning elevated at 153/77. 05/01/2024 Patient examined this morning at the bedside. Patient denies any chest pain or pressure. He denies any shortness of breath. Telemetry reveals sinus mechanism. Patient's blood pressures remain elevated with a systolic in the 80s. PHYSICAL EXAM: VITAL SIGNS: Reviewed. GENERAL: Well-developed in no acute distress. HEENT: Head is normocephalic. Pupils are equal, round. Sclerae anicteric. Mucous membranes of the mouth are moist. Neck supple. No JVD or thyromegaly LUNGS: Respirations even and unlabored. Lungs are clear to auscultation. HEART: Regular rate and rhythm. S1 and S2 heard. ABDOMEN: Soft. Nondistended. Nontender. EXTREMITIES: Normal range of motion. No clubbing or cyanosis. Peripheral pulses intact. No lower extremity edema NEUROLOGIC: Awake and alert. Oriented x 3. ASSESSMENT: Elevated troponins, Type II MS, status post cardiac cath revealing normal coronary arteries Recent upper respiratory infection E. coli bacteremia Sepsis with leukocytosis, fever, and hypotension Acute kidney injury, resolved Elevated D-dimer, CTA negative for pulmonary embolism History of hypertension History of urethral stricture status post cystoscopy with urethral dilation PLAN: Increase lisinopril to 40 mg daily. Given additional 20 mg now. Continue current dose of amlodipine Patient started on metoprolol succinate this morning per primary medicine Continue to monitor blood pressures If patient's blood pressures remain elevated tomorrow, add hydrochlorothiazide 25 mg daily Continue to monitor patient for an additional 24 hours. If his blood pressures improve anticipate discharge home tomorrow. Patient to follow-up postdischarge with Dr. Love Nurse practitioner note has been reviewed by physician. Signing provider agrees with the documented findings, assessment, and plan of care documented by AFTER SCHOOL COORDINATOR as a scribe. Objective - Vital Signs Vital signs: Vital Signs Temp 97.8 F 05/01/24 08:13 Pulse 80 05/01/24 11:10 Resp 18 05/01/24 11:10 BP 172/98 05/01/24 11:10 Pulse Ox 98 05/01/24 11:10 FiO2 Intake & Output 04/30/24 05/01/24 05/01/24 18:59 06:59 18:59 Intake Total 236 240 Output Total 1475 1400 Balance -1239 -1400 240 Weight 93.7 kg Intake: Oral 236 240 Output: Urine 1475 1400 Other: Voiding Method Indwelling Catheter Indwelling Catheter Indwelling Catheter - Labs CBC & Chem 7: 05/01/24 06:13 05/01/24 06:13 Labs: Abnormal Lab Results - Last 24 Hours (Table) 05/01/24 05/01/24 Range/Units 06:13 06:13 RBC 4.22 L (4.30-5.90) m/uL Hgb 12.2 L (13.0-17.5) gm/dL Hct 37.8 L (39.0-53.0) % ALT 67 H (4-49) U/L
--- NOTE | 2024-05-01 16:16 | P.PN ---
Subjective Progress Note Date: 05/01/24 Patient was seen and examined. No acute events overnight. Holden catheter discontinued by Urology. Voiding freely. BP 184/98 this morning. CBC and CMP significant for RBC 4.22, Hg 12.2, Hct 37.8, ALT 67. General: non toxic, no distress, appears at stated age Derm: warm, dry Head: atraumatic, normocephalic, symmetric Eyes: EOMI, no lid lag, anicteric sclera Mouth: no lip lesion, mucus membranes moist Cardiovascular: S1S2 reg, no murmur Lungs: CTA bilateral, no rhonchi, no rales , no accessory muscle use Ext: no gross muscle atrophy, no edema, no contractures Neuro: no focal neuro deficits Psych: Alert, oriented, appropriate affect Based on my assessment of this patient, this patient meets a high complexity level of care. Sepsis due to E. coli bacteremia: BCx E. coli. Continue Rocephin 2g IV QD. UCx neg. Discharge on Cefdinir 300 mg PO BID to complete a total of 14 days. Uretheral stricture likely contributing to above: Underwent cystoscopy with urethral dilation with Dr. Marie on 04/29. Hypertensive urgency: Continue Amlodipine 5 mg PO QD. Lisinopril increased to 40 mg PO QD. + Metoprolol 25 mg PO QD. Telemetry monitoring. Cardiology on board. Type II NSTEMI: Cardiac cath 04/27 normal coronaries. ASA 81 mg PO QD. Lipitor 40 mg PO QHS. CODE STATUS: FULL CODE. DVT Prophylaxis: Lovenox SQ GI Prophylaxis: Designated medical POA if patient is not able to make medical decisions for the mselves: I have reviewed the following pmo consultant notes: Urology, Cardiology I have reviewed the results of the following tests: CBC, CMP. I have ordered the following tests: I have discussed the care of this patient with the following independent historian: RN. I have independently interpreted the following test below: I have discussed the management of this patient with the following physician: Objective - Vital Signs Vital signs: Vital Signs Temp 97.9 F 05/01/24 15:43 Pulse 67 05/01/24 15:43 Resp 18 05/01/24 15:43 BP 186/96 05/01/24 15:43 Pulse Ox 100 05/01/24 15:43 FiO2 Intake & Output 04/30/24 05/01/24 05/01/24 18:59 06:59 18:59 Intake Total 236 358 Output Total 1475 1400 Balance -1239 -1400 358 Weight 93.7 kg Intake: Oral 236 358 Output: Urine 1475 1400 Other: Voiding Method Indwelling Catheter Indwelling Catheter Indwelling Catheter - Labs CBC & Chem 7: 05/01/24 06:13 05/01/24 06:13 Labs: Abnormal Lab Results - Last 24 Hours (Table) 05/01/24 05/01/24 Range/Units 06:13 06:13 RBC 4.22 L (4.30-5.90) m/uL Hgb 12.2 L (13.0-17.5) gm/dL Hct 37.8 L (39.0-53.0) % ALT 67 H (4-49) U/L
[2024-05-01] MEDS: hydroCHLOROthiazide 25 MG TAB PO SCH (16:32)
[2024-05-02] MEDS: lisinopriL 20 MG TAB PO SCH (09:02)
[2024-05-02] MEDS ORDERED: SPIRONOLACTONE 25 MG TAB PO SCH (11:30)
[2024-05-02] MEDS: FUROSEMIDE 10 MG/ML 2 ML VIAL IV STA (11:59)
[2024-05-02] MEDS: SPIRONOLACTONE 25 MG TAB PO SCH (12:01)
--- NOTE | 2024-05-02 13:47 | P.PN ---
Subjective Progress Note Date: 05/02/24 HISTORY OF PRESENT ILLNESS: This is a 48-year-old male with a past medical history significant for hype rtension, obesity, and anxiety. Patient not follow with a buffer operator. We have been asked to see the patient in consultation for elevated troponins. Patient examined at the bedside in the emergency room. Patient states this morning he had a panic attack. He states shortly after this he began to have chest pain in the middle of his chest that felt like a stabbing sensation. He states the pain was in the middle of his chest and also on the right side of his chest. He states the pain lasted for about 15 minutes and then subsided. He states that he was not doing anything exertionally related at that time. He denies having any previous episodes of chest pain in the past. The patient does report that he has been feeling ill over the past week. He states that he went to his PCP office last Thursday and was diagnosed with an upper respiratory infection and was prescribed steroids and antibiotics. He states that he was starting to feel little bit better until this weekend when he started to feel worse again. He does report having a fever at home. According to EMS he had 101.0 temperature and route to the hospital. He continues to have a low-grade fever of 99.9. Patient is also hypotensive with a systolic blood pressure in the 80s90s. DIAGNOSTICS: - EKG reveals sinus tachycardia with T wave inversions inferiorly. - Chest xray negative for acute process. - Chest CTA: Negative for pulmonary embolism. Minimal dependent groundglass opacity/atelectasis. Correlate for possible atypical pneumonia. - Laboratory data: WBC 26.3. Hemoglobin 14.1. Platelet count 171. Sodium 138. Potassium 3.2. BUN 27. Creatinine 1.49. Lactic acid 2.7. Troponin 1.310. - Current home cardiac medications include lisinopril 20 mg daily and amlodipine 5 mg daily - No previous echocardiogram, stress test, or cardiac catheterization available in EMR for review 04/26/2024 Patient examined this morning in the emergency room. Patient's is at the bedside. Patient states he feels weak this morning. He states he has been sneezing and coughing a lot. He denies shortness of breath. He denies any chest pain at the time of examination. He remains on IV heparin. Troponins resulted at 1.310. 1.170. 0.859. 0.804. Blood pressures this morning remain marginal. 04/28/2024 Patient is s/p cardiac catheterization with Dr. Love revealing normal coronary arteries, normal LVEDP and preserved left ventricular systolic function. Patient seen this afternoon. Patient is sitting up in the chair. He denies any chest pain or pressure. He continues to report frequent coughing. He states that he feels tired and does not have much energy currently. Vital signs are stable. Telemetry reveals sinus mechanism 04/29/2024 Patient examined at the bedside. Patient denies chest pain or pressure. Denies shortness of breath. Patient does report having some anxiety today. Patient has been up ambulating without difficulty. Vital signs are stable. Blood pressure is elevated with a systolic between [id number]. He is maintaining sinus mechanism on telemetry. Patient was evaluated by urology and is scheduled for to undergo urethral dilation today. 04/30/2024 Patient examined this morning the bedside. Patient is status post cystoscopy with urethral dilation. Patient currently has indwelling urinary catheter with plans for removal tomorrow. Patient denies any chest pain or pressure. He denies shortness of breath. Blood pressure this morning elevated at 153/77. 05/01/2024 Patient examined this morning at the bedside. Patient denies any chest pain or pressure. He denies any shortness of breath. Telemetry reveals sinus mechanism. Patient's blood pressures remain elevated with a systolic in the 80s. 05/02 Patient seen and examined. Discussed the results of the echocardiogram with the patient. EF was 35 to 40%, technically difficult study, poorly visualized right ventricle, mild pulmonary hypertension. Blood pressure 173/103, heart rate 70, pulse ox 100%. Yesterday, lisinopril was increased to 40 mg daily, hydrochlorothiazide added and he was continued on amlodipine. He was also recently started on metoprolol succinate. PHYSICAL EXAM: VITAL SIGNS: Reviewed. GENERAL: Well-developed in no acute distress. HEENT: Head is normocephalic. Pupils are equal, round. Sclerae anicteric. Mucous membranes of the mouth are moist. Neck supple. No JVD or thyromegaly LUNGS: Respirations even and unlabored. Lungs are clear to auscultation. HEART: Regular rate and rhythm. S1 and S2 heard. ABDOMEN: Soft. Nondistended. Nontender. EXTREMITIES: No clubbing or cyanosis. Peripheral pulses intact. No lower extremity edema NEUROLOGIC: Awake and alert. Oriented x 3. ASSESSMENT: Elevated troponins, Type II CA, status post cardiac cath revealing normal coronary arteries Recent upper respiratory infection E. coli bacteremia Sepsis with leukocytosis, fever, and hypotension Acute kidney injury, resolved Nonischemic cardiomyopathy with EF of 35-40% Elevated D-dimer, CTA negative for pulmonary embolism History of hypertension History of urethral stricture status post cystoscopy with urethral dilation PLAN: Continue amlodipine 5 mg daily, hydrochlorothiazide 25 mg daily, lisinopril to 40 mg daily, Toprol-XL 25 mg daily Add Aldactone 50 mg daily Continue to monitor blood pressures If patient's blood pressure is down in the 150 range, he is cleared for dischar ge from cardiology perspective. Patient to follow-up postdischarge with Dr. Love Nurse practitioner note has been reviewed by physician. Signing provider agrees with the documented findings, assessment, and plan of care documented by TENNIS COACH as a scribe. Objective - Vital Signs Vital signs: Vital Signs Temp 97.8 F 05/02/24 08:00 Pulse 70 05/02/24 11:11 Resp 16 05/02/24 08:00 BP 173/103 05/02/24 11:11 Pulse Ox 100 05/02/24 11:11 FiO2 Intake & Output 05/01/24 05/02/24 05/02/24 18:59 06:59 18:59 Intake Total 358 Balance 358 Intake: Oral 358 Other: Voiding Method Indwelling Catheter Indwelling Catheter Indwelling Catheter # Voids 3 1 - Labs CBC & Chem 7: 05/01/24 06:13 05/01/24 06:13
--- NOTE | 2024-05-02 15:15 | P.PN ---
Subjective Progress Note Date: 05/02/24 Patient was seen and examined. No acute events overnight. Voiding freely. BP 181/100 this morning. Cardiology has added Aldactone 50 mg PO QD. General: non toxic, no distress, appears at stated age Derm: warm, dry Head: atraumatic, normocephalic, symmetric Eyes: EOMI, no lid lag, anicteric sclera Mouth: no lip lesion, mucus membranes moist Cardiovascular: S1S2 reg, no murmur Lungs: CTA bilateral, no rhonchi, no rales , no accessory muscle use Ext: no gross muscle atrophy, no edema, no contractures Neuro: no focal neuro deficits Psych: Alert, oriented, appropriate affect Based on my assessment of this patient, this patient meets a high complexity level of care. Sepsis due to E. coli bacteremia: BCx E. coli. Continue Rocephin 2g IV QD. UCx neg. Discharge on Cefdinir 300 mg PO BID to complete a total of 14 days. Uretheral stricture likely contributing to above: Underwent cystoscopy with uret hral dilation with Dr. Marie on 04/29. Hypertensive urgency: Amlodipine 5 mg PO QD. Lisinopril 40 mg PO QD. Metoprolol 25 mg PO QD. + Aldactone 50 mg PO QD. Telemetry monitoring. Cardiology on board. Type II NSTEMI: Cardiac cath 04/27 normal coronaries. ASA 81 mg PO QD. Lipitor 40 mg PO QHS. CODE STATUS: FULL CODE. DVT Prophylaxis: Lovenox SQ GI Prophylaxis: Designated medical POA if patient is not able to make medical decisions for themselves: I have reviewed the following healthcare network consultant notes: Cardiology I have reviewed the results of the following tests: I have ordered the following tests: I have discussed the care of this patient with the following independent historian: DARIELA. I have independently interpreted the following test below: I have discussed the management of this patient with the following physician: Objective - Vital Signs Vital signs: Vital Signs Temp 97.8 F 05/02/24 08:00 Pulse 70 05/02/24 11:11 Resp 16 05/02/24 08:00 BP 173/103 05/02/24 11:11 Pulse Ox 100 05/02/24 11:11 FiO2 Intake & Output 05/01/24 05/02/24 05/02/24 18:59 06:59 18:59 Intake Total 358 118 Balance 358 118 Intake: Oral 358 118 Other: Voiding Method Indwelling Catheter Indwelling Catheter Indwelling Catheter # Voids 3 1 - Labs CBC & Chem 7: 05/01/24 06:13 05/01/24 06:13
--- NOTE | 2024-05-02 16:55 | P.PN ---
Subjective Progress Note Date: 05/02/24 Patient is a 48-year-old male with past medical history significant for hypertension, urethral stricture with previous dilation. His primary care provider is Dr. Garvin. Patient presents emergency department yesterday afternoon complaining of substernal chest pain, diaphoresis, nausea and vomiting. Chest pain, severe, nonradiating, reported lasting 10 to 15 minutes. He did take 4 baby aspirin at home. His is at bedside, and states that he did get confused and pulled down the shower curtain at home. Patient believes he was having a panic attack. Of note, patient reportedly recently treated for URI by his PCP 1 to 2 weeks ago, given a course of amoxicillin and prednisone burst taper. States his symptoms initially improved and then worsened following completion of medications. Reportedly, having intermittent fevers, cough with occasional clear phlegm production. Denies purulent sputum, hemoptysis. Denies any abdominal pain. Denies any diarrhea. Appetite has been fair. Viral screen done at our facility negative for influenza A/B, COVID, RSV. Workup in the emergency department including a chest CTA which did not show any filling defects consistent with pulmonary embolism. Very minimal dependent groundglass opacities or atelectasis. No pleural effusions or pneumothoraces. CBC remarkable for leukocytosis with a WBC count of 26.3, hemoglobin 14.1, platelets 171. D-dimer was 7.6. CMP: Sodium 138, potassium 3.2, chloride 106, serum bicarb 15, BUN 27, creatinine 1.49, glucose 160. NT proBNP elevated at 2040. Troponins were elevated at 1.3, 1.17, and 0.8 respectively. EKG: Normal sinus rhythm, rate 100 bpm, T wave inversions in 3, aVF; no ST segment elevation or depressions. Patient was started on IV heparin per cardiology. Patient currently being evaluated in the emergency department. Resting comfortably in bed. His spouse is at bedside. Denies any further chest pain. Heparin continues per protocol. Denies heart palpitations, lightheadedness, syncopal events, orthopnea, PND, lower extremity edema. He is alert and oriented. Brain CT was done earlier and unremarkable for acute intracranial process. Did have low-grade temperature of 99.9 F. Empirically placed on antibiotics in the ED. UA remarkable for pyuria and rare bacteriuria. Blood pressure is marginal, did receive 2 L crystalloid fluid bolus in the ED. Current vital signs: Temperature 97.6 F, heart rate 70 bpm, blood pressure 87/59 mmHg, SpO2 97% on room air. 04/27/2024, seen the patient for a follow-up. The patient has improved considerably. The patient feels less short of breath. Afebrile. Hemodynamically stable and the patient is currently on room air oxygen with a 97 % pulse ox. Meanwhile, the patient's procalcitonin level was considerably elevated at 28.9. Blood culture came back positive for E. coli and I suspect that this E. coli septicemia is related to a urinary source. The patient has had issues with urinary stricture in the past. Cardiac catheterization was also done and the patient was found to have normal coronaries, preserved LV function, normal left ventricular end-diastolic pressure. White cell count is currently down to 5.9 with a hemoglobin 11.3 and a platelet count of 115. BUN is 9 with a creatinine of 0.66 and sodium levels at 139. Hemodynamically stable. On 04/28/2024, the patient is being seen for a follow-up. Patient is feeling well. No new complaints. Remains on IV Rocephin. Urology consultation has been requested regarding his history of ureteral stricture. The white cell count is down to 6.6 with a hemoglobin 10.9 and a platelet count of 135. Electrolytes are all within normal limits. BUN 6 with a creatinine of 0.7. LFTs are mildly elevated. Procalcitonin level was as high as 28. He is on room air oxygen. No chest pain. Cardiac catheterization was completed and the patient has a normal coronaries On 04/29/2024, the patient is being seen for a follow-up. Doing well. Remains on IV Rocephin. The patient has no fever. White cell count is normalized down to 6.2. Hemoglobin is 10.9. Platelet count is at 148. Electrolytes are all within normal limits with a BUN of 7 and a creatinine of 0.6. On a separate note, the patient was evaluated by urology. The patient has a urethral stricture and the patient is going to undergo a urethral dilatation with cystoscopy to improve bladder emptying. At On 04/30/2024, the patient is doing well. No complaints. The patient underwent a urethral dilatation yesterday by urology and the patient also underwent a cystoscopy and the patient currently has a Holden catheter in place. No hematuria. Remains on IV Rocephin. Remains on room air oxygen. Afebrile. White cell count is at 10 with a hemoglobin 10.8 and a platelet count of 222. Electrolytes are normal. Renal function is also within normal limits. No altered mentation. No hemodynamic instability. No other complaints otherwise. The patient is seen today May 02, 2024 in follow-up on the selective care unit. He is currently sitting up in a chair at the bedside. Awake and alert in no acute distress. Maintaining good O2 saturations in the 90s on room air. He has been having issues with hypertension. His medications have been adjusted. Current blood pressure 156/86 with a mean of 109. He is afebrile. Blood cultures were positive for E. coli. Urine culture revealed no growth. He remains on ceftriaxone. Lovenox for DVT prophylaxis. Objective - Vital Signs Vital signs: Vital Signs Temp 97.8 F 05/02/24 08:00 Pulse 88 05/02/24 16:00 Resp 16 05/02/24 08:00 BP 156/86 05/02/24 16:00 Pulse Ox 100 05/02/24 16:00 FiO2 Intake & Output 05/01/24 05/02/24 05/02/24 18:59 06:59 18:59 Intake Total 358 118 Balance 358 118 Intake: Oral 358 118 Other: Voiding Method Indwelling Catheter Indwelling Catheter Indwelling Catheter # Voids 3 1 - Exam GENERAL EXAM: Alert, active, 48-year-old male, on room air, comfortable in no apparent distress. HEAD: Normocephalic. EYES: Normal reaction of pupils, equal size. NOSE: Clear with pink turbinates. THROAT: No erythema or exudates. NECK: No masses, no JVD. CHEST: No chest wall deformity. LUNGS: Equal air entry with no crackles, wheeze, rhonchi or dullness. CVS: S1 and S2 normal with no audible murmur, regular rhythm. ABDOMEN: No hepatosplenomegaly, normal bowel sounds, no guarding or rigidity. SPINE: No scoliosis or deformity SKIN: No rashes CENTRAL NERVOUS SYSTEM: No focal deficits, tone is normal in all 4 extremities. EXTREMITIES: There is no peripheral edema. No clubbing, no cyanosis. Peripheral pulses are intact. - Labs CBC & Chem 7: 05/01/24 06:13 05/01/24 06:13 Assessment and Plan Assessment: E. coli sepsis, likely urinary source. Currently on IV Rocephin 2 g every 24 hours. The patient has abnormal UA. The patient also has previous history of urethral stricture that has required dilatation. Urology is on the case. Acute dyspnea, chest CTA unremarkable for filling defects consistent with pulmonary embolism, very minimal bibasilar groundglass opacity disease/atelectasis. No obvious focal infiltrates or definitive pneumonia. No significant shortness of breath for now. Elevated troponins probably demand type of myocardial ischemia type II second to underlying sepsis. Cardiac catheterization was done and the coronaries are within normal limits. Left-ventricular diastolic pressure is also within normal limits. Acute leukocytosis, recovered Anion gap metabolic acidosis, recovered Acute kidney injury, recovered Hypokalemia, replaced and improved Hypertension, improving History of urethral stricture with previous dilation Obesity, with a BMI 31.5 kg/m Plan: The patient was seen and evaluated Labs and medications reviewed Remains on ceftriaxone Blood pressure medications adjusted Stable and on room air Probable discharge in the a.m. I have personally seen and examined the patient, performed the documentation and the assessment and plan as written. Number of minutes spent on the visit: 10 Dictation was produced using [employer] dictation software. Please excuse any grammatical, word or spelling errors.
[2024-05-02] MEDS: METOPROLOL SUCCINATE (ER) 25 MG TAB.ER.24H PO STA (21:01)
[2024-05-02] MEDS: amLODIPine 5 MG TAB PO STA (21:01)
[2024-05-03 08:59] VITALS: BMI 29.7
[2024-05-03] MEDS: diphenhydrAMINE 25 MG CAP PO PRN (08:59)
[2024-05-03] MEDS: HYDROCORTISONE 1% CREAM 30 GM TUBE TOPICAL PRN (09:07)
[2024-05-03 10:44] VITALS: RESP 16
--- NOTE | 2024-05-03 12:41 | P.PN ---
Subjective Progress Note Date: 05/03/24 HISTORY OF PRESENT ILLNESS: This is a 48-year-old male with a past medical history significant for hype rtension, obesity, and anxiety. 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 We have been asked to see the patient in consultation for elevated troponins. Patient examined at the bedside in the emergency room. Patient states this morning he had a panic attack. He states shortly after this he began to have chest pain in the middle of his chest that felt like a stabbing sensation. He states the pain was in the middle of his chest and also on the right side of his chest. He states the pain lasted for about 15 minutes and then subsided. He states that he was not doing anything exertionally related at that time. He denies having any previous episodes of chest pain in the past. The patient does report that he has been feeling ill over the past week. He states that he went to his PCP office last Thursday and was diagnosed with an upper respiratory infection and was prescribed steroids and antibiotics. He states that he was starting to feel little bit better until this weekend when he started to feel worse again. He does report having a fever at home. According to EMS he had 101.0 temperature and route to the hospital. He continues to have a low-grade fever of 99.9. Patient is also hypotensive with a systolic blood pressure in the 80s90s. DIAGNOSTICS: - EKG reveals sinus tachycardia with T wave inversions inferiorly. - Chest xray negative for acute process. - Chest CTA: Negative for pulmonary embolism. Minimal dependent groundglass opacity/atelectasis. Correlate for possible atypical pneumonia. - Laboratory data: WBC 26.3. Hemoglobin 14.1. Platelet count 171. Sodium 138. Potassium 3.2. BUN 27. Creatinine 1.49. Lactic acid 2.7. Troponin 1.310. - Current home cardiac medications include lisinopril 20 mg daily and amlodipine 5 mg daily - No previous echocardiogram, stress test, or cardiac catheterization available in EMR for review 04/26/2024 Patient examined this morning in the emergency room. Patient's is at the bedside. Patient states he feels weak this morning. He states he has been sneezing and coughing a lot. He denies shortness of breath. He denies any chest pain at the time of examination. He remains on IV heparin. Troponins resulted at 1.310. 1.170. 0.859. 0.804. Blood pressures this morning remain marginal. 04/28/2024 Patient is s/p cardiac catheterization with Dr. Love revealing normal coronary arteries, normal LVEDP and preserved left ventricular systolic function. Patient seen this afternoon. Patient is sitting up in the chair. He denies any chest pain or pressure. He continues to report frequent coughing. He states that he feels tired and does not have much energy currently. Vital signs are stable. Telemetry reveals sinus mechanism 04/29/2024 Patient examined at the bedside. Patient denies chest pain or pressure. Denies shortness of breath. Patient does report having some anxiety today. Patient has been up ambulating without difficulty. Vital signs are stable. Blood pressure is elevated with a systolic between [id number]. He is maintaining sinus mechanism on telemetry. Patient was evaluated by urology and is scheduled for to undergo urethral dilation today. 04/30/2024 Patient examined this morning the bedside. Patient is status post cystoscopy with urethral dilation. Patient currently has indwelling urinary catheter with plans for removal tomorrow. Patient denies any chest pain or pressure. He denies shortness of breath. Blood pressure this morning elevated at 153/77. 05/01/2024 Patient examined this morning at the bedside. Patient denies any chest pain or pressure. He denies any shortness of breath. Telemetry reveals sinus mechanism. Patient's blood pressures remain elevated with a systolic in the 80s. 05/02 Patient seen and examined. Discussed the results of the echocardiogram with the patient. EF was 35 to 40%, technically difficult study, poorly visualized right ventricle, mild pulmonary hypertension. Blood pressure 173/103, heart rate 70, pulse ox 100%. Yesterday, lisinopril was increased to 40 mg daily, hydrochlorothiazide added and he was continued on amlodipine. He was also recently started on metoprolol succinate. 05/03 Patient is seen and examined. Patient developed a full-body rash starting last evening and worse this morning. It is itchy but he has been started on Benadryl with improvement. Yesterday we started Aldactone and hydrochlorothiazide. Today blood pressure is stable. Blood pressure 127/83, heart rate 75, pulse ox 99% on room air. No repeat blood work today. PHYSICAL EXAM: VITAL SIGNS: Reviewed. GENERAL: Well-developed in no acute distress. HEENT: Head is normocephalic. Pupils are equal, round. Sclerae anicteric. No JVD or thyromegaly LUNGS: Respirations even and unlabored. Lungs are clear to auscultation. HEART: Regular rate and rhythm. S1 and S2 heard. ABDOMEN: Soft. Nondistended. Nontender. EXTREMITIES: No clubbing or cyanosis. Peripheral pulses intact. No lower extremity edema NEUROLOGIC: Awake and alert. Oriented x 3. ASSESSMENT: Elevated troponins, Type II [place], status post cardiac cath revealing normal coronary arteries Recent upper respiratory infection E. coli bacteremia Sepsis with leukocytosis, fever, and hypotension Acute kidney injury, resolved Nonischemic cardiomyopathy with EF of 35-40% Elevated D-dimer, CTA negative for pulmonary embolism History of hypertension History of urethral stricture status post cystoscopy with urethral dilation PLAN: Continue amlodipine 5 mg daily, lisinopril to 40 mg daily, Toprol-XL 25 mg daily Discontinue hydrochlorothiazide and Aldactone due to rash Continue to monitor blood pressures Patient to follow-up postdischarge with Dr. Love Nurse practitioner note has been reviewed by physician. Signing provider agrees with the documented findings, assessment, and plan of care documented by TIE TAMPER as a scribe. Objective - Vital Signs Vital signs: Vital Signs Temp 98.0 F 05/03/24 08:00 Pulse 75 05/03/24 08:00 Resp 16 05/03/24 08:00 BP 131/84 05/03/24 08:00 Pulse Ox 100 05/03/24 08:00 FiO2 Intake & Output 05/02/24 05/03/24 05/03/24 18:59 06:59 18:59 Intake Total 118 118 Balance 118 118 Weight 88.7 kg Intake: Oral 118 118 Other: Voiding Method Indwelling Catheter Indwelling Catheter - Labs CBC & Chem 7: 05/01/24 06:13 05/01/24 06:13
[2024-05-03] MEDS: METOPROLOL SUCCINATE (ER) 25 MG TAB.ER.24H PO SCH (12:54)
[2024-05-03] MEDS: amLODIPine 10 MG TAB PO SCH (12:54)
[2024-05-03] MEDS: methylPREDNISolone 4 MG TAB TAPER PO SCH (12:55)
--- NOTE | 2024-05-03 14:15 | P.PN ---
Subjective Progress Note Date: 05/03/24 48-year-old man with PMH of autism panic attacks, had a panic attack earlier this morning with associated sharp chest pain, shortness of breath and dizziness. He describes the chest pain as being a sharp pain that is centrally located without radiation. He notes the pain having been 910/10 in intensity. He notes that nothing alleviates the pain and even presently when exerting himself in the bed he notes some centrally located chest pain. Additionally, he endorses 2-day history of elevated temperature, with Tmax being 101 F, and "not feeling well". He states that he had been feeling this way dating back more than a week ago, at that time he went to [facility] and was prescribed amoxicillin and prednisone and he began to feel better. However, he notes that this past weekend he began feeling the same way he had been before, with increased fatigue and fevers. 05/02 Patient was seen and examined. No acute events overnight. Voiding freely. BP 181/100 this morning. Cardiology has added Aldactone 50 mg PO QD. 05/03/2024 patient seen and examined at bedside. No new complaints. Developed a rash this morning on the back and bilateral upper arms. Denies shortness of breath, cough, chest pain, abdominal pain, nausea, vomiting, diarrhea, fever, chills. WBC 9.5, hemoglobin 12.2, MCV 89, platelet count 296,000, sodium 141, potassium 4.1, chloride 106, bicarb 28, BUN 12, creatinine 0.74, glucose 96, calcium 9.2, bilirubin 0.7, AST 33, ALT 67, alk phos 90, albumin 3.6 Review of systems: Pertinent positives and negatives as discussed in HPI, a complete review of systems was performed and all other systems are negative. Pertinent imaging and labs reviewed. Physical examination: Vital signs reviewed General: non toxic, no distress, appears at stated age Derm: no unusual rashes/lesions, warm, maculopapular erythematous rash on the back and bilateral upper extremities Head: atraumatic, normocephalic, symmetric Eyes: EOMI, anicteric sclera, pupils equal round reactive to light ENT: Nose and ears atraumatic Neck: No cervical lymphadenopathy, trachea midline, supple Mouth: no lip lesion, mucus membranes moist Cardiovascular: S1S2 reg, no murmur Lungs: CTA bilateral, no rhonchi, no rales, no accessory muscle use Abdominal: soft, nontender to palpation, no guarding Ext: muscle strength 5 out of 5 in all 4 extremities grossly, no gross muscle a trophy, no contractures, positive dorsalis pedis pulse bilateral, no edema Neuro: CN II-XI grossly intact, no gross focal neuro deficits Psych: Alert and oriented x3, appropriate affect and mood Assessment/Plan: #. Maculopapular rash likely due to allergic reaction to medications Hold Aldactone and hydrochlorothiazide Hydrocortisone cream 3 times daily as needed Benadryl 25 mg p.o. twice daily Continue to monitor clinical status #. Sepsis due to E. coli bacteremia BCx positive for E. coli. UCx neg. Continue Rocephin 2g IV QD. Discharge on Cefdinir 300 mg PO BID to complete a total of 14 days. #. Uretheral stricture likely contributing to above #. RORY, resolved Underwent cystoscopy with urethral dilation with Dr. Marie on 04/29. Will be referred to reconstructive urologist on outpatient basis #. Hypertensive urgency, resolved Blood pressure today downtrend to 110s SBP. Patient stable and asymptomatic Amlodipine 5 mg PO QD. Lisinopril 40 mg PO QD. Metoprolol 25 mg PO QD. Held Aldactone 50 mg PO QD and hydrochlorothiazide PO Telemetry monitoring. Cardiology on board. #. Type II NSTEMI: Cardiac cath 04/27 normal coronaries. ASA 81 mg PO QD. Lipitor 40 mg PO QHS. Follow up with Dr. Love on discharge #. Acute dyspnea, resolved Chest CTA unremarkable for filling defects consistent with pulmonary embolism, very minimal bibasilar groundglass opacity disease/atelectasis. No obvious focal infiltrates or definitive pneumonia. No significant shortness of breath for now. DVT Prophylaxis: Lovenox 40 mg SQ daily F: Oral intake E: None for now N: Heart healthy diet A: Can self ambulate CODE STATUS: FULL CODE. Bree Pineda MD PGY-1/Adult Neuropsychologist Dictation was produced using [employer] dictation software. please excuse any grammatical, word or spelling errors. I have seen and evaluated the patient today. Discussed with the resident and agree with the residents finding and plan as documented in the resident's note. Changes highlighted in blue font. Add Medrol dose pack. Hopeful discharge home tomorrow if BP maintains on current antihypertensive medications. Objective - Vital Signs Vital signs: Vital Signs Temp 97.9 F 05/02/24 19:58 Pulse 72 05/02/24 23:22 Resp 17 05/02/24 23:22 BP 119/69 05/03/24 05:32 Pulse Ox 100 05/02/24 23:22 FiO2 Intake & Output 05/02/24 05/03/24 05/03/24 18:59 06:59 18:59 Intake Total 118 Balance 118 Weight 88.7 kg Intake: Oral 118 Other: Voiding Method Indwelling Catheter - Labs CBC & Chem 7: 05/01/24 06:13 05/01/24 06:13
--- NOTE | 2024-05-03 14:41 | P.PN ---
Subjective Progress Note Date: 05/03/24 Patient is a 48-year-old male with past medical history significant for hypertension, urethral stricture with previous dilation. His primary care provider is Dr. Garvin. Patient presents emergency department yesterday afternoon complaining of substernal chest pain, diaphoresis, nausea and vomiting. Chest pain, severe, nonradiating, reported lasting 10 to 15 minutes. He did take 4 baby aspirin at home. His is at bedside, and states that he did get confused and pulled down the shower curtain at home. Patient believes he was having a panic attack. Of note, patient reportedly recently treated for URI by his PCP 1 to 2 weeks ago, given a course of amoxicillin and prednisone burst taper. States his symptoms initially improved and then worsened following completion of medications. Reportedly, having intermittent fevers, cough with occasional clear phlegm production. Denies purulent sputum, hemoptysis. Denies any abdominal pain. Denies any diarrhea. Appetite has been fair. Viral screen done at our facility negative for influenza A/B, COVID, RSV. Workup in the emergency department including a chest CTA which did not show any filling defects consistent with pulmonary embolism. Very minimal dependent groundglass opacities or atelectasis. No pleural effusions or pneumothoraces. CBC remarkable for leukocytosis with a WBC count of 26.3, hemoglobin 14.1, platelets 171. D-dimer was 7.6. CMP: Sodium 138, potassium 3.2, chloride 106, serum bicarb 15, BUN 27, creatinine 1.49, glucose 160. NT proBNP elevated at 2040. Troponins were elevated at 1.3, 1.17, and 0.8 respectively. EKG: Normal sinus rhythm, rate 100 bpm, T wave inversions in 3, aVF; no ST segment elevation or depressions. Patient was started on IV heparin per cardiology. Patient currently being evaluated in the emergency department. Resting comfortably in bed. His spouse is at bedside. Denies any further chest pain. Heparin continues per protocol. Denies heart palpitations, lightheadedness, syncopal events, orthopnea, PND, lower extremity edema. He is alert and oriented. Brain CT was done earlier and unremarkable for acute intracranial process. Did have low-grade temperature of 99.9 F. Empirically placed on antibiotics in the ED. UA remarkable for pyuria and rare bacteriuria. Blood pressure is marginal, did receive 2 L crystalloid fluid bolus in the ED. Current vital signs: Temperature 97.6 F, heart rate 70 bpm, blood pressure 87/59 mmHg, SpO2 97% on room air. 04/27/2024, seen the patient for a follow-up. The patient has improved considerably. The patient feels less short of breath. Afebrile. Hemodynamically stable and the patient is currently on room air oxygen with a 97 % pulse ox. Meanwhile, the patient's procalcitonin level was considerably elevated at 28.9. Blood culture came back positive for E. coli and I suspect that this E. coli septicemia is related to a urinary source. The patient has had issues with urinary stricture in the past. Cardiac catheterization was also done and the patient was found to have normal coronaries, preserved LV function, normal left ventricular end-diastolic pressure. White cell count is currently down to 5.9 with a hemoglobin 11.3 and a platelet count of 115. BUN is 9 with a creatinine of 0.66 and sodium levels at 139. Hemodynamically stable. On 04/28/2024, the patient is being seen for a follow-up. Patient is feeling well. No new complaints. Remains on IV Rocephin. Urology consultation has been requested regarding his history of ureteral stricture. The white cell count is down to 6.6 with a hemoglobin 10.9 and a platelet count of 135. Electrolytes are all within normal limits. BUN 6 with a creatinine of 0.7. LFTs are mildly elevated. Procalcitonin level was as high as 28. He is on room air oxygen. No chest pain. Cardiac catheterization was completed and the patient has a normal coronaries On 04/29/2024, the patient is being seen for a follow-up. Doing well. Remains on IV Rocephin. The patient has no fever. White cell count is normalized down to 6.2. Hemoglobin is 10.9. Platelet count is at 148. Electrolytes are all within normal limits with a BUN of 7 and a creatinine of 0.6. On a separate note, the patient was evaluated by urology. The patient has a urethral stricture and the patient is going to undergo a urethral dilatation with cystoscopy to improve bladder emptying. At On 04/30/2024, the patient is doing well. No complaints. The patient underwent a urethral dilatation yesterday by urology and the patient also underwent a cystoscopy and the patient currently has a Holden catheter in place. No hematuria. Remains on IV Rocephin. Remains on room air oxygen. Afebrile. White cell count is at 10 with a hemoglobin 10.8 and a platelet count of 222. Electrolytes are normal. Renal function is also within normal limits. No altered mentation. No hemodynamic instability. No other complaints otherwise. The patient is seen today May 02, 2024 in follow-up on the selective care unit. He is currently sitting up in a chair at the bedside. Awake and alert in no acute distress. Maintaining good O2 saturations in the 90s on room air. He has been having issues with hypertension. His medications have been adjusted. Current blood pressure 156/86 with a mean of 109. He is afebrile. Blood cultures were positive for E. coli. Urine culture revealed no growth. He remains on ceftriaxone. Lovenox for DVT prophylaxis. The patient is seen today May 03, 2024 in follow-up on the selective care unit. He is currently resting in bed. Awake and alert in no acute distress. He did have an rash develop after taking new medications suspect possibly from the Aldactone which is placed on hold. Otherwise he is doing well. He denies any worsening shortness of breath, cough or congestion. He is maintaining good O2 saturations up to 100% on room air. Afebrile. Hemodynamically stable. Blood culture was positive for E. coli. Urine culture revealed no growth. Lovenox for DVT prophylaxis. Objective - Vital Signs Vital signs: Vital Signs Temp 98.0 F 05/03/24 08:00 Pulse 75 05/03/24 12:00 Resp 16 05/03/24 08:00 BP 127/83 05/03/24 12:00 Pulse Ox 99 05/03/24 12:00 FiO2 Intake & Output 05/02/24 05/03/24 05/03/24 18:59 06:59 18:59 Intake Total 118 658 Balance 118 658 Weight 88.7 kg Intake: Oral 118 658 Other: Voiding Method Indwelling Catheter Indwelling Catheter - Exam GENERAL EXAM: Alert, 48-year-old male, sitting up in a chair, on room air, comfortable in no apparent distress. HEAD: Normocephalic. EYES: Normal reaction of pupils, equal size. NOSE: Clear with pink turbinates. THROAT: No erythema or exudates. NECK: No masses, no JVD. CHEST: No chest wall deformity. LUNGS: Equal air entry with no crackles, wheeze, rhonchi or dullness. CVS: S1 and S2 normal with no audible murmur, regular rhythm. ABDOMEN: No hepatosplenomegaly, normal bowel sounds, no guarding or rigidity. SPINE: No scoliosis or deformity SKIN: No rashes CENTRAL NERVOUS SYSTEM: No focal deficits, tone is normal in all 4 extremities. EXTREMITIES: There is no peripheral edema. No clubbing, no cyanosis. Peripheral pulses are intact. - Labs CBC & Chem 7: 05/01/24 06:13 05/01/24 06:13 Assessment and Plan Assessment: E. coli sepsis Currently on IV Rocephin 2 g every 24 hours. Urine culture revealed no growth. The patient also has previous history of urethral stricture that has required dilatation. Urology is on the case. Acute dyspnea, chest CTA unremarkable for filling defects consistent with pulmon tyler embolism, very minimal bibasilar groundglass opacity disease/atelectasis. No obvious focal infiltrates or definitive pneumonia. No significant shortness of breath for now. Elevated troponins probably demand type of myocardial ischemia type II second to underlying sepsis. Cardiac catheterization was done and the coronaries are within normal limits. Left-ventricular diastolic pressure is also within normal limits. Acute leukocytosis, recovered Anion gap metabolic acidosis, recovered Acute kidney injury, recovered Hypokalemia, replaced and improved Hypertension, improving Allergic reaction with rash suspect secondary to Aldactone and/or hydrochlorothiazide History of urethral stricture with previous dilation Obesity, with a BMI 31.5 kg/m Plan: The patient was seen and evaluated Labs and medications reviewed Remains on ceftriaxone Aldactone and hydrochlorothiazide on hold due to rash Blood pressure medications adjusted Stable and on room air Cleared for discharge from the pulmonary standpoint I have personally seen and examined the patient, performed the documentation and the assessment and plan as written. Number of minutes spent on the visit: 10 Dictation was produced using [employer] dictation software. Please excuse any grammatical, word or spelling errors.
[2024-05-03] MEDS: HYDROCORTISONE 1% CREAM 454 GM JAR TOPICAL PRN (17:36)
[2024-05-04 07:23] LABS: African American GFR (CKD) >90 (>60 ml/min/1.73 sqM); Anion Gap 9 mmol/L; Blood Urea Nitrogen 18 mg/dL (9-20); Calcium 9.7 mg/dL (8.4-10.2); Carbon Dioxide 28 mmol/L (22-30); Chloride 101 mmol/L (98-107); Glucose 111 mg/dL (74-99); Non-African American GFR(CKD) >90 (>60 ml/min/1.73 sqM); Sodium 138 mmol/L (137-145)
[2024-05-04 07:30] LABS: Basophils % (A) 0 %; Eosinophils % (A) 0 %; HGB 14.4 gm/dL (13.0-17.5); Lymphocytes # (A) 1.5 k/uL (1.0-4.8); Lymphocytes % (A) 9 %; MCH 28.5 pg (25.0-35.0); MCHC 31.3 g/dL (31.0-37.0); MCV 90.9 fL (80.0-100.0); Mean Platelet Volume 7.8; Monocytes # (A) 0.6 k/uL (0-1.0); Monocytes % (A) 3 %; Neutrophils # (A) 14.7 k/uL (1.3-7.7); Neutrophils % (A) 87 %; RBC 5.06 m/uL (4.30-5.90); RDW 13.9 % (11.5-15.5); WBC 16.8 k/uL (3.8-10.6)
[2024-05-04 07:38] LABS: Platelet Count 600 k/uL (150-450)
[2024-05-04 08:38] VITALS: BP 134/85; PULSE 74; TEMP 97.2
--- NOTE | 2024-05-04 14:16 | P.PN ---
Subjective Progress Note Date: 05/04/24 HISTORY OF PRESENT ILLNESS: This is a 48-year-old male with a past medical history significant for hype rtension, obesity, and anxiety. 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 We have been asked to see the patient in consultation for elevated troponins. Patient examined at the bedside in the emergency room. Patient states this morning he had a panic attack. He states shortly after this he began to have chest pain in the middle of his chest that felt like a stabbing sensation. He states the pain was in the middle of his chest and also on the right side of his chest. He states the pain lasted for about 15 minutes and then subsided. He states that he was not doing anything exertionally related at that time. He denies having any previous episodes of chest pain in the past. The patient does report that he has been feeling ill over the past week. He states that he went to his PCP office last Thursday and was diagnosed with an upper respiratory infection and was prescribed steroids and antibiotics. He states that he was starting to feel little bit better until this weekend when he started to feel worse again. He does report having a fever at home. According to EMS he had 101.0 temperature and route to the hospital. He continues to have a low-grade fever of 99.9. Patient is also hypotensive with a systolic blood pressure in the 80s90s. DIAGNOSTICS: - EKG reveals sinus tachycardia with T wave inversions inferiorly. - Chest xray negative for acute process. - Chest CTA: Negative for pulmonary embolism. Minimal dependent groundglass opacity/atelectasis. Correlate for possible atypical pneumonia. - Laboratory data: WBC 26.3. Hemoglobin 14.1. Platelet count 171. Sodium 138. Potassium 3.2. BUN 27. Creatinine 1.49. Lactic acid 2.7. Troponin 1.310. - Current home cardiac medications include lisinopril 20 mg daily and amlodipine 5 mg daily - No previous echocardiogram, stress test, or cardiac catheterization available in EMR for review 04/26/2024 Patient examined this morning in the emergency room. Patient's is at the bedside. Patient states he feels weak this morning. He states he has been sneezing and coughing a lot. He denies shortness of breath. He denies any chest pain at the time of examination. He remains on IV heparin. Troponins resulted at 1.310. 1.170. 0.859. 0.804. Blood pressures this morning remain marginal. 04/28/2024 Patient is s/p cardiac catheterization with Dr. Love revealing normal coronary arteries, normal LVEDP and preserved left ventricular systolic function. Patient seen this afternoon. Patient is sitting up in the chair. He denies any chest pain or pressure. He continues to report frequent coughing. He states that he feels tired and does not have much energy currently. Vital signs are stable. Telemetry reveals sinus mechanism 04/29/2024 Patient examined at the bedside. Patient denies chest pain or pressure. Denies shortness of breath. Patient does report having some anxiety today. Patient has been up ambulating without difficulty. Vital signs are stable. Blood pressure is elevated with a systolic between [id number]. He is maintaining sinus mechanism on telemetry. Patient was evaluated by urology and is scheduled for to undergo urethral dilation today. 04/30/2024 Patient examined this morning the bedside. Patient is status post cystoscopy with urethral dilation. Patient currently has indwelling urinary catheter with plans for removal tomorrow. Patient denies any chest pain or pressure. He denies shortness of breath. Blood pressure this morning elevated at 153/77. 05/01/2024 Patient examined this morning at the bedside. Patient denies any chest pain or pressure. He denies any shortness of breath. Telemetry reveals sinus mechanism. Patient's blood pressures remain elevated with a systolic in the 80s. 05/02 Patient seen and examined. Discussed the results of the echocardiogram with the patient. EF was 35 to 40%, technically difficult study, poorly visualized right ventricle, mild pulmonary hypertension. Blood pressure 173/103, heart rate 70, pulse ox 100%. Yesterday, lisinopril was increased to 40 mg daily, hydrochlorothiazide added and he was continued on amlodipine. He was also recently started on metoprolol succinate. 05/03 Patient is seen and examined. Patient developed a full-body rash starting last evening and worse this morning. It is itchy but he has been started on Benadryl with improvement. Yesterday we started Aldactone and hydrochlorothiazide. Today blood pressure is stable. Blood pressure 127/83, heart rate 75, pulse ox 99% on room air. No repeat blood work today. 05/04 Patient still has rash but he states that it has not gotten any worse. He has continued on Benadryl. No complaints of chest pain chest pressure or shortness of breath. Blood pressure 134/85, heart rate 74, pulse ox 100% on room air. Repeat blood work reveals WBC 16.8, hemoglobin 14.4. Electrolytes and renal function are normal with BUN of 18 creatinine 0.72. PHYSICAL EXAM: VITAL SIGNS: Reviewed. GENERAL: Well-developed in no acute distress. HEENT: Head is normocephalic. Pupils are equal, round. Sclerae anicteric. No JVD or thyromegaly LUNGS: Respirations even and unlabored. Lungs are clear to auscultation. HEART: Regular rate and rhythm. S1 and S2 heard. ABDOMEN: Soft. Nondistended. Nontender. EXTREMITIES: No clubbing or cyanosis. Peripheral pulses intact. No lower extremity edema NEUROLOGIC: Awake and alert. Oriented x 3. ASSESSMENT: Elevated troponins, Type II IA, status post cardiac cath revealing normal coronary arteries Recent upper respiratory infection E. coli bacteremia Sepsis with leukocytosis, fever, and hypotension Acute kidney injury, resolved Nonischemic cardiomyopathy with EF of 35-40% Elevated D-dimer, CTA negative for pulmonary embolism History of hypertension History of urethral stricture status post cystoscopy with urethral dilation New rash possible allergic reaction to HCTZ or aldactone PLAN: Continue amlodipine 5 mg daily, lisinopril to 40 mg daily, Toprol-XL 25 mg daily Continue to hold hydrochlorothiazide and Aldactone Patient to follow-up post discharge with Dr. Love Nurse practitioner note has been reviewed by physician. Signing provider agrees with the documented findings, assessment, and plan of care documented by FIELD [employer]OR as a scribe. Objective - Vital Signs Vital signs: Vital Signs Temp 97.2 F L 05/04/24 08:00 Pulse 74 05/04/24 08:00 Resp 16 05/04/24 08:00 BP 134/85 05/04/24 08:00 Pulse Ox 100 05/04/24 08:00 FiO2 Intake & Output 05/03/24 05/04/24 05/04/24 18:59 06:59 18:59 Intake Total 658 540 Balance 658 540 Weight 88.7 kg Intake: Oral 658 540 Other: Voiding Method Indwelling Catheter Indwelling Catheter - Labs CBC & Chem 7: 05/04/24 05:49 05/04/24 05:49 Labs: Abnormal Lab Results - Last 24 Hours (Table) 05/04/24 05/04/24 Range/Units 05:49 05:49 WBC 16.8 H (3.8-10.6) k/uL Plt Count 600 H D (150-450) k/uL Neutrophils # 14.7 H (1.3-7.7) k/uL Glucose 111 H (74-99) mg/dL
--- NOTE | 2024-05-04 15:36 | P.DS ---
Providers Date of admission: 04/25/24 13:20 Expected date of discharge: 05/04/24 Attending physician: Sarath Galdamez Consults: 04/25/24 13:13 Consult Physician Routine Consulting Provider: Efe Garcia Consult Reason/Comments: recent URI, possible atypical pna Do you want consulting provider notified?: Yes 04/25/24 13:20 Consult Physician Urgent Consulting Provider: [facility] Consult Reason/Comments: NSTEMI Do you want consulting provider notified?: Already Contacted 04/27/24 13:26 Consult Physician Routine Consulting Provider: Jh Marie Consult Reason/Comments: urethral stricture Do you want consulting provider notified?: Yes Primary care physician: [facility] Course: Hospital Course: 48-year-old man with PMH of autism panic attacks, had a panic attack earlier this morning with associated sharp chest pain, shortness of breath and dizziness. Labratory review: -WBCs 26.3, hemoglobin 14.1, hematocrit 41.5, platelet 171; D-dimer 7.66; sodium 138, potassium 3.2, bicarb 15, BUN 27, creatinine 1.49, calcium 9.3, magnesium 2.0, total bilirubin 1.5, AST 47, ALT 40, alkaline phosphatase 134; troponin 1.310 -Respiratory viral panel all negative Imaging: -Chest x-ray done in the ER showed no acute pulmonary process -CTA chest showed no evidence of pulmonary embolism with minimal dependent groundglass opacity/atelectasis, to be correlated for atypical pneumonia -EKG done in the ER showed heart rate of 100, no ST segment elevation or depression seen, T wave inversions. Patient was evaluated for NSTEMI and sepsis likely due to atypical pneumonia. Troponins trended, cardiac monitoring done, echocardiogram ordered, heparin drip initiated, IV fluids initiated, empiric antibiotics with Zithromax and Rocephin initiated, blood cultures ordered, sputum cultures ordered, Legionella antigen ordered, and pulmonology consulted, cardiology consulted. Patient was recommended to go undergo cardiac catheterization. Echocardiogram showed ejection fraction 35 to 40%. Catheterization showed normal coronary arteries with preserved left ventricular systolic function. Cardiology mentions likely this was an episode of transient cardiomyopathy related to his infection. Left ventriculogram shows normal LV size and systolic function with ejection fraction 50 to 55%. With patient was positive for E. coli on blood cultures, antibiotics switched to ceftriaxone IVPB. Final urine culture negative. Patient had history of urethral stricture and has required dilatation. Urology was consulted and recommended repeat urethral dilatation with cystoscopy. Patient had elevated blood pressure during hospital stay and medications were optimized particularly with the addition of hydrochlorothiazide and Aldactone. Blood pressure was controlled. However, patient developed a rash and was provided Medrol Dosepak, Benadryl as needed and hydrocortisone cream. New medications were also ceased. Rash improved and patient had no deterioration of clinical symptoms. Patient is cleared for discharge today with cefdinir for 9 additional days, a Medrol Dosepak, metoprolol succinate twice a day, amlodipine increased to 10 mg p.o. daily and lisinopril increased to 40 mg p.o. daily. Patient is advised to follow-up with trade union secretary, urologist, adolescent psychiatrist and PCP on outpatient basis. Final Diagnosis: #. Type II ME status post cardiac cath revealing normal coronary arteries #. Nonischemic cardiomyopathy with a EF of 35 to 40%, resolved #. Hypertensive urgency, resolved #. Sepsis due to E. coli bacteremia, resolved #. Acute kidney injury, resolved #. urethral stricture status post cystoscopy with urethral dilatation #. Acute systemic nonpruritic rash, likely due to medication induced allergy Physical examination: Vital signs reviewed General: non toxic, no distress Derm: no unusual rashes/lesions, warm, maculopapular erythematous rash nonpuritic on the back, abdomen and bilateral upper and lower extremities Head: atraumatic, normocephalic, symmetric Eyes: EOMI, anicteric sclera, pupils equal round reactive to light ENT: Nose and ears atraumatic Neck: No cervical lymphadenopathy, trachea midline, supple Mouth: no lip lesion, mucus membranes moist Cardiovascular: S1S2 reg, no murmur Lungs: CTA bilateral, no rhonchi, no rales, no accessory muscle use Abdominal: soft, nondistended, nontender to palpation, no guarding Ext: muscle strength 5 out of 5 in all 4 extremities grossly, no gross muscle atrophy, no contractures, positive dorsalis pedis pulse bilateral, no edema Neuro: CN II-XI grossly intact, no gross focal neuro deficits Psych: Alert, oriented, appropriate affect and mood A total of 36 minutes of time were spent preparing this complex discharge summary. Patient was discharged on 05/04/2024 at 1027. I have seen and evaluated the patient today. Discussed with the resident and agree with the residents finding and plan as documented in the resident's note. Changes highlighted in blue font. Patient Condition at Discharge: Stable Plan - Discharge Summary Discharge Rx Participant: Yes New Discharge Prescriptions: New Cefdinir [Omnicef] 300 mg PO BID 9 Days #18 capsule methylPREDNISolone Dose Pack [Medrol Dose Pack] 4 mg PO DIRECTED #1 packet Metoprolol Succinate (ER) [Toprol XL] 25 mg PO BID 90 Days #180 tab amLODIPine [Norvasc] 10 mg PO DAILY 90 Days #90 tab lisinopriL [Zestril] 40 mg PO DAILY #90 tab Continue Multivitamins, Thera [Multivitamin (formulary)] 1 tab PO DAILY Discontinued amLODIPine [Norvasc] 5 mg PO DAILY lisinopriL [Zestril] 20 mg PO DAILY Discharge Medication List Multivitamins, Thera [Multivitamin (formulary)] 1 tab PO DAILY 04/25/24 [History] Cefdinir [Omnicef] 300 mg PO BID 9 Days #18 capsule 04/30/24 [Rx] Metoprolol Succinate (ER) [Toprol XL] 25 mg PO BID 90 Days #180 tab 05/04/24 [Rx] amLODIPine [Norvasc] 10 mg PO DAILY 90 Days #90 tab 05/04/24 [Rx] lisinopriL [Zestril] 40 mg PO DAILY #90 tab 05/04/24 [Rx] methylPREDNISolone Dose Pack [Medrol Dose Pack] 4 mg PO DIRECTED #1 packet 05/04/24 [Rx] Follow up Appointment(s)/Referral(s): Clay Love MD [STAFF PHYSICIAN] - 1 Week (Office will Call you with an appointment) Jh Marie MD [STAFF PHYSICIAN] - 05/11/24 10:20 am Elroy Douglas MD [RESIDENT] - 05/19/24 10:00 am Vargas Power MD [STAFF PHYSICIAN] - 05/25/24 10:00 am Patient Instructions/Handouts: Hypertensive Crisis (DC) Activity/Diet/Wound Care/Special Instructions: Please follow-up with cardiology and urology within 1-2 weeks of discharge. Continue taking all medications as prescribed. Discharge/Stand Alone Forms: Work/School Release / Restrict Discharge Disposition: HOME SELF-CARE
== END 2024-05-04 13:44 | disposition home or self-care (01) | DRG 871 ==
LOC: EC 09:21 → 3SCARD 13:20
PROVIDERS: ADMIT Student in an Organized Health Care Education/Training Program; ATTEND Student in an Organized Health Care Education/Training Program
PROC: 0T7D8ZZ Dilation of Urethra, Via Natural or Artificial Opening Endoscopic (ICD-10-PCS; principal; 2024-04-27 08:30)
PROC: 4A023N7 Measurement of Cardiac Sampling and Pressure, Left Heart, Percutaneous Approach (ICD-10-PCS; 2024-04-29)
PROC: B2151ZZ Fluoroscopy of Left Heart using Low Osmolar Contrast (ICD-10-PCS; 2024-04-29)
PROC: B2111ZZ Fluoroscopy of Multiple Coronary Arteries using Low Osmolar Contrast (ICD-10-PCS; 2024-04-29)
DX: A41.51 Sepsis due to Escherichia coli [E. coli] (principal); I21.A1 Myocardial infarction type 2; J18.9 Pneumonia, unspecified organism; E87.20 Acidosis, unspecified; I27.20 Pulmonary hypertension, unspecified; I11.0 Hypertensive heart disease with heart failure; E66.9 Obesity, unspecified; I42.8 Other cardiomyopathies; I50.20 Unspecified systolic (congestive) heart failure; F84.0 Autistic disorder; N17.9 Acute kidney failure, unspecified; N39.0 Urinary tract infection, site not specified; R65.20 Severe sepsis without septic shock; R35.0 Frequency of micturition; R39.15 Urgency of urination; E87.6 Hypokalemia; F41.0 Panic disorder [episodic paroxysmal anxiety]; I16.0 Hypertensive urgency; L27.0 Generalized skin eruption due to drugs and medicaments taken internally; N35.911 Unspecified urethral stricture, male, meatal; Z68.31 Body mass index [BMI] 31.0-31.9, adult; Z79.82 Long term (current) use of aspirin; Z79.899 Other long term (current) drug therapy; Z20.822 Contact with and (suspected) exposure to COVID-19
CPT/HCPCS: 36415; 70450; 71046; 71275; 74177; 76705; 80048; 80053; 80061; 81001; 83036; 83605; 83735; 83880; 84145; 84484; 85025; 85379; 85610; 85652; 85730; 86618; 87040; 87077; 87086; 87186; 87449; 87636; 93005; 93306; 93458; 96361; 96365; 96366; 96367; 96368; 96375; 96376; 99291